=== PATIENT | male | born 1955 | race Caucasian/White ===

== ENCOUNTER 2016-07-02 08:48 | Inpatient (IN) | payer OTHER ==
[2016-07-02] MEDS ORDERED: ACETAMINOPHEN 500 MG TAB ONE (08:52)
[2016-07-02] MEDS ORDERED: NS 1,000 ML IV ONE ×2 (09:01)
[2016-07-02] MEDS ORDERED: ONDANSETRON 4 MG/2 ML VIAL IVP ONE (09:01)
[2016-07-02] MEDS ORDERED: ACETAMINOPHEN 500 MG TAB PO ONE (09:01)
--- NOTE | 2016-07-02 09:05 | EDPHY ---
H & P Stated Complaint: flu like symptoms x24-36 hours Time Seen by Provider: 07/02/16 08:51 HPI/ROS: CHIEF COMPLAINT: Fever, shaking chills, history of diabetic foot ulcer HISTORY OF PRESENT ILLNESS: The patient presents to the ED with a 1 day history of fever and shaking chills. The patient denies cough. He had 1 episode of vomiting and some loose stools. The patient is currently on Augmentin for his right diabetic foot infection. They report that his foot seems stable in terms of the erythema and swelling. The patient denies any dysuria. He has no complaints of acute abdominal pain. The patient denies sore throat or urinary frequency. The patient reports his symptoms of fever, weakness and rigors are moderate to severe in nature. REVIEW OF SYSTEMS: A comprehensive 10 point review of systems is otherwise negative aside from elements mentioned in the history of present illness. Source: Patient - Personal History Current Tetanus/Diphtheria Vaccine: Yes Current Tetanus Diphtheria and Acellular Pertussis (TDAP): Yes - Medical/Surgical History Hx Asthma: No Hx Chronic Respiratory Disease: No Hx Diabetes: Yes Hx Cardiac Disease: Yes Hx Renal Disease: Yes Hx Cirrhosis: No Hx Alcoholism: No Hx HIV/AIDS: No Hx Splenectomy or Spleen Trauma: No Other PMH: pmh- DM II, HTN, AFIB, PERIPHERAL NEUROPATHY, SLEEP APNEA, DECUBITUS ULCER TO R FOOT - Social History Smoking Status: Never smoked - Physical Exam Exam: General Appearance: Obese male, no acute distress Eyes: Pupils equal and round no pallor or injection ENT, Mouth: Mucous membranes moist Respiratory: There are no retractions, lungs are clear to auscultation Cardiovascular: Regular rate and rhythm, 2/6 systolic ejection murmur Gastrointestinal: Abdomen is soft and nontender, no masses, bowel sounds normal Neurological: A&O, normal motor function, normal sensory exam, normal cranial nerves Skin: Warm and dry, no rashes Musculoskeletal: Neck is supple nontender Extremities: Deep ulcer noted to the dorsum of the right foot with purulent drainage, tenderness and erythema noted to the right foot Constitutional: Initial Vital Signs Temperature (C) 39.5 C H 07/02/16 08:48 Heart Rate 96 07/02/16 08:48 Respiratory Rate 24 H 07/02/16 08:48 Blood Pressure 147/79 H 07/02/16 08:48 O2 Sat (%) 96 07/02/16 08:48 O2 Delivery Mode Nasal Cannula O2 (L/minute) 2 Allergies/Adverse Reactions: CATS Allergy (Mild, Uncoded 10/23/11 17:16) ITCHING/RASH Home Medications: Medication Instructions Recorded Clopidogrel Bisulfate [Plavix] 75 mg PO DAILY 11/06/10 DULoxetine [Cymbalta] 30 mg PO HS 11/06/10 FENOFIBRATE NANOCRYSTALLIZED 500 mg PO DAILY 11/06/10 [Tricor] Gabapentin [Neurontin] 600 mg PO TID 11/06/10 Insulin Glargine [Lantus Insulin 0 unit SQ HS 11/06/10 Vial] Levothyroxine [Levothroid] 175 mcg PO DAILY@1000 11/06/10 Omeprazole 20 mg PO DAILY 11/06/10 Ramipril [Altace] 1.25 mg PO DAILY 11/06/10 Rosuvastatin Calcium [Crestor] 10 mg PO DAILY 11/06/10 Vectoza 11/06/10 Medical Decision Making - Diagnostics EKG Interpretation: EKG: Complete interpretation has been separately recorded in the [employer] archive. Summary impression: Sinus rhythm, left anterior fascicular block, nonspecific T-wave changes noted Imaging: Chest x-ray PA lateral: Images reviewed by myself, negative for focal infiltrate per my interpretation. ED Course/Re-evaluation: The patient presents to the ED with fever and leukocytosis. The patient has no evidence of end-organ dysfunction. The patient does have a diabetic foot ulcer and has had a history of bacteremia from that the past. Patient had blood cultures x2 in the ED. The patient does have sepsis with positive SIRS criteria and a likely source of infection in his foot. The patient received IV vancomycin and Zosyn per recommendations of Dr. Tam Reyna from Infectious Disease. The patient will be admitted to the hospital for further management of his fever and sepsis. The patient has no evidence of severe sepsis or septic shock. Consultation was made with Dr. Vargas from the hospitalist service. The patient will be admitted for further management. Differential Diagnosis: Differential diagnosis considered includes pneumonia, influenza, sepsis, severe sepsis, septic shock, urinary tract infection, cellulitis, osteomyelitis - Data Points Laboratory Results: Laboratory Results 07/02/16 09:05 07/02/16 09:05 07/02/16 07/02/16 09:11 09:05 WBC 17.85 H 10^3/uL (3.80-9.50) RBC 5.17 10^6/uL (4.40-6.38) Hgb 13.9 g/dL (13.7-17.5) Hct 42.0 % (40.0-51.0) MCV 81.2 L fL (81.5-99.8) MCH 26.9 L pg (27.9-34.1) MCHC 33.1 g/dL (32.4-36.7) RDW 13.8 % (11.5-15.2) Plt Count 290 10^3/uL (150-400) MPV 10.6 fL (8.7-11.7) Neut % (Auto) 93.1 H % (39.3-74.2) Lymph % (Auto) 2.2 L % (15.0-45.0) [place] % (Auto) 3.8 L % (4.5-13.0) Eos % (Auto) 0.2 L % (0.6-7.6) Baso % (Auto) 0.2 L % (0.3-1.7) Nucleat RBC Rel Count 0.0 % (0.0-0.2) Absolute Neuts (auto) 16.62 H 10^3/uL (1.70-6.50) Absolute Lymphs (auto) 0.39 L 10^3/uL (1.00-3.00) Absolute Monos (auto) 0.67 10^3/uL (0.30-0.80) Absolute Eos (auto) 0.04 10^3/uL (0.03-0.40) Absolute Basos (auto) 0.04 10^3/uL (0.02-0.10) Absolute Nucleated RBC 0.00 10^3/uL (0-0.01) Immature Gran % 0.5 % (0.0-1.1) Immature Gran # 0.09 10^3/uL (0.00-0.10) VBG Lactic Acid 2.0 mmol/L (0.7-2.1) Sodium 138 mEq/L (134-144) Potassium 4.5 mEq/L (3.5-5.2) Chloride 107 mEq/L (97-110) Carbon Dioxide 24 mEq/l (22-31) Anion Gap 7 mEq/L (8-16) BUN 29 H mg/dL (7-23) Creatinine 1.7 H mg/dL (0.7-1.3) Estimated GFR 41 Glucose 210 H mg/dL (70-100) Calcium 8.7 mg/dL (8.5-10.4) Urine Color YELLOW Urine Appearance CLEAR Urine pH 5.0 (5.0-7.5) Ur Specific [place] 1.015 (1.002-1.030) Urine Protein 3+ H (NEGATIVE) Urine Ketones NEGATIVE (NEGATIVE) Urine Blood 2+ H (NEGATIVE) Urine Nitrate NEGATIVE (NEGATIVE) Urine Bilirubin NEGATIVE (NEGATIVE) Urine Urobilinogen NEGATIVE EU (0.2-1.0) Ur Leukocyte Esterase NEGATIVE (NEGATIVE) Urine RBC 5-10 H /hpf (0-3) Urine WBC 1-3 /hpf (0-3) Ur Epithelial Cells TRACE /lpf (NONE-1+) Urine Mucus TRACE /lpf (NONE-1+) Ur Culture Indicated? NOT INDICATED (NI) Urine Glucose 2+ H (NEGATIVE) Influenza A & B (PCR) NEGATIVE FOR FLU (NEGATIVE) Medications Given: Discontinued Medications Acetaminophen (Tylenol) 1,000 mg PO EDNOW ONE Stop: 07/02/16 09:02 Last Admin: 07/02/16 09:01 Dose: 1,000 mg Sodium Chloride (Ns) 1,000 mls @ 0 mls/hr IV EDNOW ONE PRN Reason: Wide Open Stop: 07/02/16 09:02 Last Admin: 07/02/16 09:10 Dose: 1,000 mls Sodium Chloride (Ns) 1,000 mls @ 0 mls/hr IV EDNOW ONE PRN Reason: Wide Open Stop: 07/02/16 09:02 Last Admin: 07/02/16 09:10 Dose: 1,000 mls Ondansetron HCl (Zofran) 4 mg IVP EDNOW ONE Stop: 07/02/16 09:02 Last Admin: 07/02/16 09:10 Dose: 4 mg Departure - Departure Disposition: [facility] Acute Clinical Impression: Sepsis affecting skin, Chronic renal insufficiency, Chronic kidney disease stage 3, Diabetic foot ulcer Condition: Fair
[2016-07-02 09:18] LABS: % IMMATURE GRANULYOCYTES 0.5 % (0.0-1.1); ABSOLUTE IMMATURE GRANULOCYTES 0.09 10^3/uL (0.00-0.10); ADD DIFF? NO; ADD MORPH? NO; ADD SCAN? NO; ATYPICAL LYMPHOCYTE FLAG 0 (0-99); FRAGMENT RBC FLAG 0 (0-99); HEMOGLOBIN 13.9 g/dL (13.7-17.5); LEFT SHIFT FLG 0 (0-99); LIPEMIA HEMOLYSIS FLAG 80 (0-99); MEAN CELL HEMOGLOBIN 26.9 pg (27.9-34.1); MEAN CELL HEMOGLOBIN CONCENTR. 33.1 g/dL (32.4-36.7); MEAN CELL VOLUME 81.2 fL (81.5-99.8); MEAN PLATELET VOLUME 10.6 fL (8.7-11.7); PLATELET CLUMPS FLAG 0 (0-99); PLATELET COUNT 290 10^3/uL (150-400); RED BLOOD CELL COUNT 5.17 10^6/uL (4.40-6.38); RED CELL DISTRIBUTION WIDTH 13.8 % (11.5-15.2)
[2016-07-02 09:29] LABS: COLOR YELLOW; LEUKOCYTE ESTERASE,URINE NEGATIVE (NEGATIVE); NITRITE,URINE NEGATIVE (NEGATIVE)
--- NOTE | 2016-07-02 09:35 | CPEKG ---
Heart Rate: 96 RR Interval: 625 P-R Interval: 192 QRSD Interval: 92 QT Interval: 364 QTC Interval: 460 P [place]: 49 QRS [place]: -56 T Wave [place]: 100 EKG Severity - ABNORMAL ECG - EKG Impression: SINUS RHYTHM EKG Impression: LEFT ANTERIOR FASCICULAR BLOCK EKG Impression: NONSPECIFIC T ABNORMALITIES, LATERAL LEADS Electronically Signed By: Bandar Kwan 02-Jul-2016 14:52:27
[2016-07-02 09:37] LABS: ANION GAP 7 mEq/L (8-16); CALCIUM 8.7 mg/dL (8.5-10.4); CARBON DIOXIDE 24 mEq/l (22-31); CHLORIDE 107 mEq/L (97-110); CREATININE 1.7 mg/dL (0.7-1.3); GLOMERULAR FILTRATION RATE 41; GLUCOSE 210 mg/dL (70-100); POTASSIUM 4.5 mEq/L (3.5-5.2); SODIUM 138 mEq/L (134-144)
[2016-07-02 09:37] LABS: MUCUS TRACE /lpf (NONE-1+)
--- NOTE | 2016-07-02 10:38 | DX ---
PA and Lateral Chest 9:23 a.m. Indication: Fever Comparison: 2 view chest dated April 08, 2008 Findings: Lungs are clear except for mild unchanged diffuse peribronchial thickening. No airspace con solidation, edema or effusion. Minimal cardiomegaly is new since 2007. Impression: 1. No pneumonia. Mild chronic airways disease. 2. New minimal cardiomegaly. No failure.
[2016-07-02] MEDS ORDERED: VANCOMYCIN HCL/NORMAL SALINE 250 ML IV ONE (11:01)
[2016-07-02] MEDS ORDERED: VANCOMYCIN 1.5 GM in D5W 250 ML IV ONE (11:02)
[2016-07-02] MEDS ORDERED: PIPERACILLIN/TAZO 4.5 GM/DEX 100 ML IV ONE (11:02)
[2016-07-02] MEDS ORDERED: ONDANSETRON DISINTEGRATING 4 MG TAB PO PRN (13:15)
[2016-07-02] MEDS ORDERED: D50W 25 GM/50 ML SYR IVP PRN (13:19)
--- NOTE | 2016-07-02 13:24 | PDGENHP ---
History and Physical - Chief Complaint Acute rigors - History of Present Illness PCP: Dr. Kern Primary infectious Disease: Dr. Reyna HPI: 61-year-old male presenting with acute rigors characterized as moderate to severe chills with associated fever and weakness, onset of symptoms at 4:00 a.m. on the day of presentation and duration persistent thereafter. Patient reports that he had otherwise been feeling well on the day prior to this presentation and he had gone to bed on the evening prior without any symptoms. That being said, the patient reports that he had a particularly large meal 2 days prior to this presentation and had resulted loose bowel movements for approximately 24 hours. Outside of these after mentioned symptoms, the patient reports that he has not had any sore throat, cough, dysuria, vomiting, worsening pain or erythema in his bilateral lower extremities. He does report that the fevers seemed to be alleviated by IV antibiotics received in the emergency department. His symptoms have occurred in the context of receiving approximately 1 and half weeks oral Augmentin therapy approximately 2-3 months ago. The patient reports that he has not been taking antibiotics immediately prior to this presentation. The patient has not taken any of his home medications on the morning of this presentation. The patient reports that his fasting blood glucose levels range between 103,970 on regular basis. He takes 100 units of Levemir twice daily and does not utilize a mealtime insulin sliding scale. History Information - Allergies/Home Medication List Allergies/Adverse Reactions: CATS Allergy (Mild, Uncoded 10/23/11 17:16) ITCHING/RASH Home Medications: Clopidogrel Bisulfate [Plavix] 75 mg PO DAILY 11/06/10 [Last Taken Unknown] DULoxetine [Cymbalta] 30 mg PO HS 11/06/10 [Last Taken 03/25/14 07:00] FENOFIBRATE NANOCRYSTALLIZED [Tricor] 500 mg PO DAILY 11/06/10 [Last Taken 03/25 20:00] Gabapentin [Neurontin] 600 mg PO TID 11/06/10 [Last Taken 03/26/14 05:00] Insulin Glargine [Lantus Insulin Vial] 0 unit SQ HS 11/06/10 [Last Taken Unknown ] Levothyroxine [Levothroid] 175 mcg PO DAILY@1000 11/06/10 [Last Taken 03/25/14 20:00] Omeprazole 20 mg PO DAILY 11/06/10 [Last Taken 03/25/14 08:00] Ramipril [Altace] 1.25 mg PO DAILY 11/06/10 [Last Taken Unknown] Rosuvastatin Calcium [Crestor] 10 mg PO DAILY 11/06/10 [Last Taken Unknown] Vectoza 11/06/10 [Last Taken Unknown] I have personally reviewed and updated: family history, medical history, social history, surgical history - Past Medical History atrial fibrillation (Status post ablation x2, currently on Xarelto), coronary artery disease (With cardiac stents in the , most recent nuclear stress test from March 2016 demonstrating small amount of ischemia at the apex as well as a fixed defect), hypertension, hyperlipidemia Additional medical history: Chronic kidney disease stage 3 with baseline serum creatinine level 1.6-1.9. Insulin-dependent diabetes. Ankle osteo myelitis. Bacteremia. Right lower extremity deep venous thrombosis prior to 2010. Chronic lower extremity wounds - Surgical History Additional surgical history: Numerous foot surgeries - Family History Additional family history: First-degree relatives with sarcoidosis as well as diabetes mellitus - Social History Smoking Status: Never smoked Alcohol Use: None Drug Use: None Additional social history: Normally independent in his ADLs Review of Systems ROS: 10pt was reviewed & negative except for what was stated in HPI & below Constitutional: Reports: chills, fever, weakness Physical Exam Temp Pulse Resp BP Pulse Ox 37.2 C 81 18 120/56 L 96 07/02/16 12:34 07/02/16 12:34 07/02/16 12:34 07/02/16 12:34 07/02/16 12:34 O2 (L/minute) 2 Constitutional: no apparent distress, appears nourished, not in pain, obese, No uncomfortable Eyes: PERRL, anicteric sclera, EOMI Ears, Nose, Mouth, Throat: moist mucous membranes, hearing normal, ears appear normal, no oral mucosal ulcers Cardiovascular: regular rate and rhythym, no murmur, rub, or gallop, No irregularly irregular, No tachycardia, No edema Respiratory: no respiratory distress, no rales or rhonchi, clear to auscultation Gastrointestinal: normoactive bowel sounds, soft, non-tender abdomen, no palpable masses Skin: other (Ulcerations on the bilateral lower extremities, right plantar surface with created ulceration, no surrounding erythema, abrasion on the anterior right calf) Musculoskeletal: other (Full range of motion bilateral ankles without any pain, full range of motion of the toes without any pain) Neurologic: AAOx3, No sensation intact bilaterally (Paresthesias over the bilateral plantar surfaces of his feet), No weakness (Motor 5/5 bilateral lower extremity) Psychiatric: interacting appropriately, not anxious, not encephalopathic, thought process linear Lab Data & Imaging Review 07/02/16 09:05 07/02/16 09:05 WBC 17.85 10^3/uL (3.80-9.50) H 07/02/16 09:05 RBC 5.17 10^6/uL (4.40-6.38) 07/02/16 09:05 Hgb 13.9 g/dL (13.7-17.5) 07/02/16 09:05 Hct 42.0 % (40.0-51.0) 07/02/16 09:05 MCV 81.2 fL (81.5-99.8) L 07/02/16 09:05 MCH 26.9 pg (27.9-34.1) L 07/02/16 09:05 MCHC 33.1 g/dL (32.4-36.7) 07/02/16 09:05 RDW 13.8 % (11.5-15.2) 07/02/16 09:05 Plt Count 290 10^3/uL (150-400) 07/02/16 09:05 MPV 10.6 fL (8.7-11.7) 07/02/16 09:05 Neut % (Auto) 93.1 % (39.3-74.2) H 07/02/16 09:05 Lymph % (Auto) 2.2 % (15.0-45.0) L 07/02/16 09:05 [place] % (Auto) 3.8 % (4.5-13.0) L 07/02/16 09:05 Eos % (Auto) 0.2 % (0.6-7.6) L 07/02/16 09:05 Baso % (Auto) 0.2 % (0.3-1.7) L 07/02/16 09:05 Nucleat RBC Rel Count 0.0 % (0.0-0.2) 07/02/16 09:05 Absolute Neuts (auto) 16.62 10^3/uL (1.70-6.50) H 07/02/16 09:05 Absolute Lymphs (auto) 0.39 10^3/uL (1.00-3.00) L 07/02/16 09:05 Absolute Monos (auto) 0.67 10^3/uL (0.30-0.80) 07/02/16 09:05 Absolute Eos (auto) 0.04 10^3/uL (0.03-0.40) 07/02/16 09:05 Absolute Basos (auto) 0.04 10^3/uL (0.02-0.10) 07/02/16 09:05 Absolute Nucleated RBC 0.00 10^3/uL (0-0.01) 07/02/16 09:05 Immature Gran % 0.5 % (0.0-1.1) 07/02/16 09:05 Immature Gran # 0.09 10^3/uL (0.00-0.10) 07/02/16 09:05 VBG Lactic Acid 2.0 mmol/L (0.7-2.1) 07/02/16 09:05 Sodium 138 mEq/L (134-144) 07/02/16 09:05 Potassium 4.5 mEq/L (3.5-5.2) 07/02/16 09:05 Chloride 107 mEq/L (97-110) 07/02/16 09:05 Carbon Dioxide 24 mEq/l (22-31) 07/02/16 09:05 Anion Gap 7 mEq/L (8-16) 07/02/16 09:05 BUN 29 mg/dL (7-23) H 07/02/16 09:05 Creatinine 1.7 mg/dL (0.7-1.3) H 07/02/16 09:05 Estimated GFR 41 07/02/16 09:05 Glucose 210 mg/dL (70-100) H 07/02/16 09:05 Calcium 8.7 mg/dL (8.5-10.4) 07/02/16 09:05 Urine Color YELLOW 07/02/16 09:11 Urine Appearance CLEAR 07/02/16 09:11 Urine pH 5.0 (5.0-7.5) 07/02/16 09:11 Ur Specific [place] 1.015 (1.002-1.030) 07/02/16 09:11 Urine Protein 3+ (NEGATIVE) H 07/02/16 09:11 Urine Ketones NEGATIVE (NEGATIVE) 07/02/16 09:11 Urine Blood 2+ (NEGATIVE) H 07/02/16 09:11 Urine Nitrate NEGATIVE (NEGATIVE) 07/02/16 09:11 Urine Bilirubin NEGATIVE (NEGATIVE) 07/02/16 09:11 Urine Urobilinogen NEGATIVE EU (0.2-1.0) 07/02/16 09:11 Ur Leukocyte Esterase NEGATIVE (NEGATIVE) 07/02/16 09:11 Urine RBC 5-10 /hpf (0-3) H 07/02/16 09:11 Urine WBC 1-3 /hpf (0-3) 07/02/16 09:11 Ur Epithelial Cells TRACE /lpf (NONE-1+) 07/02/16 09:11 Urine Mucus TRACE /lpf (NONE-1+) 07/02/16 09:11 Ur Culture Indicated? NOT INDICATED (NI) 07/02/16 09:11 Urine Glucose 2+ (NEGATIVE) H 07/02/16 09:11 Influenza A & B (PCR) NEGATIVE FOR FLU (NEGATIVE) 07/02/16 09:05 Visualized and Interpreted Chest x-ray results: Yes Chest X-Ray results: no infiltrate, other (Cardiomegaly) Visualized and Interpreted EKG results: Yes EKG Interpretation: Positive for: other (Left anterior fascicular block) Assessment & Plan Assessment: 61-year-old male presenting with sepsis in the setting of lower extremity wounds Plan: 1. Sepsis. Acute, new problem this provider, further workup indicated. Evidenced by fever of 39.5+ tachycardia of 96+ tachypnea of 24+ leukocytosis white blood cell count of 17,900 plus clear evidence of infection with lower extremity wounds and suspected bacteremia, resulting in autonomic dysregulation requiring empiric IV fluids (2 L received in the emergency department) plus empiric IV antibiotics -hypotensive with systolic blood pressure 90 emergency department, continue IV normal saline and repeat serum lactic acid level if recurrent hypotension identified -discussed with Dr. Kwan in the emergency department, we both believe that the patient meets criteria for sepsis and should be treated as such -send blood cultures to evaluate for bacteremia -flu PCR negative -continue empiric IV vancomycin and IV Zosyn, both renally dosed 2. Lower extremity wounds. Chronic, most likely source of infection, infectious Disease consultation appreciated -wound care consultation ordered, will hold on surgical wound consultation until the patient has been evaluated by our wound care team 3. Chronic kidney disease stage 3. Stay patient's serum creatinine level is currently at baseline, continue to monitor closely -he is at risk for volume overload, continue to monitor strict I&Os as well as daily weights -will be holding his diuretic and ARB therapy given his acute infection 4. Paroxysmal atrial fibrillation. Status post ablation x2, continue on beta- cee, adjust from atenolol to metoprolol given history of chronic kidney disease -continue Xarelto -monitor for RVR on telemetry 5. Insulin-dependent diabetes mellitus. Chronic, I reviewed outside records including [facility] note by Dr. Degroot, at that time she reported that patient's blood glucose levels were particularly uncontrolled and encouraged better management in the outpatient setting -get hemoglobin A1c -placed on mealtime insulin sliding scale and continue home dosing of 100 units twice daily 6. Hypertension. Chronic, continue home medications with the exception of diuretic and ARB 7. Chronic coronary artery disease. Currently no chest pain, continue low-dose aspirin Diet. Diabetic Prophylaxis. High risk patient, currently on Xarelto Code. Full, is MPOA Disposition. Anticipated discharge uncertain this time, anticipated length stay is greater than 48 hours warranting inpatient admission status for acute sepsis in the setting of lower extremity wounds with suspected bacteremia and blood culture monitoring with IV empiric antibiotics required. Patient has numerous comorbid conditions as mentioned above which rendered him high risk for morbidity and mortality.
[2016-07-02] MEDS: METOPROLOL TARTRATE 25 MG TAB PO SCH ×2 (15:04→20:46)
[2016-07-02] MEDS: ACETAMINOPHEN 325 MG TAB PO PRN ×2 (15:09→23:32)
[2016-07-02] MEDS: NS 1,000 ML IV SCH ×2 (15:10→20:45)
[2016-07-02] MEDS ORDERED: DICYCLOMINE 20 MG TAB PO PRN (16:05)
[2016-07-02] MEDS ORDERED: RIVAROXABAN 10 MG TAB PO SCH (16:30)
[2016-07-02] MEDS ORDERED: NON-FORMULARY NEW DRUG (Dulaglutide [Trulicity] 1.5 MG) SQ SCH (16:30)
--- NOTE | 2016-07-02 16:53 | WOCRNPDOC ---
[facility] Advanced Assessment Note - Skin Integrity Problem, Advanced Assess Right Medial Foot Diabetic Ulcer Dressing Type: Gauze Dressing Description: Intact, Saturated Exudate Amount: Minimal Exudate Characteristic(s): Serosanguinous Integumentary Issue Intervention: Visualized Under Dressing Linda Wound Tissue: Erythema (marked before wound consult), Calloused Wound Bed Color: Red, Yellow Wound Bed Constitution: Granulation Tissue (70%), Smooth Tissue (20%), Adhered Slough (10%) Wound Edges: Thick Site Measurement - Head-to-Toe Length X Width X Depth (cm): 6x3.1x0.7 Skin Integrity Problem Comment: Dr. Degroot to assess tomorrow and possibly inject with Amniofill. Graft that was placed on 06/28 has been removed. There may be some reminants in wound bed. Area was not cleaned aggressively to preserve what may remain of the graft. Dressing given to Rn Alvaro to place. Family did not have any questions. Left Second Toe Dressing Type: Open to Air Wound Bed Constitution: Scab Site Measurement - Head-to-Toe Length X Width X Depth (cm): 0.5x0.8xscab Skin Integrity Problem Comment: Toenail missing. Will write wound orders. No surrounding erythema. Left Lower Medial Leg Dressing Type: Open to Air Wound Bed Constitution: Healed (90%) Wound Edges: Epithelizing, Attached Site Measurement - Head-to-Toe Length X Width X Depth (cm): 0.5x1x0.1 Skin Integrity Problem Comment: Healing wound with no concerns. Will cover for protection.
[2016-07-02] MEDS: RIVAROXABAN 20 MG TAB PO SCH (17:00)
[2016-07-02] MEDS: INSULIN REGULAR HUMAN 100 UNIT/ML SC SCH ×2 (18:07→20:45)
--- NOTE | 2016-07-02 18:13 | PCMIDPN ---
Assessment/Plan: Assessment/Plan: * Sepsis likely due to right lower extremity cellulitis/skin and soft tissue infection associated with chronic plantar wound: Fever and rigors concerning for concomitant bacteremia. Previous remote history of MRSA bacteremia. Primary concerns would be for Staphylococcus aureus including MRSA or beta- hemolytic streptococci based on appearance. Given chronicity of wound, gram- negative rods and anaerobes including Pseudomonas are of consideration. Will continue empiric vancomycin and Zosyn pending further culture data. 07/02/16 18:09 Subjective: Patient well known to me [facility] Recent application of Amniofix to plantar wound; patient thinks large amount came off due to drainage. Patient admitted to hospital after presenting to the emergency department with fever, rigors and inability to get out of bed this a.m.. Patient noted fever of 103 with shaking chills. [place] too weak to get out of bed to come in to wound clinic for evaluation and therefore called 911. Patient notes that right lower extremity may be faintly erythematous over last 2 days. He does describe having diarrhea and excessive flatulence on Saturday after eating a large carbohydrate laden meal - diarrhea now resolved. Some associated nausea but no vomiting. No cough or shortness of breath. No urinary tract symptoms. Evaluation in emergency department revealed prominent leukocytosis with temperature to 39.5. Feels clinically improved after receiving IV rehydration and initial antibiotic therapy. No recent travel. Objective: Vital Signs Temp Pulse Resp BP Pulse Ox 38.1 C 91 18 97/76 L 92 07/02/16 17:00 07/02/16 15:44 07/02/16 15:44 07/02/16 15:44 07/02/16 15:44 07/01/16 07/02/16 07/03/16 05:59 05:59 05:59 Intake Total 1300 Balance 1300 Status post vancomycin and Zosyn in emergency department; no preceding antibiotic therapy Chest x-ray no infiltrate Flu PCR negative Blood cultures x2 pending - Physical Exam General Appearance: alert, no apparent distress EENT: pharynx normal, No scleral icterus, No conjunctival petechiae Respiratory: lungs clear, No respiratory distress Cardiac/Chest: regular rate, rhythm, No systolic murmur Extremities: inflammation (Faint erythema over right lower extremity with mild warmth and tenderness; plantar ulceration without purulent drainage and mixed granulation with small amount slough; no surrounding erythema at wound margins) Abdomen: non-tender, No distended Skin: No embolic lesions Neuro/Psych: alert, No confused ICD10 Worksheet Patient Problems: Problems Problem Status Diagnosed Chronic kidney disease stage 3 Acute Chronic renal insufficiency Acute Diabetic foot ulcer Acute Sepsis affecting skin Acute CAD - Coronary arteriosclerosis Active Diabetic neuropathy Active History of - deep vein thrombosis Active Insulin-treated [id number] diabetes mellitus Active 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
[2016-07-02] MEDS: PIPERACILLIN/TAZO 3.375 GM/DEX 50 ML IV SCH (20:45)
[2016-07-02] MEDS: DULoxetine 30 MG CAP PO SCH (20:46)
[2016-07-02] MEDS ORDERED: INSULIN DETEMIR SQ SCH (21:00)
[2016-07-02] MEDS ORDERED: [UNRECOGNIZED DRUG - OTHER] SQ SCH (21:00)
[2016-07-02] MEDS ORDERED: GABAPENTIN 100 MG CAP PO SCH (22:00)
[2016-07-03] MEDS: NS 1,000 ML IV SCH ×2 (04:02→10:59)
[2016-07-03] MEDS: PIPERACILLIN/TAZO 3.375 GM/DEX 50 ML IV SCH (04:02)
[2016-07-03] MEDS: LEVOTHYROXINE 125 MCG TAB PO SCH (04:02)
[2016-07-03 05:27] LABS: % IMMATURE GRANULYOCYTES 0.4 % (0.0-1.1); ABSOLUTE IMMATURE GRANULOCYTES 0.06 10^3/uL (0.00-0.10); ADD DIFF? NO; ADD MORPH? NO; ADD SCAN? NO; ATYPICAL LYMPHOCYTE FLAG 0 (0-99); FRAGMENT RBC FLAG 0 (0-99); HEMATOCRIT 34.6 % (40.0-51.0); LEFT SHIFT FLG 20 (0-99); LIPEMIA HEMOLYSIS FLAG 80 (0-99); MEAN CELL HEMOGLOBIN 26.9 pg (27.9-34.1); MEAN CELL HEMOGLOBIN CONCENTR. 31.8 g/dL (32.4-36.7); MEAN CELL VOLUME 84.6 fL (81.5-99.8); MEAN PLATELET VOLUME 10.9 fL (8.7-11.7); PLATELET CLUMPS FLAG 0 (0-99); PLATELET COUNT 230 10^3/uL (150-400); RED BLOOD CELL COUNT 4.09 10^6/uL (4.40-6.38); RED CELL DISTRIBUTION WIDTH 14.4 % (11.5-15.2)
[2016-07-03 05:54] LABS: ANION GAP 5 mEq/L (8-16); CALCIUM 7.3 mg/dL (8.5-10.4); CARBON DIOXIDE 20 mEq/l (22-31); CHLORIDE 110 mEq/L (97-110); CREATININE 3.5 mg/dL (0.7-1.3); GLOMERULAR FILTRATION RATE 18; GLUCOSE 121 mg/dL (70-100); POTASSIUM 4.6 mEq/L (3.5-5.2); SODIUM 135 mEq/L (134-144)
[2016-07-03] MEDS: INSULIN REGULAR HUMAN 100 UNIT/ML SC SCH ×4 (09:44→20:34)
[2016-07-03 09:48] LABS: HEMOGLOBIN A1C 8.9 % (4.0-6.0)
[2016-07-03] MEDS: LANSOPRAZOLE SUSP 3 MG/ML UDSYR (Peds) PO SCH (10:06)
[2016-07-03] MEDS: METOPROLOL TARTRATE 25 MG TAB PO SCH ×2 (10:07→20:47)
[2016-07-03] MEDS: FENOFIBRATE 145 MG TAB PO SCH (10:07)
[2016-07-03] MEDS: RIVAROXABAN 15 MG TAB PO SCH (10:08)
[2016-07-03] MEDS: ASPIRIN EC 81 MG TAB PO SCH (10:08)
[2016-07-03] MEDS: GABAPENTIN 100 MG CAP PO SCH ×3 (10:08→20:47)
[2016-07-03] MEDS: INSULIN DETEMIR 75 UNIT SQ SCH ×2 (10:36→20:48)
[2016-07-03] MEDS: RIVAROXABAN 20 MG TAB PO SCH (10:53)
[2016-07-03] MEDS: PIPERACILLIN/TAZO 2.25 GM/DEX 50 ML IV SCH ×2 (11:14→18:28)
[2016-07-03] MEDS ORDERED: VANCOMYCIN 1.5 GM in D5W 250 ML IV SCH (12:00)
--- NOTE | 2016-07-03 12:02 | PCMIDPN ---
Assessment/Plan: Assessment/Plan: * Sepsis likely due to right lower extremity cellulitis/skin and soft tissue infection associated with chronic plantar wound: Persistent fever and leukocytosis with negative blood cultures to date. Right lower extremity erythema less prominent. Continue empiric Zosyn dose adjusted for renal insufficiency. Hold vancomycin as outlined below given abrupt increase in creatinine to 3.5. Will check random level as suspect he will still be therapeutic at this point in time. * Diarrhea: Recurrent diarrhea x2 this a.m. after having diarrhea on Saturday; will obtain GI pathogen PCR panel for further evaluation. * Acute on chronic renal failure: Likely due to ATN associated with hypovolemia and decreased blood pressure. Antibiotic adjustments as outlined above. Findings and plan were reviewed with patient, Dr. Degroot, and Dr. Vargas. 07/03/16 11:59 Subjective: Patient feels improved. Complains of diarrhea x2 this a.m. with 1 accident. Objective: Vital Signs Temp Pulse Resp BP Pulse Ox 36.8 C 67 18 116/59 L 93 07/03/16 11:28 07/03/16 11:28 07/03/16 11:28 07/03/16 11:28 07/03/16 11:28 Laboratory Results 07/03/16 04:17 07/03/16 04:17 07/02/16 07/03/16 07/04/16 05:59 05:59 05:59 Intake Total 1800 Output Total 750 Balance 1050 Vancomycin # 2 Zosyn # 2 Blood cultures x2 no growth Tm 39.5 - Physical Exam General Appearance: alert, no apparent distress EENT: pharynx normal, dry mucous membranes, No scleral icterus, No conjunctival petechiae Respiratory: lungs clear, No respiratory distress Cardiac/Chest: regular rate, rhythm, No systolic murmur Extremities: inflammation (Right lower extremity with less intense erythema above ankle; plantar wound without change in no purulent drainage or surrounding erythema; less tender over anterior whitaker) Abdomen: non-tender, No distended ICD10 Worksheet Patient Problems: Problems Problem Status Diagnosed Chronic kidney disease stage 3 Acute Chronic renal insufficiency Acute Diabetic foot ulcer Acute Sepsis affecting skin Acute CAD - Coronary arteriosclerosis Active Diabetic neuropathy Active History of - deep vein thrombosis Active Insulin-treated hst-sjhtotn-xxcgddttl diabetes mellitus Active 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
[2016-07-03] MEDS: ACETAMINOPHEN 325 MG TAB PO PRN (13:46)
[2016-07-03 13:47] LABS: COLOR YELLOW; LEUKOCYTE ESTERASE,URINE NEGATIVE (NEGATIVE); NITRITE,URINE NEGATIVE (NEGATIVE)
[2016-07-03 14:08] LABS: MUCUS TRACE /lpf (NONE-1+)
--- NOTE | 2016-07-03 14:16 | HOSPPROG ---
Hospitalist Progress Note Assessment/Plan: Assessment: 61-year-old male presenting with sepsis in the setting of lower extremity wounds /cellulitis Plan: 1. Sepsis. Evidenced by fever of 39.5+ tachycardia of 96+ tachypnea of 24+ leukocytosis white blood cell count of 17,900 plus clear evidence of infection with lower extremity wounds/cellulitis and suspected bacteremia, resulting in autonomic dysregulation requiring empiric IV fluids (2 L received in the emergency department) plus empiric IV antibiotics -CXR w/o focal infiltrate (personally interpreted) -hypotensive with systolic blood pressure 90 emergency department, developed HARSHIL as a result -fever persists, monitoring BCx, monitoring WBC -cont Abx and IVF 2. Lower extremity wounds/cellulitis. Most likely source of infection -appreciate wound care and surgical wound consult by Dr. Degroot -d/w Dr. Reyna, will cont zosyn renally dosed and check vanco level, holding dose presently given HARSHIL 3. HARSHIL on Chronic kidney disease stage 3. Acute, new problem to this provider, further w/u indicated. Rapid rise in Cr from 1.7 to 3.5 likely 2/2 hypoperfusion w/ SBP 90s yesterday -repeat UA demonstrating RBCs, unclear if industrial sales representative of dysmorphic RBCs and evolution of ATN -cont NS at 150cc/hr, net positive 6lbs, monitor for signs of overload -get FeNa, and if > 1% will get RENE, consult renal, and consider slowing IVF -monitor strict I/O, weights -cont holding diuretic/ARB (last dose 07/01) -reduce insulin and gabapentin 4. Paroxysmal atrial fibrillation. Status post ablation x2, continue on beta- cee, adjust from atenolol to metoprolol given history of chronic kidney disease -continue Xarelto -monitor for RVR on telemetry 5. Insulin-dependent diabetes mellitus. Chronic, I reviewed outside records including 05/03/2016 [facility] note by Dr. Degroot, at that time she reported that patient's blood glucose levels were particularly uncontrolled and encouraged better management in the outpatient setting -get hemoglobin A1c -placed on mealtime insulin sliding scale and reduce lantus to 75u bid given his renal insufficiency 6. Hypertension. Chronic, hold home Rx given hypotension 7. Chronic coronary artery disease. Continue low-dose aspirin -if chest pain, get EKG/trop Diet. Diabetic Prophylaxis. High risk patient, currently on Xarelto Code. Full, is MPOA Disposition. Anticipated discharge uncertain this time, pending clinical stability. Subjective: Patient with some right-sided chest discomfort, oliguria, beginning to have some diarrhea Objective: Vital Signs Temp Pulse Resp BP Pulse Ox 36.8 C 67 18 116/59 L 93 07/03/16 11:28 07/03/16 11:28 07/03/16 11:28 07/03/16 11:28 07/03/16 11:28 Laboratory Results 07/03/16 04:17 07/03/16 04:17 07/02/16 07/03/16 07/04/16 05:59 05:59 05:59 Intake Total 1800 Output Total 750 Balance 1050 - Physical Exam Constitutional: no apparent distress, not in pain, obese, No uncomfortable Cardiovascular: systolic murmur (1 6 at the sternum), edema (2+ bilateral lower extremity), No irregularly irregular, No tachycardia Respiratory: no respiratory distress, no rales or rhonchi, clear to auscultation Gastrointestinal: normoactive bowel sounds, soft, non-tender abdomen, no palpable masses Skin: other (Bandaged wounds bilateral lower extremities plantar and dorsal surfaces of feet without a significant amount of surrounding induration) Musculoskeletal: full muscle strength, no muscle tenderness, normal joint ROM Neurologic: AAOx3, sensation intact bilaterally Psychiatric: interacting appropriately, not anxious, not encephalopathic, thought process linear ICD10 Worksheet Patient Problems: Problems Problem Status Diagnosed Chronic kidney disease stage 3 Acute Chronic renal insufficiency Acute Diabetic foot ulcer Acute Sepsis affecting skin Acute CAD - Coronary arteriosclerosis Active Diabetic neuropathy Active History of - deep vein thrombosis Active Insulin-treated bqs-svjqfyc-nockukyko diabetes mellitus Active 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
--- NOTE | 2016-07-03 15:59 | CPEKG ---
Heart Rate: 76 RR Interval: 789 P-R Interval: 188 QRSD Interval: 92 QT Interval: 400 QTC Interval: 450 P [place]: 26 QRS [place]: -41 T Wave [place]: 76 EKG Severity - OTHERWISE NORMAL ECG - EKG Impression: SINUS RHYTHM EKG Impression: LEFT AXIS DEVIATION Electronically Signed By: Toshia Gallegos 03-Jul-2016 16:31:38
[2016-07-03] MEDS ORDERED: CEPACOL LOZENGE PO PRN (17:48)
--- NOTE | 2016-07-03 18:11 | SOAPPROG ---
SOAP Progress Note Assessment/Plan: Assessment: 61-year-old man well known to the our service for chronic diabetic foot wound of his right plantar foot Admitted for cellulitis of RLE, wound likely source of infection Will place amniofill to the wound tomorrow 07/04/16 Discussed with Appreciate hospitalists and ID S: feeling well. no complaints O: sitting upright in bed, NAD R plantar wound clean and dry. no overt evidence of infection RLE cellulitis receeding from marked line Objective: Vital Signs Temp Pulse Resp BP Pulse Ox 37.4 C 77 16 136/72 H 94 07/03/16 16:00 07/03/16 16:00 07/03/16 16:00 07/03/16 16:00 07/03/16 16:00 Laboratory Results 07/03/16 04:17 07/03/16 04:17 07/02/16 07/03/16 07/04/16 05:59 05:59 05:59 Intake Total 1800 Output Total 750 Balance 1050 ICD10 Worksheet Patient Problems: Problems Problem Status Diagnosed Chronic kidney disease stage 3 Acute Chronic renal insufficiency Acute Diabetic foot ulcer Acute Sepsis affecting skin Acute CAD - Coronary arteriosclerosis Active Diabetic neuropathy Active History of - deep vein thrombosis Active Insulin-treated ill-sowcuwl-qidxukxsr diabetes mellitus Active 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
[2016-07-03] MEDS: DULoxetine 30 MG CAP PO SCH (20:48)
[2016-07-03] MEDS ORDERED: hydrALAZINE 20 MG/ML VIAL IVP PRN (21:49)
[2016-07-03] MEDS: ONDANSETRON 4 MG/2 ML VIAL IVP PRN (22:07)
[2016-07-03] MEDS ORDERED: FUROSEMIDE 20 MG/2 ML VIAL IVP ONE (22:11)
--- NOTE | 2016-07-03 22:32 | DX ---
Portable Chest, Single View 22:01 Hours Indication: Hypoxemia and shortness of breath. Comparison: Two-view chest dated July 02, 2016 Findings: New moderate diffuse interstitial pattern evidenced by peribronchial cuffing, Bj B line s, and thickening of the fissures has developed since one day prior. Minimal cardiomegaly unchanged. No lobar airspace consolidation. Impression: New interstitial pattern may be manifestation of viral pneumonitis, drug reaction, or CH F.
[2016-07-04] MEDS: PIPERACILLIN/TAZO 2.25 GM/DEX 50 ML IV SCH ×2 (00:24→05:41)
[2016-07-04] MEDS: ACETAMINOPHEN 325 MG TAB PO PRN (00:24)
--- NOTE | 2016-07-04 05:12 | GCON ---
[f rep st] CONSULTATION WOUND HEALING CENTER CONSULTATION DATE OF CONSULTATION: 07/03/2016 CHIEF COMPLAINT: Right lower extremity cellulitis. HISTORY OF PRESENT ILLNESS: The patient is a 61-year-old man, who was admitted to the hospital with rigors. He is well known to me in the outpatient wound healing center. He has a large diabetic foot ulcer at the plantar surface of his wound. He has been working on improving his hemoglobin A1c; at the end of May it was 10. He has recently been fit with an orthotic to offload the wound. Continues to be active. AMNIOEXCEL was placed at his last wound healing center visit. PAST MEDICAL HISTORY: Diabetes, renal insufficiency. PAST SURGICAL HISTORY: Multiple surgeries to his feet. ALLERGIES: No known drug allergies. SOCIAL HISTORY: Denies tobacco use. Denies alcohol use. He is working. FAMILY HISTORY: Significant for diabetes. REVIEW OF SYSTEMS: A 10-point review of systems negative. PHYSICAL EXAM: GENERAL: Well-nourished well-groomed man sitting up in bed. HEENT: Normocephalic. No gross hearing deficits. Mucous membranes moist. Pupils equal, round. LUNGS: No increased work of breathing. CARDIAC: Slight peripheral edema. SKIN: The wound on his right lower extremity is more edematous and indurated. The wound measures approximately 5 x 3 with at least 1 cm in depth. The depth appears slightly less deep than when I saw him in the office a week ago. There is granulation tissue at the base. IMPRESSION AND PLAN: The patient is a 61-year-old poorly controlled diabetic, now with acute kidney injury, with lower extremity cellulitis. He will continue antibiotics. I may place AmnioFil and suture this into the wound to cover the wound bed, to help accelerate wound healing. This is the likely source of infection. His GI panel is negative. I will continue to follow him. /[id number]/MODL MTDD
[2016-07-04 05:29] LABS: % IMMATURE GRANULYOCYTES 0.7 % (0.0-1.1); ABSOLUTE IMMATURE GRANULOCYTES 0.08 10^3/uL (0.00-0.10); ADD DIFF? NO; ADD MORPH? NO; ADD SCAN? NO; ATYPICAL LYMPHOCYTE FLAG 0 (0-99); FRAGMENT RBC FLAG 0 (0-99); HEMATOCRIT 38.3 % (40.0-51.0); HEMOGLOBIN 12.4 g/dL (13.7-17.5); LEFT SHIFT FLG 10 (0-99); LIPEMIA HEMOLYSIS FLAG 80 (0-99); MEAN CELL HEMOGLOBIN 27.2 pg (27.9-34.1); MEAN CELL HEMOGLOBIN CONCENTR. 32.4 g/dL (32.4-36.7); MEAN PLATELET VOLUME 10.2 fL (8.7-11.7); PLATELET CLUMPS FLAG 0 (0-99); PLATELET COUNT 236 10^3/uL (150-400); RED BLOOD CELL COUNT 4.56 10^6/uL (4.40-6.38); RED CELL DISTRIBUTION WIDTH 14.5 % (11.5-15.2)
[2016-07-04] MEDS: LEVOTHYROXINE 125 MCG TAB PO SCH (05:41)
[2016-07-04 05:50] LABS: ANION GAP 12 mEq/L (8-16); CALCIUM 7.9 mg/dL (8.5-10.4); CARBON DIOXIDE 20 mEq/l (22-31); CHLORIDE 110 mEq/L (97-110); CREATININE 4.8 mg/dL (0.7-1.3); GLOMERULAR FILTRATION RATE 12; GLUCOSE 46 mg/dL (70-100); POTASSIUM 4.2 mEq/L (3.5-5.2); SODIUM 142 mEq/L (134-144)
[2016-07-04 06:02] LABS: TROPONIN I 0.039 ng/mL (0-0.034)
[2016-07-04] MEDS: INSULIN DETEMIR 75 UNIT SQ SCH (08:22)
[2016-07-04] MEDS: METOPROLOL TARTRATE 25 MG TAB PO SCH ×2 (08:23→20:52)
[2016-07-04] MEDS: LANSOPRAZOLE SUSP 3 MG/ML UDSYR (Peds) PO SCH (08:23)
[2016-07-04] MEDS: RIVAROXABAN 15 MG TAB PO SCH (08:24)
[2016-07-04] MEDS: ASPIRIN EC 81 MG TAB PO SCH (08:24)
[2016-07-04] MEDS: GABAPENTIN 100 MG CAP PO SCH ×3 (08:24→20:51)
[2016-07-04] MEDS: FENOFIBRATE 145 MG TAB PO SCH (08:24)
[2016-07-04] MEDS ORDERED: ceFAZolin 2 GM/DEXTROSE 100 ML IV SCH (09:30)
[2016-07-04] MEDS: INSULIN REGULAR HUMAN 100 UNIT/ML SC SCH ×4 (09:36→20:55)
[2016-07-04] MEDS ORDERED: ceFAZolin 2 GM in D5W 100 ML IV SCH (10:00)
--- NOTE | 2016-07-04 10:33 | GCON ---
[f rep st] CONSULTATION REFERRING PHYSICIAN: Abdon Le MD REASON FOR CONSULTATION: Acute kidney injury. HISTORY OF PRESENT ILLNESS: The patient is a 61-year-old male with a history of insulin-dependent di abetes mellitus that has been poorly controlled, with peripheral neuropathy and nephropathy. He has a prior history of acute kidney injury related to a left foot infection in 2007, necessitating tempor jared hemodialysis. He recovered, and his baseline kidney function has been stable with a creatinine a round 1.5 to 1.6. He thinks he has mild proteinuria. He is followed by a doctor at the [facility]. He has been under care for a right plantar foot ulcer. On Saturday, he developed fevers, chills, and a bout of severe diarrhea. He came to the hospital later that night, whereupon he was st arted on antibiotics for a right calf cellulitis. He did have some initial drop in his blood pressur e down to the 90s systolic. He has not received any IV contrast dye or nephrotoxic medications, othe r than vancomycin at appropriate doses. He denies any use of NSAIDs at home. He has a history of BPH, with incomplete emptying, that has bee n stable for years. He has not noted any tea-colored urine. He felt fine prior to this episode on . He was treated with a course of Augmentin a couple of months ago. His blood sugars have been reasonably well controlled. His home blood pressures typically run in the 90s to 130s, per his josé miguel llection. He has felt better since receiving antibiotics. He has continued to spike fevers through last night, although his fever curve is improving. He has maintained urine output. He has no other major complaints. He denies rashes, joint pains. PAST MEDICAL HISTORY: See HPI. Hypertension; pulmonary embolism; history of cardiac thrombus, per p atient; prior kidney injury related to a left foot infection and amputation in 2007 at [facility], requiring temporary hemodialysis; prior right leg DVT; chronic lower extremity wounds; coronary artery disease, status post stenting; atrial fibrillation, status post ablation x2, on Xarel to; abnormal stress test, March 2016. PAST SURGICAL HISTORY: Numerous foot surgeries, as above. FAMILY HISTORY: Notable for a grandmother with stomach cancer. No kidney disease. He has some firs t-degree relatives with sarcoid and diabetes. SOCIAL HISTORY: He has never been a smoker. He does not use alcohol or drugs. HOME MEDICATIONS: Did include losartan, which has been held. CURRENT MEDICATIONS: Ancef 2 g IV q.12 hours, Bentyl, Cymbalta, TriCor, gabapentin, Prevacid, Synthr oid, Lopressor 12.5 mg b.i.d., Xarelto, saline at 150 cc per hour. REVIEW OF SYSTEMS: See HPI. He does complain of some mildly increased dyspnea. His oxygen requirem ent has increased to 4 L since admission. Otherwise, 10-system review negative in detail. PHYSICAL EXAMINATION: VITAL SIGNS: 110/71, heart rate is 57, respirations 14, satting 100% on 4 L n patricio cannula, 35.3 Celsius. GENERAL: Obese, comfortable, pleasant male, sitting at bedsid e, in no acute distress. Skin tone appears healthy, not pale or sallow. HEENT: Eyes without sclera l icterus. Oral mucosa is moist. NECK: Obese and soft, without lymphadenopathy. HEART: Regular r ate and rhythm, without murmurs, gallops, or rubs. LUNGS: Clear to auscultation bilaterally. ABDOM EN: Obese, soft, and nontender. GENITOURINARY: There is no Rivas in place. LOWER EXTREMITIES: Wi thout any pitting edema. He has some mild erythema on his right calf. It is not well demarcated and is not warm. His right foot is bandaged. MUSCULOSKELETAL: There are Charcot deformities apparent in his left foot, but all toes are intact. EXTREMITIES: Dorsalis pedis pulse on the left is not pal pable. His foot is slightly cool, but not dusky or cyanotic. Hands are warm and well perfused. SKI N: Normal turgor, no rashes. LABORATORY DATA: Sodium is 142, potassium 4.2, CO2 20, BUN 43, creatinine 4.8, calcium 7.9, troponin 0.039, white count 11.7, down from 18. Hemoglobin is 12.4, platelets 236. Influenza swab was negat dominguez. Vancomycin trough yesterday 10.7. Urinalysis showed 1+ protein, 2+ blood, 5-10 red cells, yest erday, sodium of 25, creatinine of 68. Chest x-ray yesterday, which I personally reviewed, showed some increased interstitial lung markings. IMPRESSION/PLAN: 1. Acute kidney injury. He has some hematuria and proteinuria with underlying diabetic nephropathy. His clinical course is suggestive of ischemic acute tubular necrosis versus infection-related glome rulonephritis. It is unlikely with his normal vancomycin trough that he had toxicity from that drug, and it is too early for interstitial nephritis reaction. I will check an ultrasound to rule out an obstructive process. We will try to obtain urine for microscopy. We discussed that he could possibl y require temporary dialysis, although I am hopeful we can avoid this. His urine sodium was low, but he appears fluid resuscitated and developed probably some pulmonary edema. I will stop his normal s sho. I will discontinue his TriCor. His Ancef will likely need to be reduced based on his renal f unction. I would use a gram every 12 hours. I note that Zosyn was discontinued today. I also note that he was likely experiencing some volume depletion from diarrhea on admission. This is in the set ting of infection and ARB, increases likelihood that this is acute tubular necrosis. I will also dis continue his TriCor. I will check C3 and C4 level to look for an infection-related glomerulonephriti s given his apparent active urine sediment. 2. Right leg cellulitis. I do not see any imaging to look for osteomyelitis. This may be warranted . I will defer to Infectious Disease. Blood cultures are negative thus far. Final results pending. 3. Diarrhea. This appears to be improving. 4. Diabetes mellitus, insulin dependent. Insulin management per primary service. 5. Hypertension. His losartan has been appropriately held. /[id number]/MODL
--- NOTE | 2016-07-04 10:47 | HOSPPROG ---
Hospitalist Progress Note Assessment/Plan: ASSESSMENT/PLAN: # sepsis due to lower extremity cellulitis - ancef per ID # LE wounds - wound care per Dr Degroot # HARSHIL on CKD, likely d/t ATN/sepsis - w/u per renal, renal US # herpes labialis - will touch base with renal regarding Valtrex # interstitial predominance on CXR # vol overload - hold lasix for now # p-aFib a/p ablationx2 - Xarelto # DM2 - hypoglycemia this am - decr levemir # htn - hold atenolol, cont metop # CAD - asa, metop # FCFT SUBJECTIVE: Feels as though he has a cold sore coming OBJECTIVE: Vitals reviewed Comfortable, no acute distress Regular rate and rhythm, no murmurs rubs or gallops No respiratory distress, lungs clear to auscultation bilaterally; no wheezes rales or rhonchi Abdomen with normal bowel sounds, soft, nontender, nondistended Right foot wrapped in gauze with blood showing through; erythema to mid whitaker LABORATORY DATA: Creatinine 4.8 IMAGING: Chest x-ray personally reviewed: Interstitial prominence MICROBIOLOGY: BCx no growth today Objective: Vital Signs Temp Pulse Resp BP Pulse Ox 35.3 C L 57 L 14 110/71 100 07/04/16 07:03 07/04/16 07:03 07/04/16 07:03 07/04/16 07:03 07/04/16 07:03 Microbiology 07/03/16 17:30 Gastrointestinal Tract Panel (PCR) - Final Stool No Organisms Detected Laboratory Results 07/04/16 05:25 07/04/16 05:25 07/03/16 07/04/16 07/05/16 05:59 05:59 05:59 Intake Total 1800 1370 Output Total 750 1790 175 Balance 1050 -420 -175 ICD10 Worksheet Patient Problems: Problems Problem Status Diagnosed Chronic kidney disease stage 3 Acute Chronic renal insufficiency Acute Diabetic foot ulcer Acute Sepsis affecting skin Acute CAD - Coronary arteriosclerosis Active Diabetic neuropathy Active History of - deep vein thrombosis Active Insulin-treated wqf-oqzwvbj-uuxlvafjt diabetes mellitus Active 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
--- NOTE | 2016-07-04 10:48 | PCMIDPN ---
Assessment/Plan: Assessment/Plan: * Sepsis likely due to right lower extremity cellulitis/skin and soft tissue infection associated with chronic plantar wound: Fever improved and white blood cell count decreasing. Clinical exam also improved. Blood cultures remain negative. Will transition antibiotics to cefazolin 2 g IV q.12 hours. Prior history of MRSA in the past but has responded to Augmentin well subsequently. * Diarrhea: GI pathogen PCR panel negative. * Acute on chronic renal failure: Continued worsening of renal function. Nephrology consult today. 07/04/16 10:12 07/04/16 10:48 Subjective: Patient complains of decreased urine output and water in my lungs. 2 episodes of diarrhea this a.m. Objective: Vital Signs Temp Pulse Resp BP Pulse Ox 35.3 C L 57 L 14 110/71 100 07/04/16 07:03 07/04/16 07:03 07/04/16 07:03 07/04/16 07:03 07/04/16 07:03 Microbiology 07/03/16 17:30 Gastrointestinal Tract Panel (PCR) - Final Stool No Organisms Detected Laboratory Results 07/04/16 05:25 07/04/16 05:25 07/03/16 07/04/16 07/05/16 05:59 05:59 05:59 Intake Total 1800 1370 Output Total 750 1790 175 Balance 1050 -420 -175 Zosyn # 3 Status post vancomycin x1 Blood cultures x2 no growth GI pathogen PCR panel negative Chest x-ray with bilateral interstitial edema - Physical Exam General Appearance: alert, no apparent distress EENT: pharynx normal, No scleral icterus Respiratory: lungs clear, No respiratory distress Cardiac/Chest: regular rate, rhythm, No systolic murmur Extremities: inflammation (Erythema and tenderness over right lower leg has decreased significantly; plantar wound is stable without active inflammatory changes) Abdomen: non-tender, No distended ICD10 Worksheet Patient Problems: Problems Problem Status Diagnosed Chronic kidney disease stage 3 Acute Chronic renal insufficiency Acute Diabetic foot ulcer Acute Sepsis affecting skin Acute CAD - Coronary arteriosclerosis Active Diabetic neuropathy Active History of - deep vein thrombosis Active Insulin-treated tun-gieuono-uvspkxbei diabetes mellitus Active 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
--- NOTE | 2016-07-04 11:36 | US ---
Ultrasound Abdomen Retroperitoneum, Complete Clinical Indications: Acute renal failure. Comparison: None. Findings: The right kidney measures 13 x 6.2 x 6 cm. The left kidney measures 13.7 x 7.4 x 5.5 cm. Both kidneys demonstrate no hydronephrosis, definite shadowing calculi, or perinephric fluid. Right renal cortical thickness 1.8 cm and left renal cortical thickness 1.8 cm. Slightly lobulated left dany al contour. Images of the bladder demonstrate patent bilateral ureteral jets with color flow imaging. Prevoid keith dder volume 528 mL. Postvoid bladder residual is 190 mL. No shadowing bladder calculi. Impression: 1. No hydronephrosis. 2. Post void bladder residual 190 mL.
--- NOTE | 2016-07-04 12:25 | SOAPPROG ---
SOAP Progress Note Assessment/Plan: Assessment: 61-year-old man well known to the our service for chronic diabetic foot wound of his right plantar foot, admitted for cellulitis of RLE, wound likely source of infection Placed amniofill in base of the wound followed by hydrofera blue ready sutured in place We will change dressing x 1 week Appreciate hospitalists and ID Seen with Dr. Degroot S: feeling well. no complaints. tolerated procedure well O: sitting upright in bed, NAD, brother at bedside R plantar wound clean and dry. Sharply debrided (non-excisional) to reveal healthy granulation tissue. Amniofill applied and HFB ready sutured into place. foot then wrapped with kerlix. RLE cellulitis improved 07/06/16 17:09 Objective: Vital Signs Temp Pulse Resp BP Pulse Ox 36.4 C 64 13 144/90 H 98 07/04/16 11:24 07/04/16 11:24 07/04/16 11:24 07/04/16 11:24 07/04/16 11:24 Microbiology 07/03/16 17:30 Gastrointestinal Tract Panel (PCR) - Final Stool No Organisms Detected Laboratory Results 07/04/16 05:25 07/04/16 05:25 07/03/16 07/04/16 07/05/16 05:59 05:59 05:59 Intake Total 1800 1370 Output Total 750 1790 525 Balance 1050 -420 -525 ICD10 Worksheet Patient Problems: Problems Problem Status Diagnosed Chronic kidney disease stage 3 Acute Chronic renal insufficiency Acute Diabetic foot ulcer Acute Sepsis affecting skin Acute CAD - Coronary arteriosclerosis Active Diabetic neuropathy Active History of - deep vein thrombosis Active Insulin-treated ukl-qshswan-wdnxnequj diabetes mellitus Active 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
[2016-07-04] MEDS ORDERED: valACYclovir 500 MG TAB PO ONE (13:05)
--- NOTE | 2016-07-04 14:53 | GPN ---
[f rep st] PROCEDURE NOTE DATE OF PROCEDURE: 07/04/2016 ANESTHESIA: None. PREOPERATIVE DIAGNOSIS: Diabetic foot ulcer, plantar surface right foot. POSTOPERATIVE DIAGNOSIS: Diabetic foot ulcer, plantar surface right foot. PROCEDURE PERFORMED: Debridement skin, soft tissue, including the subcutaneous tissue, and applicati on of tissue-derived skin substitute. FINDINGS: Wound measures 5.5 x 3 x 1.5. AmnioFill 250 mg [id number], expiration February 01, 2021. INDICATIONS: The patient is a 61-year-old, well-known to me with a diabetic foot ulcer on the planta r surface of his foot. At the end of May, his hemoglobin A1c was 10. He has been working on be tter control of his glucose and at this admission, it is 8.9. He has a proper shoe for offloading. He was admitted for cellulitis. The cellulitis has improved. DESCRIPTION OF PROCEDURE: The patient was at bedside. I debrided the wound sharply to healthy granu lation tissue. I placed AmnioFill 250 mg and then placed Hydrofera Blue, which I sewed into the oni om of the wound with 2-0 nylon. I placed an ABD and wrapped his foot. He tolerated the procedure we ll. I will next change the dressing in 1 week. /[id number]/MODL
--- NOTE | 2016-07-04 16:34 | ECHO ---
[id number] + + [address] : : [place] [address] : : [phone] + + Adult Echocardiographic Report + --------+ :Name: ORTIZ MCKEON CStudy Date: 07/04/2016 08:42 AM BP: 110/71 mm Hg : : Hospital Admission Number: [id number] Locat ion: 371: :: 1955 Gender: Male Height: 72 in : :Age: 61 yrs Race: WH Weight: 279 l b : :Reason For Study: HF sysmptoms : : BSA: 2.5 mete rs2 : :History: pulmonary edema : + --------+ MMode/2D Measurements & Calculations IVSd: 1.3 cm RVDd: 2.9 cm FS: 30.4 % LA dimension: LVPWd: 1.4 cm LVIDd: 4.6 cm EDV(Teich): 98.3 ml4.7 cm LVIDs: 3.2 cm ESV(Teich): 41.5 ml EF(Teich): 57.8 % LVOT diam: 2.1 cmLVLd ap4: 9.1 cm SV(MOD-sp4): LVOT area: EDV(MOD-sp4): 87.0 ml 3.5 cm2 150.0 ml LVLs ap4: 7.7 cm ESV(MOD-sp4): 63.0 ml EF(MOD-sp4): 58.0 % Normal Measurement Values: + + :LVIDd (3.5-5.7cm) IVSd (0.6-1.1cm) LVPWd (0.6-1.1cm) Aortic Root (2.0-3.7cm)Left Atrium (1.5-4.0cm): :LV Vol(d) (76-115ml) LV Vol(s) (29-48ml) Ejec Fraction (50-65%)PV Calin (0.6- 1.2m/s) TV Calin (0.4-1.0m/s) : :MV E Calin (0.8-1.0m/s)MV A Calin (0.3-1.0m/s)LVOT Calin (0.7-1.2m/s) Asc Ao Calin ( 0.9-1.8m/s) : + + Doppler Measurements & Calculations MV E max calin: Ao V2 max: AI max calin: LV V1 max: 107.6 cm/sec 116.7 cm/sec 287.8 cm/sec 83.3 cm/sec MV A max calin: Ao max PG: AI max P.1 mmHg LV V1 max P.9 cm/sec 5.5 mmHg AI dec slope: 2.8 mmHg MV E/A: 1.3 THOMAS(V,D): 2.5 cm2 132.4 cm/sec2 MV dec time: AI P1/2t: 636.7 msec 0.19 sec PA V2 max: TR max calin: 80.4 cm/sec 320.3 cm/sec PA max P.6 mmHg TR max P.0 mmHg RAP systole: 10.0 mmHg RVSP(TR): 51.0 mmHg Left Ventricle The left ventricle is normal in size and function. There is mild to moderate concentric left ventricular hypertrophy. There is Doppler evidence for diastolic dysfunction. Ejection Fraction = 55-60%. No regional wall motion abnormalities noted. Right Ventricle The right ventricle is normal in size and function. Atria The left atrium is mildly dilated. The Left Atrial Volume is 34 ml/m2. Right atrial size is normal. A dilated inferior vena cava suggests increased right atrial pressure. Mitral Valve The mitral valve is normal in structure and function. The mitral valve leaflets appear thickened, but open well. There is mild mitral regurgitation. Tricuspid Valve The tricuspid valve is normal in structure and function. There is mild tricuspid regurgitation. Right ventricular systolic pressure is 51mmHg. There is Doppler evidence for moderate pulmonary hypertension. Aortic Valve The aortic valve is trileaflet. There is mild aortic valve calcification. There is no aortic stenosis. Mild to moderate aortic regurgitation. Pulmonic Valve The pulmonic valve is normal in structure and function. Mild pulmonic valvular regurgitation. Great Vessels Borderline aortic root dilatation. Pericardium/Pleural trivial pericardial effusion. Conclusion A two-dimensional transthoracic echocardiogram with M-mode and Doppler was performed. (1) Left ventricular systolic ejection fraction was normal (55-60%) - normal wall motion (2) Mild to moderate concentric left ventricular hypertrophy (3) Diastolic dysfunction was present (4) Normal right ventricular size and function (5) Mild left atrial dilation with normal right atrial dimensions (6) Mild mitral regurgitation with mildly thickened leaflets (7) Trileaflet aortic valve with mild sclerosis, no stenosis, and mild to moderate insufficiency (8) Mild tricuspid regurgitation - RVSP was estimated to be 50-55 mm Hg (9) Poor visualization of the pulmonic valve with mild insufficiency (10) In comparison to prior echocardiogram from 2010, no significant changes noted. Final Reading Physician: Jon Yeh signed on 07/04/2016 04:33 PM Ordering Physician: Chata Doherty Performed By: Leesa Grigsby
[2016-07-04] MEDS ORDERED: IPRATROPIUM/ALBUTEROL 3 ML DEYVIAL ONE (17:09)
[2016-07-04] MEDS: ONDANSETRON 4 MG/2 ML VIAL IVP PRN (17:13)
[2016-07-04] MEDS ORDERED: IPRATROPIUM/ALBUTEROL 3 ML DEYVIAL IH PRN (17:15)
[2016-07-04] MEDS ORDERED: FUROSEMIDE 40 MG/4 ML VIAL IVP ONE (17:15)
[2016-07-04 17:42] LABS: BICARBONATE 19 mEq/L (22-26); MEASURED OXYGEN SATURATION 94 % (92-95); PCO2 32 mmHg (34-38); PO2 74 mmHg (65-75); TCO2 20 mEq/L (23-27)
--- NOTE | 2016-07-04 18:00 | DX ---
AP Upright Portable Chest on July 04, 2016 Reason for examination: Hypoxia; follow up abnormalities from the July 03, 2016 study. Findings: There has been little change in the diffuse interstitial pattern bilaterally, somewhat more pronounced on the right side. The heart size remains borderline prominent allowing for portable tech nique. There is mild pulmonary venous prominence. No definite pleural effusion is visualized. Impression: Persistent diffuse interstitial pattern, congestive heart failure versus diffuse intersti tial pneumonia.
[2016-07-04] MEDS: DULoxetine 30 MG CAP PO SCH (20:51)
[2016-07-04] MEDS: NON-FORMULARY NEW DRUG (Insulin Detemir [Levemir Flextouch] 50 UNIT) SQ SCH (20:55)
[2016-07-04] MEDS ORDERED: INSULIN DETEMIR 65 UNIT SQ SCH (21:00)
[2016-07-05 05:58] LABS: % IMMATURE GRANULYOCYTES 0.4 % (0.0-1.1); ABSOLUTE IMMATURE GRANULOCYTES 0.04 10^3/uL (0.00-0.10); ADD DIFF? NO; ADD MORPH? NO; ADD SCAN? NO; ATYPICAL LYMPHOCYTE FLAG 10 (0-99); FRAGMENT RBC FLAG 0 (0-99); HEMATOCRIT 35.8 % (40.0-51.0); HEMOGLOBIN 11.7 g/dL (13.7-17.5); LEFT SHIFT FLG 0 (0-99); LIPEMIA HEMOLYSIS FLAG 80 (0-99); MEAN CELL HEMOGLOBIN 27.1 pg (27.9-34.1); MEAN CELL HEMOGLOBIN CONCENTR. 32.7 g/dL (32.4-36.7); MEAN CELL VOLUME 82.9 fL (81.5-99.8); MEAN PLATELET VOLUME 10.3 fL (8.7-11.7); PLATELET CLUMPS FLAG 0 (0-99); PLATELET COUNT 251 10^3/uL (150-400); RED BLOOD CELL COUNT 4.32 10^6/uL (4.40-6.38); RED CELL DISTRIBUTION WIDTH 14.4 % (11.5-15.2)
[2016-07-05] MEDS: LEVOTHYROXINE 125 MCG TAB PO SCH (06:12)
[2016-07-05 06:23] LABS: ANION GAP 9 mEq/L (8-16); CALCIUM 7.8 mg/dL (8.5-10.4); CARBON DIOXIDE 21 mEq/l (22-31); CHLORIDE 109 mEq/L (97-110); CREATININE 4.8 mg/dL (0.7-1.3); GLOMERULAR FILTRATION RATE 12; GLUCOSE 107 mg/dL (70-100); POTASSIUM 4.3 mEq/L (3.5-5.2); SODIUM 139 mEq/L (134-144)
[2016-07-05 06:34] LABS: TROPONIN I 0.032 ng/mL (0-0.034)
[2016-07-05] MEDS: METOPROLOL TARTRATE 25 MG TAB PO SCH ×2 (08:37→21:57)
[2016-07-05] MEDS: ASPIRIN EC 81 MG TAB PO SCH (08:37)
[2016-07-05] MEDS: LANSOPRAZOLE SUSP 3 MG/ML UDSYR (Peds) PO SCH (08:37)
[2016-07-05] MEDS: GABAPENTIN 100 MG CAP PO SCH ×3 (08:37→21:58)
[2016-07-05] MEDS: INSULIN REGULAR HUMAN 100 UNIT/ML SC SCH ×4 (08:38→23:12)
[2016-07-05] MEDS: RIVAROXABAN 15 MG TAB PO SCH (08:46)
--- NOTE | 2016-07-05 09:35 | SOAPPROG ---
SOAP Progress Note Assessment/Plan: Assessment: 1. HARSHIL. Most likely ischemic ATN d/t infxn/hypovolemia/ARB. ARB held. BP still variable. IVF held. Starting to make more urine. Creat plateaued. Renal u/s normal. Have not been able to look at urine yet. Seros pending to eval IRGN. No indication for dialysis. 2. RLE cellulitis. Continue renally dosed ancef. Increase dose back to 2 g BID once GFR starts to improve. 3. Diarrhea. Improving. 4. DM. Hypoglycemia. Insulin per primary service. 5. Acidosis. D/t #1/3. Follow. Plan: 07/05/16 09:32 07/05/16 09:35 07/05/16 09:36 Subjective: Had diarrhea last night. However, no chills for > 12 hrs. Feeling better, breathing more comfortably. Had some low BSs over night. Objective: Vital Signs Temp Pulse Resp BP Pulse Ox 36.8 C 77 16 132/81 H 95 07/05/16 07:50 07/05/16 07:50 07/05/16 07:50 07/05/16 07:50 07/05/16 07:50 Laboratory Results 07/05/16 05:33 07/05/16 05:33 07/04/16 07/05/16 07/06/16 05:59 05:59 05:59 Intake Total 1370 1700 Output Total 1790 2300 Balance -420 -600 comfortable wm in bed. RRR, I/ JODIE CTAB Abdom obese, nt 3+ LE pitting edema Mild erythema R calf. Bandage on R foot ICD10 Worksheet Patient Problems: Problems Problem Status Diagnosed Chronic kidney disease stage 3 Acute Chronic renal insufficiency Acute Diabetic foot ulcer Acute Sepsis affecting skin Acute CAD - Coronary arteriosclerosis Active Diabetic neuropathy Active History of - deep vein thrombosis Active Insulin-treated bae-jyfvjzb-jnjaxuyqo diabetes mellitus Active 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
--- NOTE | 2016-07-05 10:03 | SOAPPROG ---
SOAP Progress Note Assessment/Plan: Assessment: Assessment: 61-year-old man well known to the our service for chronic diabetic foot wound of his right plantar foot, admitted for cellulitis of RLE, wound likely source of infection Placed amniofill in base of the wound followed by hydrofera blue ready sutured in place on 07/04. Change abd and kerlix as needed We will change dressing x 1 week at [facility] Appreciate hospitalists and ID S: feeling well. no complaints. tolerated procedure well O: sitting upright in chair, NAD, R staining on abd but not draining very much RLE cellulitis stable Plan: 07/05/16 10:02 Objective: Vital Signs Temp Pulse Resp BP Pulse Ox 36.8 C 77 16 132/81 H 95 07/05/16 07:50 07/05/16 07:50 07/05/16 07:50 07/05/16 07:50 07/05/16 07:50 Laboratory Results 07/05/16 05:33 07/05/16 05:33 07/04/16 07/05/16 07/06/16 05:59 05:59 05:59 Intake Total 1370 1700 Output Total 1790 2300 Balance -420 -600 ICD10 Worksheet Patient Problems: Problems Problem Status Diagnosed Chronic kidney disease stage 3 Acute Chronic renal insufficiency Acute Diabetic foot ulcer Acute Sepsis affecting skin Acute CAD - Coronary arteriosclerosis Active Diabetic neuropathy Active History of - deep vein thrombosis Active Insulin-treated vdu-zvjuatb-azfamuvth diabetes mellitus Active 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
--- NOTE | 2016-07-05 10:04 | PCMIDPN ---
Assessment/Plan: # Sepsis due to right lower extremity cellulitis/skin and soft tissue infection associated with chronic plantar diabetic foot ulcer, s/p debridement by Dr. Mayra Degroot. Patient initially received Zosyn and was stepped down to cefazolin yesterday. General improvement-Faint erythema remains in the stocking distribution, WBC trending down, no fever since 07/02 --continue cefazolin, likely able to step down to p.o. antibiotics to complete therapy. Currently remains hospitalized due to other issues such as resolving acute renal failure. #Diarrhea: GI pathogen PCR panel negative. #Acute on chronic renal failure creatinine plateau today at 4.8 --renal dose antibiotics as below Antibiotic, # 3 Cefazolin 1 g IV Q 12 Microbiology 07/02 blood cultures (2): NGTD Subjective: Patient feels much improved since admission. Rigors have resolved. Energy is better. Denies rash or diarrhea today Decreased swelling right lower extremity Objective: Vital Signs Temp Pulse Resp BP Pulse Ox 36.8 C 77 16 132/81 H 95 07/05/16 07:50 07/05/16 07:50 07/05/16 07:50 07/05/16 07:50 07/05/16 07:50 Laboratory Results 07/05/16 05:33 07/05/16 05:33 07/04/16 07/05/16 07/06/16 05:59 05:59 05:59 Intake Total 1370 1700 Output Total 1790 2300 Balance -420 -600 - Physical Exam General Appearance: alert, no apparent distress EENT: No scleral icterus Respiratory: lungs clear Neck: supple Extremities: swelling (Right lower extremity), erythema (Faint, Stocking distribution right lower extremity including foot. Noted Charcot foot. Ulcer on the sole of his foot covered with hydrofera blue), other (Right lower extremity has mild warmth) Skin: No jaundice, No rash Neuro/Psych: alert, normal mood/affect, oriented x 3 - Time Spent With Patient Time Spent with Patient: greater than 25 minutes (Care was coordinated with Dr. Mayra Degroot, patient was examined with Dr. Degroot as well) Time Spent with Patient: Greater than 25 minutes spent on this patients care, greater than 50% of time spent counseling, educating, and coordinating care regarding the above mentioned plan. ICD10 Worksheet Patient Problems: Problems Problem Status Diagnosed Chronic kidney disease stage 3 Acute Chronic renal insufficiency Acute Diabetic foot ulcer Acute Sepsis affecting skin Acute CAD - Coronary arteriosclerosis Active Diabetic neuropathy Active History of - deep vein thrombosis Active Insulin-treated qgb-mvtprrb-wbptlupro diabetes mellitus Active 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
--- NOTE | 2016-07-05 10:46 | HOSPPROG ---
Hospitalist Progress Note Assessment/Plan: ASSESSMENT/PLAN: # sepsis due to lower extremity cellulitis - ancef per ID # LE wounds - wound care per Dr Degroot; amniofill placed in wound # diarrhea - persistent # HARSHIL on CKD, likely d/t ATN/sepsis: SCr stable today, good uop - w/u per renal # herpes labialis - received one dose of valtrex - should still have therapeutic serum levels # interstitial predominance on CXR - suspect volume # vol overload - hold lasix for now # p-aFib a/p ablation x 2 - Xarelto # DM2 - hypoglycemia this am - hold levemir # htn - hold atenolol, cont metop # CAD - asa, metop # FCFT SUBJECTIVE: ongoing tingling in his lip from possible cold sore ongoing diarrhea OBJECTIVE: Vitals reviewed Comfortable, no acute distress Regular rate and rhythm, no murmurs rubs or gallops No respiratory distress, lungs clear to auscultation bilaterally; no wheezes rales or rhonchi Abdomen with normal bowel sounds, soft, nontender, nondistended Right foot wrapped in gauze with blood showing through; erythema to mid whitaker improved today LABORATORY DATA: Creatinine 4.8, stable IMAGING: mod risk Objective: Vital Signs Temp Pulse Resp BP Pulse Ox 36.8 C 77 16 132/81 H 95 07/05/16 07:50 07/05/16 07:50 07/05/16 07:50 07/05/16 07:50 07/05/16 07:50 Laboratory Results 07/05/16 05:33 07/05/16 05:33 07/04/16 07/05/16 07/06/16 05:59 05:59 05:59 Intake Total 1370 1700 Output Total 1790 2300 Balance -420 -600 ICD10 Worksheet Patient Problems: Problems Problem Status Diagnosed Chronic kidney disease stage 3 Acute Chronic renal insufficiency Acute Diabetic foot ulcer Acute Sepsis affecting skin Acute CAD - Coronary arteriosclerosis Active Diabetic neuropathy Active History of - deep vein thrombosis Active Insulin-treated ayc-xjdqgvc-zupsyqrzb diabetes mellitus Active 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
[2016-07-05] MEDS: NON-FORMULARY NEW DRUG (Insulin Detemir [Levemir Flextouch] 50 UNIT) SQ SCH (10:51)
[2016-07-05 11:35] LABS: BACTERIA TRACE /hpf (NONE SEEN); MUCUS TRACE /lpf (NONE-1+)
[2016-07-05 12:29] LABS: ALBUMIN 2.5 g/dL (3.5-5.0); BILIRUBIN,TOTAL 0.4 mg/dL (0.1-1.4); BILIRUBIN-CONJUGATED 0.3 mg/dL (0.0-0.5); BILIRUBIN-UNCONJUGATED 0.1 mg/dL (0.0-1.1); TOTAL PROTEIN 5.8 g/dL (6.3-8.2)
[2016-07-05] MEDS: DULoxetine 30 MG CAP PO SCH (21:57)
[2016-07-06 05:11] LABS: % IMMATURE GRANULYOCYTES 0.7 % (0.0-1.1); ABSOLUTE IMMATURE GRANULOCYTES 0.06 10^3/uL (0.00-0.10); ADD DIFF? NO; ADD MORPH? NO; ADD SCAN? NO; ATYPICAL LYMPHOCYTE FLAG 30 (0-99); FRAGMENT RBC FLAG 0 (0-99); HEMATOCRIT 32.5 % (40.0-51.0); HEMOGLOBIN 10.6 g/dL (13.7-17.5); LEFT SHIFT FLG 0 (0-99); LIPEMIA HEMOLYSIS FLAG 80 (0-99); MEAN CELL HEMOGLOBIN CONCENTR. 32.6 g/dL (32.4-36.7); MEAN CELL VOLUME 82.9 fL (81.5-99.8); MEAN PLATELET VOLUME 10.2 fL (8.7-11.7); PLATELET CLUMPS FLAG 0 (0-99); PLATELET COUNT 260 10^3/uL (150-400); RED BLOOD CELL COUNT 3.92 10^6/uL (4.40-6.38); RED CELL DISTRIBUTION WIDTH 14.6 % (11.5-15.2)
[2016-07-06 05:27] LABS: ALBUMIN 2.2 g/dL (3.5-5.0); ANION GAP 7 mEq/L (8-16); CALCIUM 7.7 mg/dL (8.5-10.4); CARBON DIOXIDE 23 mEq/l (22-31); CHLORIDE 110 mEq/L (97-110); CREATININE 4.4 mg/dL (0.7-1.3); GLOMERULAR FILTRATION RATE 14; GLUCOSE 91 mg/dL (70-100); POTASSIUM 4.7 mEq/L (3.5-5.2); SODIUM 140 mEq/L (134-144)
[2016-07-06] MEDS: LEVOTHYROXINE 125 MCG TAB PO SCH (05:41)
[2016-07-06] MEDS: LANSOPRAZOLE SUSP 3 MG/ML UDSYR (Peds) PO SCH (09:09)
[2016-07-06] MEDS: RIVAROXABAN 15 MG TAB PO SCH (09:10)
[2016-07-06] MEDS: METOPROLOL TARTRATE 25 MG TAB PO SCH ×2 (09:10→20:36)
[2016-07-06] MEDS: GABAPENTIN 100 MG CAP PO SCH ×3 (09:10→20:36)
[2016-07-06] MEDS: ASPIRIN EC 81 MG TAB PO SCH (09:10)
--- NOTE | 2016-07-06 09:53 | HOSPPROG ---
Hospitalist Progress Note Assessment/Plan: ASSESSMENT/PLAN: # sepsis due to lower extremity cellulitis - ancef per ID # LE wounds - wound care per Dr Degroot; amniofill placed in wound # diarrhea - persistent # HARSHIL on CKD (baseline about 1.6), likely d/t ATN/sepsis: Making good urine, creatinine slightly improved - w/u per renal, complements pending, does not need HD # anemia: Slow down trend, follow tomorrow # herpes labialis - received one dose of valtrex - should still have therapeutic serum levels based on renal fxn # interstitial predominance on CXR - suspect volume - recheck chest x-ray tomorrow - on room air today # vol overload - hold lasix for now # p-aFib a/p ablation x 2 - Xarelto # DM2 - hypoglycemia this am - no insulin, will need to restart when renal fxn improves # htn - hold atenolol, cont metop # CAD - asa, metop # FCFT SUBJECTIVE: Making good urine; no nausea vomiting, no diarrhea for at least 12 hours OBJECTIVE: Vitals reviewed Comfortable, no acute distress Regular rate and rhythm, no murmurs rubs or gallops No respiratory distress, lungs clear to auscultation bilaterally; no wheezes rales or rhonchi Abdomen with normal bowel sounds, soft, nontender, nondistended Right foot wrapped in gauze; significant improvement in erythema, the mid whitaker but not very red LABORATORY DATA: Creatinine 4.4, improved mod risk Objective: Vital Signs Temp Pulse Resp BP Pulse Ox 36.5 C 69 18 148/91 H 91 L 07/06/16 07:22 07/06/16 07:22 07/06/16 07:22 07/06/16 07:22 07/06/16 07:22 Laboratory Results 07/06/16 05:02 07/06/16 05:02 07/05/16 07/06/16 07/07/16 05:59 05:59 05:59 Intake Total 1700 660 450 Output Total 2300 1300 550 Balance -600 -640 -100 ICD10 Worksheet Patient Problems: Problems Problem Status Diagnosed Chronic kidney disease stage 3 Acute Chronic renal insufficiency Acute Diabetic foot ulcer Acute Sepsis affecting skin Acute CAD - Coronary arteriosclerosis Active Diabetic neuropathy Active History of - deep vein thrombosis Active Insulin-treated fhm-kggglbq-aimpwcwie diabetes mellitus Active 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
--- NOTE | 2016-07-06 10:21 | SOAPPROG ---
SOAP Progress Note Assessment/Plan: Assessment: 61-year-old man well known to the our service for chronic diabetic foot wound of his right plantar foot, admitted for cellulitis of RLE, wound likely source of infection 07/04/16 - Placed amniofill in base of the wound followed by hydrofera blue ready sutured in place We will change dressing x 1 week at outpatient wound healing center - he already has appointment Appreciate hospitalists and ID Seen with Dr. Degroot. Please call over the weekend with questions S: feeling well. no complaints. O: laying in bed, NAD R plantar wound dressing intact. No surrounding erythema, tenderness or drainage. RLE cellulitis improved Objective: Vital Signs Temp Pulse Resp BP Pulse Ox 36.5 C 69 18 148/91 H 91 L 07/06/16 07:22 07/06/16 07:22 07/06/16 07:22 07/06/16 07:22 07/06/16 07:22 Laboratory Results 07/06/16 05:02 07/06/16 05:02 07/05/16 07/06/16 07/07/16 05:59 05:59 05:59 Intake Total 1700 660 450 Output Total 2300 1300 550 Balance -600 -640 -100 ICD10 Worksheet Patient Problems: Problems Problem Status Diagnosed Chronic kidney disease stage 3 Acute Chronic renal insufficiency Acute Diabetic foot ulcer Acute Sepsis affecting skin Acute CAD - Coronary arteriosclerosis Active Diabetic neuropathy Active History of - deep vein thrombosis Active Insulin-treated gpc-amagawz-kkosgfgfo diabetes mellitus Active 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
--- NOTE | 2016-07-06 12:29 | SOAPPROG ---
SOAP Progress Note Assessment/Plan: Assessment: 1.Non-oliguric HARSHIL. Most likely ischemic ATN d/t infxn/hypovolemia/ARB. -urine sediment consistent with ATN -Renal u/s normal. -Seros pending to eval IRGN. _cr improved to 4.4 today, good UOP -encourage po fluid intake (I reviewed with him)- no need for IVF -follow lytes as at risk for post-ATN diuresis 2. RLE cellulitis. Continue renally dosed ancef. Increase dose back to 2 g BID once GFR starts to improve. 3. Diarrhea. much better 4. DM2- nsulin per primary service. 5. Acidosis- HARSHIL and diarrhea related -better (bicarb 23 today), continue to follow Shila Mackay MD [facility] [phone] 07/06/16 13:55 Subjective: Had some SOB yesterday- much better today, on RA. UOP 1300 cc, Cr improved to 4.4 today. Diarrhea better. Still some nausea but taking in po ok. Thinks leg is better. Objective: Vital Signs Temp Pulse Resp BP Pulse Ox 36.5 C 69 18 148/91 H 91 L 07/06/16 07:22 07/06/16 07:22 07/06/16 07:22 07/06/16 07:22 07/06/16 07:22 Laboratory Results 07/06/16 05:02 07/06/16 05:02 07/05/16 07/06/16 07/07/16 05:59 05:59 05:59 Intake Total 1700 660 450 Output Total 2300 1300 550 Balance -600 -640 -100 Physical Exam - Physical Exam General Appearance: alert, no apparent distress, other (on RA, not tachypneic) EENT: other (mmm, no scleral icterus) Neck: supple Respiratory: lungs clear Cardiac/Chest: regular rate, rhythm, other (no rub) Abdomen: normal bowel sounds, non-tender, soft Skin: warm/dry Extremities: other (+edema LE, erythema within marked margin on R leg, wound dressed) Neuro/Psych: alert, normal mood/affect, oriented x 3 ICD10 Worksheet Patient Problems: Problems Problem Status Diagnosed Chronic kidney disease stage 3 Acute Chronic renal insufficiency Acute Diabetic foot ulcer Acute Sepsis affecting skin Acute CAD - Coronary arteriosclerosis Active Diabetic neuropathy Active History of - deep vein thrombosis Active Insulin-treated fva-iizjcnn-odyqaxefs diabetes mellitus Active 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
--- NOTE | 2016-07-06 13:12 | CPEKG ---
Heart Rate: 97 RR Interval: 619 P-R Interval: 176 QRSD Interval: 90 QT Interval: 352 QTC Interval: 447 P [place]: 50 QRS [place]: -53 T Wave [place]: 75 EKG Severity - ABNORMAL ECG - EKG Impression: SINUS RHYTHM EKG Impression: LEFT ANTERIOR FASCICULAR BLOCK Electronically Signed By: Toshia Gallegos 06-Jul-2016 17:10:26
--- NOTE | 2016-07-06 17:02 | PCMIDPN ---
Assessment/Plan: Assessment: Right lower extremity cellulitis associated with a chronic right plantar foot diabetic ulcer. Patient is significantly improved both clinically and by examination on cefazolin. Plan to continue this course until he is well enough to discharge. The barrier to discharge is his acute renal failure. His creatinine has started to improve from yesterday to today. Likely will need a few more days before discharge is imminent. Plan: 1. Continue cefazolin. Adjust as renal function improves. 2. Follow appearance of right lower extremity inflammation. 3. Plan switch to oral antibiotics upon discharge. 07/06/16 18:14 Subjective: Patient is resting comfortably in his hospital chair. No significant complaints. States that he feels much better. Notes the swelling and redness of the right lower extremity is decreased. Objective: Cefazolin # 4 Vital Signs Temp Pulse Resp BP Pulse Ox 37.1 C 72 20 148/90 H 94 07/06/16 15:42 07/06/16 15:42 07/06/16 15:42 07/06/16 15:42 07/06/16 15:42 Laboratory Results 07/06/16 05:02 07/06/16 05:02 07/05/16 07/06/16 07/07/16 05:59 05:59 05:59 Intake Total 1700 660 800 Output Total 2300 1300 1400 Balance -600 -640 -600 - Physical Exam General Appearance: WD/WN, alert, no apparent distress Cardiac/Chest: regular rate, rhythm, No tachycardia Extremities: non-tender, No normal inspection (Right foot wrapped and dressed. No proximal erythema.) ICD10 Worksheet Patient Problems: Problems Problem Status Diagnosed Chronic kidney disease stage 3 Acute Chronic renal insufficiency Acute Diabetic foot ulcer Acute Sepsis affecting skin Acute CAD - Coronary arteriosclerosis Active Diabetic neuropathy Active History of - deep vein thrombosis Active Insulin-treated uwc-yuunsfx-gwjcanuqb diabetes mellitus Active 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
[2016-07-06 17:57] LABS: C3 COMPLEMENT COMPONENT 138 mg/dL (75 - 175); C4 COMPLEMENT COMPONENT 30 mg/dL (14 - 40)
[2016-07-06] MEDS: DULoxetine 30 MG CAP PO SCH (20:36)
[2016-07-07 05:14] LABS: % IMMATURE GRANULYOCYTES 0.6 % (0.0-1.1); ABSOLUTE IMMATURE GRANULOCYTES 0.05 10^3/uL (0.00-0.10); ABSOLUTE NRBC COUNT 0.02 10^3/uL (0-0.01); ADD DIFF? NO; ADD MORPH? NO; ADD SCAN? NO; ATYPICAL LYMPHOCYTE FLAG 60 (0-99); FRAGMENT RBC FLAG 0 (0-99); HEMATOCRIT 32.9 % (40.0-51.0); HEMOGLOBIN 10.6 g/dL (13.7-17.5); LEFT SHIFT FLG 0 (0-99); LIPEMIA HEMOLYSIS FLAG 80 (0-99); MEAN CELL HEMOGLOBIN 26.6 pg (27.9-34.1); MEAN CELL HEMOGLOBIN CONCENTR. 32.2 g/dL (32.4-36.7); MEAN CELL VOLUME 82.5 fL (81.5-99.8); MEAN PLATELET VOLUME 10.6 fL (8.7-11.7); NRBC-AUTO% 0.2 % (0.0-0.2); PLATELET CLUMPS FLAG 10 (0-99); PLATELET COUNT 291 10^3/uL (150-400); RED BLOOD CELL COUNT 3.99 10^6/uL (4.40-6.38); RED CELL DISTRIBUTION WIDTH 14.4 % (11.5-15.2)
[2016-07-07 05:24] LABS: ALBUMIN 2.3 g/dL (3.5-5.0); ANION GAP 4 mEq/L (8-16); CALCIUM 8.3 mg/dL (8.5-10.4); CARBON DIOXIDE 26 mEq/l (22-31); CHLORIDE 110 mEq/L (97-110); CREATININE 3.9 mg/dL (0.7-1.3); GLOMERULAR FILTRATION RATE 16; GLUCOSE 144 mg/dL (70-100); POTASSIUM 4.9 mEq/L (3.5-5.2); SODIUM 140 mEq/L (134-144)
[2016-07-07] MEDS: LEVOTHYROXINE 125 MCG TAB PO SCH (06:26)
--- NOTE | 2016-07-07 08:03 | DX ---
Portable Chest 621 a.m. History: Hypoxia Comparison: July 04 Findings: The heart is enlarged. The pulmonary vascularity remains plethoric however pulmonary edema pattern is improving particularly in the left lung. Costophrenic gutters remain sharp. Impression: Improving CHF
[2016-07-07] MEDS: RIVAROXABAN 15 MG TAB PO SCH (09:54)
[2016-07-07] MEDS: METOPROLOL TARTRATE 25 MG TAB PO SCH ×2 (09:54→21:00)
[2016-07-07] MEDS: ASPIRIN EC 81 MG TAB PO SCH (09:55)
[2016-07-07] MEDS: LANSOPRAZOLE SUSP 3 MG/ML UDSYR (Peds) PO SCH (09:55)
[2016-07-07] MEDS: GABAPENTIN 100 MG CAP PO SCH ×3 (09:56→21:00)
--- NOTE | 2016-07-07 11:15 | HOSPPROG ---
Hospitalist Progress Note Assessment/Plan: 61-year-old with diabetes and chronic lower extremity wound is admitted with cellulitis and sepsis. # lower extremity cellulitis complicated by sepsis. Followed at the wound clinic and Dr. English. Appreciate ID follow up, currently on Ancef * Antibiotic and length of therapy per ID * Wound care per Dr. Duarte, amniofill in place # acute on chronic kidney failure. Baseline creatinine about 1.6. Acute kidney failure likely secondary to ATN. Patient having good urine output with slight improvement in creatinine. Appreciate renal input. * Continue to monitor renal function * Does not need IV fluids as patient taking good p.o. intake # diabetes, labile blood sugars. Will continue to monitor and adjust insulin appropriately # paroxysmal atrial fibrillation currently on Xarelto. Status post ablation # hypertension # CAD # diarrhea # anemia, continue to follow # HSV status post Valtrex. # abnormal chest x-ray. Follow oxygenation. Subjective: Patient new to me, chart reviewed. Patient without any specific complaints this morning. No chest pains no shortness of breath. No rash. Denies significant diarrhea this morning. Objective: Vital Signs Temp Pulse Resp BP Pulse Ox 36.9 C 65 12 151/82 H 90 L 07/07/16 11:05 07/07/16 11:05 07/07/16 11:05 07/07/16 11:05 07/07/16 11:05 Laboratory Results 07/07/16 04:35 07/07/16 04:35 07/06/16 07/07/16 07/08/16 05:59 05:59 05:59 Intake Total 660 1500 Output Total 1300 2700 Balance -640 -1200 - Physical Exam Constitutional: no apparent distress, obese Eyes: PERRL, anicteric sclera, EOMI Ears, Nose, Mouth, Throat: moist mucous membranes, hearing normal Cardiovascular: regular rate and rhythym, no murmur, rub, or gallop, systolic murmur Respiratory: no respiratory distress, no rales or rhonchi, clear to auscultation Gastrointestinal: normoactive bowel sounds, soft, non-tender abdomen, no palpable masses Genitourinary: no bladder fullness Skin: warm, normal color Musculoskeletal: no joint effusions, other (Right lower extremity not examined.) Neurologic: AAOx3, No sensation intact bilaterally (Peripheral neuropathy), No facial droop Psychiatric: interacting appropriately, not anxious ICD10 Worksheet Patient Problems: Problems Problem Status Diagnosed Chronic kidney disease stage 3 Acute Chronic renal insufficiency Acute Diabetic foot ulcer Acute Sepsis affecting skin Acute CAD - Coronary arteriosclerosis Active Diabetic neuropathy Active History of - deep vein thrombosis Active Insulin-treated dhz-uvhvcoz-pewrxfztf diabetes mellitus Active 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
--- NOTE | 2016-07-07 13:59 | PCMIDPN ---
Assessment/Plan: Assessment: Right lower extremity cellulitis associated with a chronic right plantar foot diabetic ulcer. Clinically the patient is improving. No new recommendations. Still plan to continue the cefazolin as long as we are watching his creatinine improved. Once this is stable we will discharge him on oral 1st generation cephalosporin. Plan: 1. Continue cefazolin. Adjust as renal function improves. 2. Follow appearance of right lower extremity inflammation. 3. Plan switch to oral antibiotics upon discharge. Subjective: Patient is resting comfortably in his hospital bed. He has no complaints. Denies diarrhea or rash. Objective: Cefazolin # 5 Vital Signs Temp Pulse Resp BP Pulse Ox 36.9 C 65 12 151/82 H 90 L 07/07/16 11:05 07/07/16 11:05 07/07/16 11:05 07/07/16 11:05 07/07/16 11:05 Laboratory Results 07/07/16 04:35 07/07/16 04:35 07/06/16 07/07/16 07/08/16 05:59 05:59 05:59 Intake Total 660 1500 500 Output Total 1300 2700 250 Balance -640 -1200 250 - Physical Exam General Appearance: WD/WN, alert, no apparent distress, non-toxic Cardiac/Chest: regular rate, rhythm Extremities: non-tender, No normal inspection (Right foot wrapped and dressed with no proximal erythema. No strike through dressing.), No erythema Skin: normal color, warm/dry, No rash Neuro/Psych: alert, normal mood/affect, oriented x 3 ICD10 Worksheet Patient Problems: Problems Problem Status Diagnosed Chronic kidney disease stage 3 Acute Chronic renal insufficiency Acute Diabetic foot ulcer Acute Sepsis affecting skin Acute CAD - Coronary arteriosclerosis Active Diabetic neuropathy Active History of - deep vein thrombosis Active Insulin-treated khd-yhubwer-ithdnfqll diabetes mellitus Active 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
--- NOTE | 2016-07-07 14:20 | SOAPPROG ---
SOAP Progress Note Assessment/Plan: Assessment: 1.Non-oliguric HARSHIL. Most likely ischemic ATN d/t infxn/hypovolemia/ARB. -urine sediment consistent with ATN -Renal u/s normal. _cr improved to 3.9 today, good UOP -lytes stable thus far 2. RLE cellulitis- antibiotics per ID, improving 3. Diarrhea. much better 4. DM2- insulin per primary service. 5. Acidosis- HARSHIL and diarrhea related- resolved, bicarb now 26 I discussed with hospitalist Shila Mackay MD [facility] [phone] 07/07/16 15:59 Subjective: Watching tv, feels well. No diarrhea, n/v. Good UOP. Cr improving. On RA, no SOB. Objective: Vital Signs Temp Pulse Resp BP Pulse Ox 36.9 C 65 12 151/82 H 90 L 07/07/16 11:05 07/07/16 11:05 07/07/16 11:05 07/07/16 11:05 07/07/16 11:05 Laboratory Results 07/07/16 04:35 07/07/16 04:35 07/06/16 07/07/16 07/08/16 05:59 05:59 05:59 Intake Total 660 1500 500 Output Total 1300 2700 250 Balance -640 -1200 250 Physical Exam - Physical Exam General Appearance: alert, no apparent distress EENT: other (mmm, no icterus) Cardiac/Chest: regular rate, rhythm Peripheral Pulses: 0: dorsalis-pedis (L) Skin: warm/dry Extremities: other (trace LE edema, less erythema over ankle) Neuro/Psych: alert, oriented x 3 ICD10 Worksheet Patient Problems: Problems Problem Status Diagnosed Chronic kidney disease stage 3 Acute Chronic renal insufficiency Acute Diabetic foot ulcer Acute Sepsis affecting skin Acute CAD - Coronary arteriosclerosis Active Diabetic neuropathy Active History of - deep vein thrombosis Active Insulin-treated wsc-whcgiwd-kaahyobyn diabetes mellitus Active 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
[2016-07-07] MEDS: INSULIN LISPRO 100 UNIT/ML SC SCH (18:21)
[2016-07-07] MEDS: DULoxetine 30 MG CAP PO SCH (21:01)
[2016-07-08 04:45] LABS: % IMMATURE GRANULYOCYTES 1.4 % (0.0-1.1); ABSOLUTE IMMATURE GRANULOCYTES 0.14 10^3/uL (0.00-0.10); ADD DIFF? NO; ADD MORPH? NO; ADD SCAN? NO; ATYPICAL LYMPHOCYTE FLAG 90 (0-99); FRAGMENT RBC FLAG 0 (0-99); HEMATOCRIT 32.8 % (40.0-51.0); HEMOGLOBIN 10.8 g/dL (13.7-17.5); LEFT SHIFT FLG 10 (0-99); LIPEMIA HEMOLYSIS FLAG 80 (0-99); MEAN CELL HEMOGLOBIN 26.8 pg (27.9-34.1); MEAN CELL HEMOGLOBIN CONCENTR. 32.9 g/dL (32.4-36.7); MEAN CELL VOLUME 81.4 fL (81.5-99.8); MEAN PLATELET VOLUME 9.8 fL (8.7-11.7); PLATELET CLUMPS FLAG 0 (0-99); PLATELET COUNT 297 10^3/uL (150-400); RED BLOOD CELL COUNT 4.03 10^6/uL (4.40-6.38); RED CELL DISTRIBUTION WIDTH 14.2 % (11.5-15.2)
[2016-07-08 05:22] LABS: ALBUMIN 2.3 g/dL (3.5-5.0); ANION GAP 10 mEq/L (8-16); CALCIUM 8.4 mg/dL (8.5-10.4); CARBON DIOXIDE 22 mEq/l (22-31); CHLORIDE 109 mEq/L (97-110); CREATININE 3.5 mg/dL (0.7-1.3); GLOMERULAR FILTRATION RATE 18; GLUCOSE 154 mg/dL (70-100); POTASSIUM 4.7 mEq/L (3.5-5.2); SODIUM 141 mEq/L (134-144)
[2016-07-08] MEDS: LEVOTHYROXINE 125 MCG TAB PO SCH (05:44)
[2016-07-08 07:46] VITALS: BP 158/94; PULSE 63; RESP 13; TEMP 98.3; O2SAT 95
[2016-07-08] MEDS: INSULIN LISPRO 100 UNIT/ML SC SCH ×2 (09:45→12:32)
[2016-07-08] MEDS: LANSOPRAZOLE SUSP 3 MG/ML UDSYR (Peds) PO SCH (09:56)
[2016-07-08] MEDS: METOPROLOL TARTRATE 25 MG TAB PO SCH (09:56)
[2016-07-08] MEDS: RIVAROXABAN 15 MG TAB PO SCH (09:58)
[2016-07-08] MEDS: GABAPENTIN 100 MG CAP PO SCH (09:58)
[2016-07-08] MEDS: ASPIRIN EC 81 MG TAB PO SCH (09:58)
--- NOTE | 2016-07-08 12:52 | SOAPPROG ---
SOAP Progress Note Assessment/Plan: Assessment: 1.Non-oliguric HARSHIL. Most likely ischemic ATN d/t infxn/hypovolemia/ARB. -urine sediment consistent with ATN, complements normal -Renal u/s normal. -cr improved to 3.5 today, good UOP -lytes stable thus far -ok to d/c from renal perspective- needs labs later this week (my office will call him to arrange) 2. RLE cellulitis- antibiotics per ID, improving 3. Diarrhea. resolved 4. DM2- insulin per primary service. 5. Acidosis- HARSHIL and diarrhea related- resolved, bicarb now 22 I discussed with hospitalist and RN Shila Mackay MD [facility] [phone] 07/08/16 13:07 Subjective: Feels well, asking if he can go home. No n/v, diarrhea, sob, fevers. Thinks wound is better. Cr improved to 3.5, good UOP. Objective: Vital Signs Temp Pulse Resp BP Pulse Ox 36.8 C 63 13 158/94 H 95 07/08/16 07:45 07/08/16 07:45 07/08/16 07:45 07/08/16 07:45 07/08/16 07:45 Laboratory Results 07/08/16 04:25 07/08/16 04:49 07/07/16 07/08/16 07/09/16 05:59 05:59 05:59 Intake Total 1500 1500 500 Output Total 2700 3325 900 Balance -1200 -1825 -400 Physical Exam - Physical Exam General Appearance: no apparent distress EENT: other (mmm) Neck: supple Respiratory: lungs clear Cardiac/Chest: regular rate, rhythm Abdomen: normal bowel sounds, non-tender, soft Skin: warm/dry Extremities: other (erythema improved over ankle, no edema) Neuro/Psych: alert, oriented x 3 ICD10 Worksheet Patient Problems: Problems Problem Status Diagnosed Chronic kidney disease stage 3 Acute Chronic renal insufficiency Acute Diabetic foot ulcer Acute Sepsis affecting skin Acute CAD - Coronary arteriosclerosis Active Diabetic neuropathy Active History of - deep vein thrombosis Active Insulin-treated crd-yoqzyyy-ekauityne diabetes mellitus Active 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
--- NOTE | 2016-07-08 14:02 | GDS ---
[f rep st] DISCHARGE SUMMARY DIAGNOSES: 1. Right lower extremity cellulitis associated with chronic plantar diabetic foot ulcer, complicated by sepsis status post debridement by Dr. Degroot. 2. Acute on chronic renal failure, creatinine down from 4.8 to 3.5 on the day of discharge, will fol low up lab this week and follow up with Nephrology. 3. Diabetes. 4. Atrial fibrillation, status post ablation type 2, on Xarelto for anticoagulation. 5. Coronary artery disease with cardiac stents previously. 6. Hypertension. 7. Dyslipidemia. CONSULTATIONS: Include Infectious Disease, Nephrology, General Surgery, and Wound Care. PROCEDURES DONE: 1. Echocardiogram: Normal left ventricular systolic function, mild LVH, RVSP elevated 50-55, no sig nificant change since 2010. 2. Renal ultrasound: No hydronephrosis, PVR of 190. 3. Debridement skin, soft tissue, including subcutaneous tissue, and application of tissue-derived s kin substitute on 07/04/[address] Degroot. HOSPITAL COURSE: The patient is a 61-year-old with diabetes and chronic lower extremity [facility], who was admitted with fevers, chills, and found to have cellulitis at the site of a previous diab etic foot infection. He was admitted to the hospital and placed on appropriate antibiotics. Infecti ous Disease and General Surgery did consult and eventually, he underwent a debridement and has ongoin g wound care with significant improvement in his infection. On the day of discharge, he was transiti oned from IV Ancef to cephalexin orally, and will follow up with the [facility] Care [facility] and Dr. Althea west as an outpatient. Other issues include acute on chronic renal failure. During his hospitalization, Nephrology was cons ulted and they felt that this is likely acute tubular necrosis. He continued to have good urine outp ut and his creatinine has improved from 4.8 down to 3.5 at the day of discharge. He has had ongoing improvement throughout the last few days, and Nephrology feels he is stable for discharge home with c lose followup and blood work. The rest of his medical issues remained stable, although his blood sug ars were fairly erratic. They have been stabilizing at time of discharge and he will resume his home dose regimen. CONDITION ON DISCHARGE: Good. He is 95% on room air, heart rate 63, blood pressure 128/67. He is a lert and oriented. Significantly decreased erythema and evidence of cellulitis on his right lower ex tremity. DISCHARGE MEDICATIONS: Please see discharge medication form. In addition to his home medications, penny flores will be given a prescription for cephalexin 500 mg b.i.d. This dose can be adjusted if he has impr jorge renal function. FOLLOWUP INSTRUCTIONS: He should follow up with the Wound Care Clinic and Althea Patel this week. Zaria llow up with Dr. Kern this week. He will also get his blood work done on Saturday or Saturday a basic metabolic panel and those results will be sent to Dr. Montoya from [facility] to follow up on his kidney function. Total time spent with patient on day of discharge and coordination of care is 35 minutes. /[id number]/MODL
--- NOTE | 2016-07-08 16:21 | PCMIDPN ---
Assessment/Plan: Assessment: Right lower extremity cellulitis associated with a chronic right plantar foot diabetic ulcer. Clinically the patient is improving. No new recommendations. Still plan to continue the cefazolin as long as we are watching his creatinine improved. Once this is stable we will discharge him on oral Keflex with dose adjusted for renal insufficiency. Plan: 1. Continue cefazolin. Adjust as renal function improves. 2. Follow appearance of right lower extremity inflammation. 3. Plan switch to oral Keflex upon discharge. 07/08/16 17:02 Subjective: Patient is doing well today is visiting with a friend in his hospital room. He has no new complaints. No fevers. No rash. Objective: Cefazolin # 6 Vital Signs Temp Pulse Resp BP Pulse Ox 36.8 C 63 13 158/94 H 95 07/08/16 07:45 07/08/16 07:45 07/08/16 07:45 07/08/16 07:45 07/08/16 07:45 Laboratory Results 07/08/16 04:25 07/08/16 04:49 07/07/16 07/08/16 07/09/16 05:59 05:59 05:59 Intake Total 1500 1500 500 Output Total 2700 3325 900 Balance -1200 -1825 -400 - Physical Exam General Appearance: WD/WN, alert, no apparent distress, non-toxic Respiratory: lungs clear, normal breath sounds, No respiratory distress Cardiac/Chest: regular rate, rhythm, No tachycardia Extremities: non-tender, No normal inspection Skin: normal color, warm/dry, No rash Neuro/Psych: alert, normal mood/affect, oriented x 3 ICD10 Worksheet Patient Problems: Problems Problem Status Diagnosed CAD - Coronary arteriosclerosis Active Diabetic neuropathy Active History of - deep vein thrombosis Active Insulin-treated gcn-jbgyvsf-mejebrlwz diabetes mellitus Active 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 Chronic kidney disease stage 3 Acute Chronic renal insufficiency Acute Diabetic foot ulcer Acute Sepsis affecting skin Acute
--- NOTE | 2016-07-09 07:57 | SOAPPROG ---
SOAP Progress Note Assessment/Plan: Assessment: Procedure included excisional debridement including the skin and soft tissue and subcutaneous tissue Plan: 07/05/16 10:02 07/09/16 07:56 Objective: Vital Signs Temp Pulse Resp BP Pulse Ox 36.8 C 63 13 158/94 H 95 07/08/16 07:45 07/08/16 07:45 07/08/16 07:45 07/08/16 07:45 07/08/16 07:45 Laboratory Results 07/08/16 04:25 07/08/16 04:49 07/08/16 07/09/16 07/10/16 05:59 05:59 05:59 Intake Total 1500 500 Output Total 332 900 Balance -1138 -400 ICD10 Worksheet Patient Problems: Problems Problem Status Diagnosed CAD - Coronary arteriosclerosis Active Diabetic neuropathy Active History of - deep vein thrombosis Active Insulin-treated biv-xzbikgp-mphtdfvdm diabetes mellitus Active 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 Chronic kidney disease stage 3 Acute Chronic renal insufficiency Acute Diabetic foot ulcer Acute Sepsis affecting skin Acute
== END 2016-07-08 15:20 | disposition home or self-care (01) | DRG 853 ==
LOC: EDUNIT# → F3E 12:22
PROVIDERS: ADMIT Internal Medicine; ATTEND Internal Medicine
PROC: 0HRMXK4 Replacement of Right Foot Skin with Nonautologous Tissue Substitute, Partial Thickness, External Approach (ICD-10-PCS; principal; 2016-07-04)
DX: A41.9 Sepsis, unspecified organism (principal); L03.115 Cellulitis of right lower limb; E11.621 Type 2 diabetes mellitus with foot ulcer; E11.21 Type 2 diabetes mellitus with diabetic nephropathy; N17.0 Acute kidney failure with tubular necrosis; N18.3 Chronic kidney disease, stage 3 (moderate); B00.1 Herpesviral vesicular dermatitis; I25.10 Atherosclerotic heart disease of native coronary artery without angina pectoris; Z95.5 Presence of coronary angioplasty implant and graft; I48.0 Paroxysmal atrial fibrillation; Z79.01 Long term (current) use of anticoagulants; I10 Essential (primary) hypertension; E78.5 Hyperlipidemia, unspecified
CPT/HCPCS: 96365; J0360; J0690; J1815; J2405; J2543; J3370

== ENCOUNTER → 2016-08-21 | Outpatient (CLI) | payer OTHER | LOC: FIMAGING 10:29 | PROVIDERS: ATTEND Internal Medicine Infectious Disease | DX: M14.671 Charcot's joint, right ankle and foot (principal); M79.89 Other specified soft tissue disorders ==

== ENCOUNTER 2016-09-14 08:50 | Day surgery (SDC) | payer OTHER ==
[2016-09-10 11:32] LABS: ANION GAP 10 mEq/L (8-16); CALCIUM 8.9 mg/dL (8.5-10.4); CARBON DIOXIDE 21 mEq/l (22-31); CHLORIDE 105 mEq/L (97-110); CREATININE 1.6 mg/dL (0.7-1.3); GLOMERULAR FILTRATION RATE 44; GLUCOSE 276 mg/dL (70-100); POTASSIUM 5.3 mEq/L (3.5-5.2); SODIUM 136 mEq/L (134-144)
--- NOTE | 2016-09-13 10:09 | GHP ---
[f rep st] PREOP HISTORY AND PHYSICAL DATE OF ADMISSION: 09/14/2016 PLANNED PROCEDURE: Debride ulcer, right foot. HISTORY OF PRESENT ILLNESS: The patient presented. Over the years, he has had multiple ulcerations on his right lower extremity over the last 5 years. He had this area closed for a couple of months 2 years prior and was doing fairly well at that point, but his compliance has been a significant pr oblem over the years as far staying off his feet, wearing shoes consistently, watching out for shoes that are wearing out, and getting new shoes. He walks in stocking feet at home quite often which c auses increased pressure underneath that right foot and keeps the ulcer going. At this point, he gonzalez s a grade 2/3 ulceration on the right foot. It is measuring approximately 6 x 4 cm, 1 cm deep. It is about 99% granular, but there is a bony prominence underneath the cuboid bone laterally. This gonzalez s been kind of an ongoing problem. He has a Charcot history. PAST MEDICAL HISTORY: He is a poorly controlled diabetic, although his A1cs have recently been in t he higher 6's. He is insulin dependent. He has reflux disease. He has low thyroid. He has hypert ension, heart disease, has had stents placed. He has been in renal failure 3 different times. He i s an extremely high risk middle-aged diabetic. ALLERGIES: He has no known drug allergies. SOCIAL HISTORY: Never used tobacco of any kind. Denies alcohol use. MEDICATIONS: He is on Synthroid, Lantus insulin, Humalog insulin, Lopid, Actos, and Prilosec. FAMILY HISTORY: A strong family history of diabetes on both sides. No other family history of any unusual health issues. His father did have a Charcot deformity on his foot also. REVIEW OF SYSTEMS: At his preop appointment, he was alert and oriented. He has denied having any r ecent headaches; vision, hearing, nasal, or throat problems. He said he feels in good health. He h as had no fever, no chills. Denies any cardiac, GI, , neurologic, dermatologic, or respiratory pr oblems. PHYSICAL EXAMINATION: He has a chronically edematous right lower extremity. Pulses are seen on Dop pler but nonpalpable. His capillary flow is less than 6 seconds to digits x10. He has a few minor varicosities. He has 1 to 2+ pitting edema from the knee distally to the toes on both feet. This i s fairly symmetric. Neurologically, he is completely neuropathic distal to the ankles bilateral due to his past medical history with his diabetes and his current status with diabetes. Skin shows silverio rly good temperature, smooth texture, loss of hair dorsally over both feet. The open ulceration as stated, 99% granular, measured 6 x 4 with the pressure ulcer. His musculoskeletal evaluation showed 5/5 manual muscle testing to the extrinsic as well as intrinsic muscles. IMAGING: On x-rays, he has almost a completely obliterated midtarsal joint due to the Charcot defor mity. This is something that has cracked and healed over the years. The midtarsal joint has no ran ge of motion at this point. Subtalar joint causes no problems but is in a fixed, slightly valgus po sition. The ankle joint is still pain-free with dorsiflexion, plantar flexion. It shows no signifi cant mechanical changes. ASSESSMENT: A Ferreira grade 2/3 ulceration, chronic, secondary to a prominent cuboid bone and not he aling. PLAN: At this point, is to do a debride of the cuboid with as much primary closure as we can on etelvina s wound. In our discussion preoperatively, we discussed staying off his feet completely. He has to get in a wheelchair for a month postoperatively. I told him outside of that, it was a waste of luis flores to do the surgery. With this kind of debride and partial cuboid resection, there is always a diaz ce it could break down again, and with his Charcot, diabetes, neuropathy, there is always a chance penny flores can get another ulceration. He is well aware of this. All of this was discussed directly with jose antonio flores patient. Consent form was signed. He was given oral and written postop instructions, along with a prescription for pain medications, Percocet 10, #30, 1 tab p.o. q.4-6h p.r.n. pain. I told hi m only to take the pain meds if there was a significant amount of pain. He will be followed up x3 d ays postop at [facility]. All questions were answered. His prognosis is guard ed at this point, and with his diabetes and with his history of renal failure, certainly, he is a hi gh-risk individual. The anesthesia will be done under MAC anesthesia, not general, and I do not rec ommend general with this patient due to his past medical history. /[id number]/MODL
[2016-09-14] MEDS ORDERED: LIDOCAINE 1% 5 ML SDV ONE (09:36)
[2016-09-14] MEDS ORDERED: ceFAZolin 2 GM/DEXTROSE 100 ML IV ONE (10:00)
[2016-09-14] MEDS ORDERED: BUPIVACAINE/EPI 0.25% 30 ML SDV ONE (10:08)
[2016-09-14] MEDS ORDERED: LIDOCAINE 1% 30 ML SDV ONE (10:09)
[2016-09-14] MEDS ORDERED: LIDO/EPI 1% **for epidural** 30 ML SDV ONE (10:09)
[2016-09-14] MEDS ORDERED: ceFAZolin 1 GM/5 ML SYR ONE (10:09)
[2016-09-14] MEDS ORDERED: MIDAZOLAM 2 MG/2 ML VIAL ONE (10:17)
[2016-09-14] MEDS ORDERED: LR 1,000 ML IV ONE (10:23)
[2016-09-14] MEDS ORDERED: fentaNYL 100 MCG/2 ML INJ ONE (10:37)
[2016-09-14] MEDS ORDERED: LIDOCAINE 2% 5 ML SDV ONE ×2 (10:41→10:42)
[2016-09-14] MEDS ORDERED: PROPOFOL/EMULSION 500 MG/50 ML BOTTLE IV ONE (10:43)
--- NOTE | 2016-09-18 09:54 | GOP ---
[f rep st] OPERATIVE REPORT DATE OF OPERATION: 09/14/2016 SURGEON: Yehuda English DPM ANESTHESIA: MAC anesthesia plus a local infiltration of approximately 6 cc of 0.25% Marcaine with e pinephrine. ANESTHESIOLOGIST: MD Claire. PREOPERATIVE DIAGNOSIS: Chronic diabetic ulcer, right foot. POSTOPERATIVE DIAGNOSIS: Chronic diabetic ulcer, right foot. PROCEDURE PERFORMED: Debride of ulcer with partial cuboid resection, right foot. FINDINGS: ESTIMATED BLOOD LOSS: Less than 40 cc. DESCRIPTION OF PROCEDURE: The patient was taken to the operating room, placed supine position. Aft er local MAC anesthesia, the right lower extremity was elevated, prepped and draped in the usual konrad rile OR fashion, achieving a sterile field about the entire distal aspect of the extremity. Attenti on was directed to the plantar aspect of the foot. The foot was exsanguinated. Tourniquet was infl ated to 250 mmHg. Total tourniquet time was less than 60 minutes. Attention was directed to the pl jordin aspect of the ulceration where converging semi-elliptical incisions were made from distal to p roximal on the plantar lateral aspect of the foot measuring approximately 3-4 inches. This tis wandy was removed. Any scar tissue was debrided out of the area subcutaneously. A Freeman elevator was u sed to free up any scar tissue and any soft tissue from the plantar aspect of the cuboid bone. Ther e were 3 large bony spikes noted on the plantar aspect of the foot. These were resected utilizing a bone saw and rasp utilizing a rotary gatito. The area was inspected a total of 5 times to ensure suzanne t there were no bony prominences and that there was a good flat plane of bone underneath the patient 's right foot so that there would not be any bony prominences postoperatively. The area was flushed copiously 3 different times with antibiotic solution. There was minimal evidence of any bony infec tion. The patient did have a history of Charcot deformity, and with this history of Charcot deformi ty, this was known preoperatively. The tissue was sent for culture, both aerobic, anaerobic, acid-f ast and fungal just to be sure that there was no latent or subtle infections that were not noted. A gain, the area was flushed copiously with dilute antibiotic solution. Deep capsular and scar tissue closure was carried out via 2-0 Vicryl in a simple interrupted suture. Skin closure was carried ou t via 0 Vicryl with a simple interrupted and horizontal mattress suture. It should be noted there w as some active bleeding in spite of the tourniquet. There was some bleeding throughout the entire p rocedure. The tourniquet was released. There was minimal bleeding postoperatively, so it was deeme d unnecessary to use a drain on the foot as there was very little bleeding both intraoperatively and postoperatively. Adaptic, fluffs, 4 x 4's, Kerlix was used for dressing. The patient was placed i n a double thickness fiberglass cast, placed in nonweightbearing for the 3 days postop. Will be fol lowed up postop at [facility]. Upon release of the tourniquet, it should be no cleo that all digits returned to a uniform pink color with normal capillary refill. At this point, I think his prognosis is good for healing this as long as he stays off it. He has been very poorly c ompliant in the past as far as being nonweightbearing. I told him he needs to remain nonweightbeari ng for a solid month postoperatively. I will use fiberglass casting postoperatively to assure that he does not create any pressure on the area. His prognosis remains guarded in the skilled nursing, but in the short term, I do think it is fairly good that he will heal this. He went into recovery in a sa tisfactory state with all vital signs stable. We discussed the postoperative course with him in rec overy, and again, he is to remain nonweightbearing. He will follow up at [facility] on Saturday. If he has any problems or questions over the weekend, he was given my cell phone patricia mancilla for 24-hour call. SURGEON: Samuel English DPM. COMPLICATIONS: There were no complications. DRAINS: No drains were placed in the operative site. /[id number]/MODL
== END 2016-09-14 13:50 | disposition home or self-care (01) ==
LOC: FSGY 08:50
PROVIDERS: ATTEND Podiatrist
PROC: 0JBQ0ZZ Excision of Right Foot Subcutaneous Tissue and Fascia, Open Approach (ICD-10-PCS; principal; 2016-09-14 10:15)
PROC: 0QBL0ZZ Excision of Right Tarsal, Open Approach (ICD-10-PCS; principal; 2016-09-14 10:15)
DX: L97.511 Non-pressure chronic ulcer of other part of right foot limited to breakdown of skin (principal); E11.621 Type 2 diabetes mellitus with foot ulcer; K21.9 Gastro-esophageal reflux disease without esophagitis; I12.9 Hypertensive chronic kidney disease with stage 1 through stage 4 chronic kidney disease, or unspecified chronic kidney disease; I25.10 Atherosclerotic heart disease of native coronary artery without angina pectoris; Z95.5 Presence of coronary angioplasty implant and graft; Z91.19 Patient's noncompliance with other medical treatment and regimen; M14.672 Charcot's joint, left ankle and foot; E11.40 Type 2 diabetes mellitus with diabetic neuropathy, unspecified; N18.3 Chronic kidney disease, stage 3 (moderate); I48.91 Unspecified atrial fibrillation; E03.9 Hypothyroidism, unspecified; G47.33 Obstructive sleep apnea (adult) (pediatric); Z79.4 Long term (current) use of insulin; Z83.3 Family history of diabetes mellitus
CPT/HCPCS: J0690; J2250; J2704; J3010

== ENCOUNTER 2018-02-07 05:44 | Day surgery (SDC) | payer OTHER ==
--- NOTE | 2018-02-06 21:58 | GHP ---
HISTORY AND PHYSICAL Patient has been a patient for the past 5 years, with chronic ulcerations into both lower extremities off and on. The right has been more severe than the left historically. He has had multiple surgeries on both feet, all of which have helped for short periods of time where he has developed more and more neuropathic ulcers to both lower extremities. Currently he has a 1 cm ulceration on the plantar aspect of the right lower extremity secondary to an old Charcot type deformity on his right lower extremity. Left lower extremity has a 2.5 cm open round granular ulceration underneath the 5th metatarsal secondary to a pressure sore underneath that area. He has been treated with contact casting, decreased ambulation, but he has been a compliance problem over the years due to his increased ambulation and refusal to get off his feet. He is a 20-plus year diabetic, insulin dependent. Had renal failure twice. Current renal function studies have him at approximately 35% renal functions. PAST MEDICAL HISTORY: He is a diabetic. He has cardiovascular disease. He status post stent placement in his heart. He is morbidly obese. The kidney disease, as stated, with his insulin-dependent diabetes. Most recent A1c's have been in the 6's. He has been fairly compliant over the last year with his blood glucose control. He does take Plavix. He quit taking it approximately 6 days prior to the surgery. Planned surgery is for February 07, 2018. At this preop appointment, we discussed his foot. I went over review of systems. He has not been having any recent headaches, vision, hearing, nasal or throat problems. Denies any cardiac arrhythmias, chest pain, shortness of breath, GI distress, neurologic, dermatologic, or other musculoskeletal problems. Again, he does have the chronic kidney problems. He does have a cardiovascular history. PAST SURGICAL HISTORY: He has had multiple surgeries in the past, including fusions, partial bone resections in both feet, Charcot deformity on both feet. Currently, his feet are stable with a Charcot deformity. He has had numerous breakdowns of bone previously, but currently the bone situation in his feet is fairly stable. Objectively, his pulses are nonpalpable due to chronic edema, but he does have pulses on Doppler. Capillary fill is less than 5 seconds to the digits x10. He has moderate varicosities and chronic edema from the ankles distally to the toes bilateral. He is completely neuropathic distal to the ankles bilateral secondary to his diabetes and poor compliance previously with his diabetes. Skin shows loss of hair dorsally over both feet, with multiple scars secondary to prior surgeries. Skin is intact, other than the 2 ulcerations, one measured as stated on the right, and the other 2.5 cm on the left. Both wounds are very granular. There is no evidence of infection currently. There is no tracking to either ulceration site. They have been fairly stable with the contact casting, but the casting has been frivolous in getting these wounds to heal due to the patient's mechanical changes in his feet due to the significant deformity we have seen over the years, and recently. He has pressure points underneath the 5th metatarsal on the left, and underneath the cuboid bone on the right foot. Musculoskeletal evaluation: He has normal muscle mass and tone to the anterior, lateral and posterior leg muscles. Intrinsic muscles on the feet are fairly weak, and have very little functionality. He has normal pain-free range of motion of the ankles and subtalar joints bilateral. His midtarsal joints have essentially auto fused secondary to the prior Charcot deformities that we have seen. ASSESSMENT: 1. Grade 2 ulcer, bilateral, left being worse than the right. 2. Diabetic neuropathy. 3. End-stage renal disease. PLAN: Plan at this point is to do just a bony excision underneath these pressure points and try and get these wounds to heal. He understands that he is getting kind of to the end of his possibilities as far as dealing with these wounds and dealing with these type problems. Over the years we have discussed at length that he needs to lose weight, get his diabetes under better control, watch his diet. He has essentially ignored medical advice for years, and the net result is what we are seeing today. At this point his prognosis is guarded. He will be followed up x3 days postop at [facility]. He does have my cell phone number for 24 hour call should he have any problems or questions postoperatively. He does see a professional organizer regularly, sees his speed belt sander on a regular basis. Does have blood work done continuously. He does see his director religious education on a regular basis also, and he is currently off his Plavix to allow for coagulation and healing postoperatively. /[id number]/MODL MTDD
[2018-02-07] MEDS ORDERED: LR 1,000 ML IV ONE (06:02)
[2018-02-07] MEDS ORDERED: HYDROCODONE/APAP 5/325 TAB PO PRN (07:06)
[2018-02-07] MEDS ORDERED: ACETAMINOPHEN 500 MG TAB PO PRN (07:06)
[2018-02-07] MEDS ORDERED: NALOXONE HCL 0.4 MG/ML INJ IVP PRN (07:06)
[2018-02-07] MEDS ORDERED: ONDANSETRON 4 MG/2 ML VIAL IVP PRN (07:06)
[2018-02-07] MEDS ORDERED: ALBUTEROL 3 ML DEYVIAL IH PRN (07:06)
[2018-02-07] MEDS ORDERED: fentaNYL 100 MCG/2 ML INJ IVP PRN (07:06)
[2018-02-07] MEDS ORDERED: BUPIVACAINE 0.25% 30 ML SDV ONE (07:07)
[2018-02-07] MEDS ORDERED: LIDOCAINE 1% 300 MG/30 ML SDV ONE (07:07)
[2018-02-07] MEDS ORDERED: EPINEPHrine 1 MG/ML INJ ONE (07:07)
[2018-02-07] MEDS ORDERED: ceFAZolin 1 GM/5 ML SYR ONE (07:08)
--- NOTE | 2018-02-07 07:08 | PDANEPAE ---
ANE History of Present Illness Bilateral Talus ANE Past Medical History - Cardiovascular History Hx Hypertension: Yes Hx Arrhythmias: Yes Hx Coronary Artery / Peripheral Vascular Disease: Yes Hx CHF / Valvular Disease: No Hx Palpitations: No Cardiovascular History Comment: A-FIB AND BLOD CLOT IN 1 OF 2014 - Pulmonary History Hx COPD: No Hx Asthma/Reactive Airway Disease: No Hx Recent Upper Respiratory Infection: No Hx Oxygen in Use at Home: Yes O2 in Use at Home (L/minute): 2L Hx Sleep Apnea: Yes Sleep Apnea Screening Result - Last Documented: Positive Pulmonary History Comment: VENANCIO - wears cPAP 'sometimes' - uses O2 'when I wear it". Had a PE in 1999, 1899's - Neurologic History Hx Cerebrovascular Accident: No Hx Seizures: No Hx Dementia: No Neurologic History Comment: DIABETIC NEUROPATHY - Endocrine History Hx Diabetes: Yes Endocrine History Comment: INSULIN DEPEN SINCE 1989. HYPOTHYROID - Renal History Hx Renal Disorders: Yes Renal History Comment: 32% kindey function. was hospitalized in Jul 2016 w/ renal failure. had been on dialysis for a week in 2007 while hospitalized. frequency - Liver History Hx Hepatic Disorders: No - Neurological & Psychiatric Hx Hx Neurological and Psychiatric Disorders: Yes Neurological / Psychiatric History Comment: Depression - Cancer History Hx Cancer: No - Congenital Disorder History Hx Congenital Disorders: No - GI History Hx Gastrointestinal Disorders: Yes Gastrointestinal History Comment: Hiatial Hernia. Acid reflux. Intermittent diarrhea - Other Health History Other Health History: PREV CELLULITIS,OSTEOMYELITIS. HAS ON BILATERAL CASTS ON FEET. wears glasses. wears - Chronic Pain History Chronic Pain: No - Surgical History Prior Surgeries: HEART (ABLATION) 06/2014. I&D LT FOOT EXC 5TH METATERSAL 2013. STENT 1995. LT FOOT HAMMERTOE AND BUNION. I&D RT FOOT 05/2011. RT FOOT RECONSTRUCTIVE SURG. MULTIPLE I&D'S. REMVL BONE LT FOOT. RT ING HERNIA. RT FOOT ORIF WITH POST HARDWARE REMVL ANE Review of Systems Review of Systems: - Exercise capacity METS (RN): 3 METS ANE Patient History - Allergies Allergies/Adverse Reactions: CATS Allergy (Mild, Uncoded 01/27/18 12:08) ITCHING/RASH - Home Medications Home Medications: Aspirin EC [Aspirin EC 81 mg (*)] 07/02/16 [Last Taken 01/31/18] Atenolol [Tenormin 25 mg (*)] 07/02/16 [Last Taken 02/06/18] DULoxetine [Cymbalta 30 MG (*)] 07/02/16 [Last Taken 02/06/18] Dulaglutide [Trulicity] 07/02/16 [Last Taken 02/02/18] Fenofibrate [Tricor 145 mg (*)] 07/02/16 [Last Taken 02/06/18] Gabapentin [Neurontin 100 MG (*)] 07/02/16 [Last Taken 02/06/18] Levothyroxine [Synthroid 125 mcg (*)] 07/02/16 [Last Taken 02/06/18] Rivaroxaban [Xarelto 10mg (*)] 07/02/16 [Last Taken 01/31/18] Adult One Daily Multivit Tab 01/27/18 [Last Taken 02/06/18] Chlorthalidone 01/27/18 [Last Taken 01/31/18] Losartan Potassium 01/27/18 [Last Taken 02/06/18] Tresiba Flextouch U-100 01/27/18 [Last Taken 02/05/18] Valtrex 01/27/18 [Last Taken 02/06/18] buPROPion 01/27/18 [Last Taken 02/06/18] Omeprazole 40 mg PO 02/07/18 [Last Taken 02/06/18] - NPO status NPO Since - Liquids (Date): 02/06/18 NPO Since - Liquids (Time): 22:00 NPO Since - Solids (Date): 02/06/18 NPO Since - Solids (Time): 20:00 - Smoking Hx Smoking Status: Never smoked - Family Anes Hx Family Hx Anesthesia Complications: none ANE Labs/Vital Signs - Vital Signs Blood Pressure: 130/71 Heart Rate: 68 Respiratory Rate: 19 O2 Sat (%): 96 Height: 182.88 cm Weight: 124.738 kg ANE Physical Exam - Airway Neck exam: FROM Mallampati Score: Class 2 Mouth exam: normal dental/mouth exam - Pulmonary Pulmonary: clear to auscultation - Cardiovascular Cardiovascular: regular rate and rhythym - ASA Status ASA Status: III ANE Anesthesia Plan Anesthesia Plan: GA with mask
[2018-02-07] MEDS ORDERED: AMPICILLIN/SULBACTAM 1.5 GM in NS 50 ML IV ONE (07:13)
[2018-02-07] MEDS ORDERED: PROPOFOL/EMULSION 500 MG/50 ML BOTTLE IV ONE ×2 (07:15)
[2018-02-07] MEDS ORDERED: LIDOCAINE 2% 2 ML INJ ONE ×2 (07:16)
--- NOTE | 2018-02-07 07:16 | PDHPUP ---
History & Physical Update H&P update statement: This history and physical update is based on an assessment of the patient which was completed after admission or registration (within 24 hours), but prior to the surgery/procedure. H&P update: H&P reviewed & patient examined (no changes)
[2018-02-07] MEDS ORDERED: fentaNYL 100 MCG/2 ML INJ ONE (07:19)
[2018-02-07] MEDS ORDERED: ONDANSETRON 4 MG/2 ML VIAL ONE (09:11)
--- NOTE | 2018-02-07 10:26 | POSTANESTH ---
Post Anesthetic Evaluation Cardiovascular Status: Normal, Stable Respiratory Status: Normal, Stable Level of Consciousness/Mental Status: Can Participate in Eval, Alert and Oriented Pain Control: Adequate, Prn Tx Ordered Nausea/Vomiting Control: Adequate, Prn Tx Ordered Complications Possibly Related to Anesthesia: None Noted
[2018-02-07 10:51] VITALS: BP 125/89
--- NOTE | 2018-02-07 11:16 | GOP ---
DATE OF OPERATION: 02/07/2018 SURGEON: Yehuda English DPM ANESTHESIA: IV MAC plus a local infiltration of approximately 10 cc of 0.25% Marcaine with epinephri ne 1:200,000 dilution. PREOPERATIVE DIAGNOSIS: Chronic diabetic ulcerations, bilateral feet. POSTOPERATIVE DIAGNOSIS: Chronic diabetic ulcerations, bilateral feet. PROCEDURE PERFORMED: Partial bone resection, both feet. FINDINGS: ESTIMATED BLOOD LOSS: Less than 20 cc. DESCRIPTION OF PROCEDURE: The patient was taken to the operating room, placed in supine position. A fter local and MAC anesthesia, both extremities were elevated, prepped and draped in the usual steril e OR fashion achieving a sterile field about the entire distal aspect of both extremities. Attention was initially directed to the right lower extremity where converging semi-elliptical incisions were made around a prior ulceration measuring approximately 1.5 cm. These were taken back to healthy skin margins. Dissection was carried down to the level of the bone. There was significant scar tissue d ue to prior procedures done in the area. Some of the scar tissue was removed from the operative site . There was a small bony prominence noted right underneath the ulceration site and this was rasped s mooth utilizing a rotary bur. The area was reinspected 3 different times. A small osteotome was uti lized to remove some of the bone also and this was rasped smooth. This was around right at the plant ar aspect near the cuboid bone on the right lower extremity, and again the area was reinspected 3 dif ferent times for any residual bony prominences or anything that could create a pressure point on that right foot. The area was flushed copiously with dilute antibiotic solution. Deep closure was mary ed out via 3-0 Vicryl in a simple interrupted suture. Subcu closure was carried out via 3-0 Vicryl i n a simple interrupted suture and skin closure was carried out via 2-0 Prolene in an alternating simp le interrupted and horizontal mattress suture. Adaptic, Manolo, Kerlix were placed over the extremity . At this point, attention was directed to the left foot. The left foot was elevated, exsanguinated, t ourniquet was inflated to 225 mm. A total tourniquet time was less than 50 minutes. Linear and conv erging semi-elliptical incisions were made over the 1+ inch round ulceration on the base of the 5th p lantar to the 5th metatarsal on the left foot. Again, taking care to preserve the neurovascular stat us to the area of this ulcer. Necrotic tissue was removed from the operative site. Dissection was c arried down to the 5th metatarsal shaft. There was an excessive bony growth on the 5th metatarsal sh aft. This was completely removed. I went ahead and resected large bony prominences on the plantar a spect of the left foot down to the base of the 5th metatarsal, leaving the head of the 5th metatarsal . The bone density was rock solid. There was no evidence of osteoporosis or any evidence of infecti on intraoperatively, but I did send the specimen for histologic evaluation for osteomyelitis. The sc ar tissue was debrided out the area. I did palpate the area for any bony prominences and none were n oted. At this point, the area was flushed copiously with dilute antibiotic solution. Deep closure w as carried out via 2-0 Vicryl in a simple interrupted suture for deep closure. The subcu closure was carried out via 3-0 Vicryl in a horizontal mattress and simple interrupted suture and skin closure w as carried out via 2-0 Prolene in a horizontal and alternating horizontal and simple interrupted sutu re. About 75% of the wound was closed on that left foot. There was not enough tissue to excise and close the entire wound, so I did cut the wound back to as clean margins as I could and then reanastom osed all this area. Tourniquet was released intraoperatively and it was deemed necessary to use a Pe nrose drain on the left side due to the space that was left after the resection of the bone. This wa s to prevent hematoma formation on that left foot. 4x4s, fluffs, and multiple Kerlix were placed on the left lower extremity. I anticipate a significant amount of drainage out that left lower extremit y. Postoperatively, the tourniquet was released just under 50 minutes. All digits returned to a unif orm pink color with normal capillary refill immediately. I did place both feet into posterior splint s, six-inch Carlos wraps and plenty of cast padding to prevent any pressure on the legs. I will be plac ing him in a contact cast immediately postoperatively in 3 days. He is to remain nonweightbearing co mpletely over the weekend. He was given my cell phone number for 24 hour call. It should be noted a fter placement of the posterior splints, the patient went to recovery in a satisfactory state with al l vital signs stable. His prognosis is good to guarded due to poor compliance in the past. He is no t a real compliant diabetic. I did visit with his postoperatively and she related that he prett y much eats whatever he wants at home. Even though his A1c's have been better, she says he does not watch his diet as he should with his diabetes and with somebody that has less than 40% renal function . I told her to do the best she could of keeping him off his feet. I cautioned him not to overdo it . I went into recovery and discussed this with him directly. He has my cell phone number for 24 jan r call should he have any problems or questions postoperatively. I will follow up on Saturday at [facility]. COMPLICATIONS: There were no complications. DRAINS: There was a [place] drain placed in the left lower extremity. /[id number]/MODL
== END 2018-02-07 11:05 | disposition home or self-care (01) ==
LOC: FSGY 05:44
PROVIDERS: ATTEND Podiatrist
PROC: 0QBL0ZZ Excision of Right Tarsal, Open Approach (ICD-10-PCS; principal; 2018-02-07 07:15)
PROC: 0QBM0ZZ Excision of Left Tarsal, Open Approach (ICD-10-PCS; principal; 2018-02-07 07:15)
DX: E11.621 Type 2 diabetes mellitus with foot ulcer (principal); L97.415 Non-pressure chronic ulcer of right heel and midfoot with muscle involvement without evidence of necrosis; L97.425 Non-pressure chronic ulcer of left heel and midfoot with muscle involvement without evidence of necrosis; E11.22 Type 2 diabetes mellitus with diabetic chronic kidney disease; E11.40 Type 2 diabetes mellitus with diabetic neuropathy, unspecified; I48.91 Unspecified atrial fibrillation; I25.10 Atherosclerotic heart disease of native coronary artery without angina pectoris; N18.6 End stage renal disease; G47.33 Obstructive sleep apnea (adult) (pediatric); E66.01 Morbid (severe) obesity due to excess calories; Z68.37 Body mass index [BMI] 37.0-37.9, adult; Z79.4 Long term (current) use of insulin
CPT/HCPCS: J0171; J0295; J2405; J2704; J3010

== ENCOUNTER 2018-03-04 13:02 | Inpatient (IN) | payer OTHER ==
--- NOTE | 2018-03-04 13:59 | EDPHY ---
H & P Time Seen by Provider: 03/04/18 13:56 HPI/ROS: CHIEF COMPLAINT: Fever and weakness HISTORY OF PRESENT ILLNESS: Patient had bilateral foot surgery by Dr. English on February 07. He has also been having intermittent diarrhea for at least 3- 4 weeks. He tells me he has a history in the remote past of MRSA and Clostridium difficile. Today presents with fever chills and severe weakness. Symptoms present for 2 days. Associated with continued diarrhea but without vomiting or abdominal pain or sore throat or headache or ENT symptoms. No urinary symptoms. Not better worse with anything. Weakness generalized and not focal. REVIEW OF SYSTEMS: Eye: no change in vision ENT: no sore throat Cardiac: no chest pain or syncope Pulmonary: no cough or SOB Abdomen: No vomiting or abdominal pain Musculoskeletal: Both feet have been in casts, were examined by his channel executive yesterday. Skin: no rash Neuro: no headache or stiff neck Constitutional: no fever : no urinary symptoms A comprehensive 10 point review of systems is otherwise negative aside from elements mentioned in the history of present illness. PAST MEDICAL HISTORY: Includes diabetes, hypertension, atrial fibrillation, and peripheral neuropathy, sleep apnea. Surgery by Dr. English on February 07 as noted above. Social history: Nonsmoker General Appearance: Alert and conversant, cooperative. Eyes: No scleral icterus. ENT, Mouth: Dry mucous membranes. Respiratory: Normal respiratory effort, breath sounds equal, lungs are clear to auscultation. Cardiovascular: Regular rate and rhythm. Gastrointestinal: Abdomen is soft and non tender. Neurological: Alert, face symmetric, can move all 4 extremities but unable to really test feet because he is in 2 Blue casts. Skin: Warm and dry, no rashes. Musculoskeletal: Both feet are in a fiberglass full cast, unable to examine his surgical wound sites. Psychiatric: Not agitated. Emergency Department course/MDM: Patient has temperature 38.6 degrees but is not hypotensive. He has no respiratory symptoms. Most likely is fever is from his feet but they are not able to be examined right now. Also considered is urinary tract infection or his diarrhea. Plan for screening sepsis labs, IV fluids, broad-spectrum antibiotics for diabetic foot infection. Called to his channel executive. 1459: Discussed with Dr. Reyna, recommended IV vancomycin and Zosyn. 1510: per pharmacy start 3.375g zosyn dose. Smoking Status: Never smoked Constitutional: Initial Vital Signs Temperature (C) 38.6 C H 03/04/18 13:15 Heart Rate 79 03/04/18 13:15 Respiratory Rate 18 03/04/18 13:15 Blood Pressure 151/82 H 03/04/18 13:15 O2 Sat (%) 94 03/04/18 13:15 O2 Delivery Mode Room Air Allergies/Adverse Reactions: CATS Allergy (Mild, Uncoded 01/27/18 12:08) ITCHING/RASH Home Medications: Medication Instructions Recorded Aspirin EC [Aspirin EC 81 mg (*)] 07/02/16 Atenolol [Tenormin 25 mg (*)] 07/02/16 DULoxetine [Cymbalta 30 MG (*)] 07/02/16 Dulaglutide [Trulicity] 07/02/16 Fenofibrate [Tricor 145 mg (*)] 07/02/16 Gabapentin [Neurontin 100 MG (*)] 07/02/16 Levothyroxine [Synthroid 125 mcg 07/02/16 (*)] Rivaroxaban [Xarelto 10mg (*)] 07/02/16 Adult One Daily Multivit Tab 01/27/18 Chlorthalidone 01/27/18 Losartan Potassium 01/27/18 Tresiba Flextouch U-100 01/27/18 Valtrex 01/27/18 buPROPion 01/27/18 Omeprazole 40 mg PO 02/07/18 Medical Decision Making - Diagnostics Imaging Results: Imaging Impressions Chest X-Ray 03/04/18 14:10 Impression: Mild cardiomegaly, without CHF or focal infiltrate. Imaging: I viewed and interpreted images myself Differential Diagnosis: Differential considered including but not limited to pneumonia, UTI, diabetic foot infection, sepsis, endocarditis. Consult/Admit Bed Type: [place] [id number], [place] [id number] Critical Care Time: Critical care time spent by me, Dr. Acevedo, exclusively with the care of this patient was 35 minutes, exclusive of PA or BATTERY PLATE ASSEMBLER time and exclusive of separate procedures. The organ system at risk was infectious and I ordered multiple diagnostics, IV vancomycin and Zosyn, consultation with hospitalist and Infectious Disease and pharmacy, IV fluids to stabilize the patient and prevent worsening of the patient's condition. - Data Points Laboratory Results: Laboratory Results 03/04/18 14:25 03/04/18 14:25 03/04/18 03/04/18 03/04/18 14:25 14:25 14:25 WBC RBC Hgb Hct MCV MCH MCHC RDW Plt Count MPV Neut % (Auto) Lymph % (Auto) [place] % (Auto) Eos % (Auto) Baso % (Auto) Nucleat RBC Rel Count Absolute Neuts (auto) Absolute Lymphs (auto) Absolute Monos (auto) Absolute Eos (auto) Absolute Basos (auto) Absolute Nucleated RBC Immature Gran % Immature Gran # PT 16.2 SEC H SEC (12.0-15.0) INR 1.28 H (0.83-1.16) APTT 44.1 SEC H SEC (23.0-38.0) VBG Lactic Acid 0.7 mmol/L mmol/L (0.7-2.1) Sodium 134 mEq/L L mEq/L (135-145) Potassium 5.4 mEq/L H mEq/L (3.3-5.0) Chloride 104 mEq/L mEq/L (97-110) Carbon Dioxide 21 mEq/l L mEq/l (22-31) Anion Gap 9 mEq/L mEq/L (8-16) BUN 44 mg/dL H mg/dL (7-23) Creatinine 2.5 mg/dL H mg/dL (0.7-1.3) Estimated GFR 26 Glucose 101 mg/dL H mg/dL (70-100) Calcium 8.8 mg/dL mg/dL (8.5-10.4) Total Bilirubin 0.4 mg/dL mg/dL (0.1-1.4) 03/04/18 14:25 WBC 12.53 10^3/uL H 10^3/uL (3.80-9.50) RBC 3.49 10^6/uL L 10^6/uL (4.40-6.38) Hgb 9.1 g/dL L g/dL (13.7-17.5) Hct 28.6 % L % (40.0-51.0) MCV 81.9 fL fL (81.5-99.8) MCH 26.1 pg L pg (27.9-34.1) MCHC 31.8 g/dL L g/dL (32.4-36.7) RDW 16.4 % H % (11.5-15.2) Plt Count 445 10^3/uL H 10^3/uL (150-400) MPV 9.4 fL fL (8.7-11.7) Neut % (Auto) 80.4 % H % (39.3-74.2) Lymph % (Auto) 8.2 % L % (15.0-45.0) [place] % (Auto) 9.0 % % (4.5-13.0) Eos % (Auto) 1.4 % % (0.6-7.6) Baso % (Auto) 0.5 % % (0.3-1.7) Nucleat RBC Rel Count 0.0 % % (0.0-0.2) Absolute Neuts (auto) 10.07 10^3/uL H 10^3/uL (1.70-6.50) Absolute Lymphs (auto) 1.03 10^3/uL 10^3/uL (1.00-3.00) Absolute Monos (auto) 1.13 10^3/uL H 10^3/uL (0.30-0.80) Absolute Eos (auto) 0.18 10^3/uL 10^3/uL (0.03-0.40) Absolute Basos (auto) 0.06 10^3/uL 10^3/uL (0.02-0.10) Absolute Nucleated RBC 0.00 10^3/uL 10^3/uL (0-0.01) Immature Gran % 0.5 % % (0.0-1.1) Immature Gran # 0.06 10^3/uL 10^3/uL (0.00-0.10) PT INR APTT VBG Lactic Acid Sodium Potassium Chloride Carbon Dioxide Anion Gap BUN Creatinine Estimated GFR Glucose Calcium Total Bilirubin Medications Given: Vancomycin HCl 1 gm/ Sodium (Chloride) 250 mls @ 250 mls/hr IV EDNOW ONE Stop: 03/04/18 16:29 Last Admin: 03/04/18 15:42 Dose: 250 mls Discontinued Medications Sodium Chloride (Ns) 2,300 mls @ 4,600 mls/hr 30 ml/kg infuse over 30 min ( 2300 ml) IV EDNOW ONE PRN Reason: Protocol Stop: 03/04/18 14:38 Last Admin: 03/04/18 14:26 Dose: 2,300 mls Piperacillin/Tazobactam/Dextrose (Zosyn 3.375 Gm (Premix)) 50 mls @ 100 mls/hr IV EDNOW ONE PRN Reason: Protocol Stop: 03/04/18 15:32 Last Admin: 03/04/18 15:42 Dose: 50 mls Departure - Departure Disposition: [facility] Acute Clinical Impression: Fever Qualifiers: Fever type: unspecified Qualified Code(s): R50.9 - Fever, unspecified Sepsis Qualifiers: Sepsis type: sepsis due to unspecified organism Qualified Code(s): A41.9 - Sepsis, unspecified organism Condition: Good
[2018-03-04] MEDS ORDERED: NS 2,300 ML IV ONE (14:09)
[2018-03-04 14:39] LABS: PLATELET COUNT 445 10^3/uL (150-400)
[2018-03-04 14:59] LABS: INR 1.28 (0.83-1.16); PROTIME(PATIENT) 16.2 SEC (12.0-15.0)
[2018-03-04] MEDS ORDERED: VANCOMYCIN HCL/NORMAL SALINE 250 ML IV ONE (15:03)
[2018-03-04] MEDS ORDERED: PIPERACILLIN/TAZO 3.375 GM/DEX 50 ML IV ONE (15:03)
[2018-03-04] MEDS ORDERED: VANCOMYCIN 1 GM in NS 250 ML IV ONE (15:30)
[2018-03-04] MEDS ORDERED: ONDANSETRON 4 MG/2 ML VIAL IVP PRN (16:41)
[2018-03-04] MEDS ORDERED: D50W 25 GM/50 ML SYR IVP PRN (16:45)
[2018-03-04] MEDS ORDERED: NS 1,000 ML IV SCH (16:45)
[2018-03-04] MEDS: INSULIN REGULAR HUMAN 100 UNIT/ML UNIT SC SCH ×2 (18:41→21:22)
[2018-03-04] MEDS: ACETAMINOPHEN 325 MG TAB PO PRN (18:50)
--- NOTE | 2018-03-04 18:51 | GHP ---
DATE OF ADMISSION: 03/04/2018 CHIEF COMPLAINT: Fever. HISTORY: Skip is a 62-year-old male who had foot surgery with Dr. English on February 07. He gonzalez s known history of Charcot foot deformity with chronic ulcerations and had them debrided at that time . Due to nonweightbearing status and difficulties with compliance, Dr. English has put him in bilate ral hard foot casts which are cut off and changed weekly. He just saw Dr. English in the office yest ian and had new casts placed. They were told the foot wounds looked good, but he did have some blo od drawn and they were called by Dr. English's office today and told to come to the emergency room du e to blood work abnormalities. He has been having fevers, chills and weakness for the last 2 weeks. He has been on oral antibiotics, but the fevers have persisted. He has had decreased oral intake, f atigue, has been sleeping for 16 hours per day. He has also had diarrhea multiple times per day for the last 3-4 weeks. PAST MEDICAL HISTORY: 1. Diabetes. 2. Chronic kidney disease. Baseline creatinine 1.8. 3. Diabetic neuropathy with Charcot joint and chronic foot ulcerations with a history of previous in fections. 4. Atrial fibrillation status post ablation. 5. Coronary artery disease status post stents. 6. Hypertension. 7. Hyperlipidemia. 8. History of DVT. 9. Obstructive sleep apnea, on 3 L nasal cannula at night. 10. Previous history of C difficile and MRSA. MEDICATIONS: Please see computer record for full detailed list. ALLERGIES: No known drug allergies. SOCIAL HISTORY: No smoking. No alcohol. Lives with his . He is supposed to be nonweightbearin g to his bilateral feet and in a wheelchair; however, he is admittedly noncompliant with this and cunha s still get up and walk. REVIEW OF SYSTEMS: Complete review of systems obtained. Review of systems negative for constitution al, HEENT, GI, pulmonary, vascular, , hematology, skin, muscle, endocrine, psych, except for positi ves as in HPI. FAMILY HISTORY: Reviewed, noncontributory to presenting complaint. PHYSICAL EXAMINATION: GENERAL: Well-developed, well-nourished male, in no distress. VITALS: [place] rature 38.6, pulse 74, blood pressure 130/72, saturating 92% on room air. EYES: Normal conjunctivae . Pupils react to light. ENT: Normal ears, nose. Hearing intact. Normal teeth. Oropharynx moist . NECK: Trachea midline. No thyromegaly. CHEST: Normal. Lungs clear to auscultation bilaterally . CARDIOVASCULAR: Regular rhythm. No murmur. No lower extremity edema. ABDOMEN: Soft, nontender. No hepatosplenomegaly. SKIN: Warm, dry, intact, without rash. EXTREMITIES: His bilateral lower extremities are in hard, large blue casts from the knee down, so unable to assess wounds at this time . MUSCULOSKELETAL: No cyanosis or clubbing. Strength 5/5 upper and lower extremities. NEUROLOGIC: Cranial nerves intact. Normal sensation to light touch. PSYCH: Alert and oriented x3. Normal af fect. Normal judgment and insight. Normal memory. LABORATORY DATA: White count 12.53, hematocrit 28.6, platelets 447. Sodium 134, potassium 5.4, chlo ride 104, bicarb 21, BUN 44, creatinine 2.5, glucose 101. INR is 1.2. Lactate 0.7. Chest x-ray is negative. This case was discussed with Dr. Les Acevedo in the emergency room. He spoke with Dr. English, who corrina l see him and likely remove the casts. Medical record reviewed. Lots of previous admissions for daren betic foot infections. ASSESSMENT/PLAN: 1. Severe sepsis as evidenced by fever and leukocytosis with evidence of end-organ damage in the for m of acute renal failure. I suspect the source is his feet. Dr. English has been consulted to remov e the casts so we could may look at the feet, although the casts were off yesterday, and the wound lo oked good at that time according to the family. Dr. Reyna has been consulted in Infectious Disease an d recommends empiric IV Zosyn and IV vancomycin. 2. Acute on chronic kidney disease. Baseline creatinine 1.8. Will hydrate with IV fluids and reche ck in the morning. 3. Diabetic neuropathy with bilateral Charcot foot deformity and chronic ulcers status post recent b ilateral debridement. Due to history of noncompliance with nonweightbearing status, he is in bilater al casts. 4. Diarrhea. Will check a GI, PCR. 5. Diabetes. Home medications need clarification. Await medication reconciliation. 6. Atrial fibrillation status post ablation. I think he is on Xarelto, but this needs confirmation. 7. Coronary artery disease status post previous stents. Since he is a vasculopath we also need to c onsider the status of his vasculature to these lower extremity wounds, especially if they are not hea ling. It is unclear to me at this time what workup has been done to assess lower extremity vascular disease. He may benefit from a CT angiogram of the aorta with bilateral lower extremity runoff. Thi s, however, of course will be limited by his current acute renal failure, but perhaps could be tolera cleo if he is at baseline creatinine with adequate hydration. 8. Obstructive sleep apnea. Wears 3 L oxygen at night. 9. Code Status: Full. 10. Admission Status: Will admit to inpatient as he is medically complex. Anticipate greater than 2 midnights. 11. Deep venous thrombosis prophylaxis. I think he is on Xarelto, but will clarify. /[id number]/MODL
--- NOTE | 2018-03-04 18:55 | PCMIDPN ---
Assessment/Plan: Assessment/Plan: * Fever/leukocytosis: Most likely associated with skin and soft tissue infection in the setting of chronic diabetic foot ulcers and recent surgical management of foot ulcerations. Reviewed with Dr. English regarding his physical exam yesterday when contact cast were off noting that he appeared to have early cellulitis of left lower extremity. Patient with prior history of MRSA bacteremia although fairly remote. At risk for beta-hemolytic streptococci and mixed infection as well given chronic foot ulcerations. Received a single dose of vancomycin in the emergency department which will likely remain therapeutic for some time in the setting of chronic renal insufficiency. Will reassess random level tomorrow. Will continue empiric Zosyn pending further culture data and clinical course. Dr. English will remove the left-sided contact cast today so that clinical exam can be followed. * Diarrhea: Chronic and intermittent. Will test for C difficile given antibiotic exposure although clinical course somewhat unusual as he has periods of diarrhea punctuated by longer periods without diarrhea. Time spent, greater than 35 min, which greater than half was spent in education/ counseling/coordination of care regarding fever, diarrhea and leukocytosis. 03/04/18 18:50 03/04/18 18:55 Subjective: Patient well known to me from previous care with prior medical history of diabetes and chronic renal insufficiency who is admitted today with fever and leukocytosis. Patient underwent partial bone resection of both feet for chronic diabetic foot ulcers on 02/07/2018. He has been in a contact cast bilaterally since his surgical procedure. He describes having fever and chills over the last 10 days. Fevers occur almost daily with chills being more intermittent but at times described as rigors. Contact casts were removed by Dr. English yesterday and replaced. I have reviewed clinical findings with him this evening noting that he felt early cellulitis was present over the left lower extremity. Patient also complains of diarrhea over several months which he describes as having a normal bowel movement followed by copious diarrhea with fecal incontinence which last for approximately 2 days and is associated with significant foul odor. Thereafter, he will have been normal bowel movements for 2-4 weeks with subsequent return of above symptoms. This is associated with crampy abdominal pain in the lower quadrants. No recent travel or animal exposure. He has been taking Augmentin over approximately the last week. Labs were performed yesterday including blood cultures which are pending. CBC showed an elevated white blood cell count. Past medical history notable from Infectious Disease perspective for MRSA bacteremia several years ago and daptomycin induced pulmonary hypersensitivity in addition to recurrent episodes of cellulitis. Allergies: Daptomycin associated with pulmonary hypersensitivity Objective: Vital Signs Temp Pulse Resp BP Pulse Ox 37.9 C 72 14 143/104 H 98 03/04/18 18:35 03/04/18 18:35 03/04/18 18:35 03/04/18 18:35 03/04/18 18:35 03/03/18 03/04/18 03/05/18 05:59 05:59 05:59 Intake Total 2600 Output Total 150 Balance 2450 Status post vancomycin 1 g x1 Zosyn 3.375 g IV Q 6 hr Blood cultures 03/03/2018 pending Blood cultures 03/04/2018 pending Chest x-ray with cardiomegaly Laboratory Tests 03/04/18 03/04/18 03/04/18 14:25 14:25 14:25 WBC 12.53 H Hct 28.6 L Plt Count 445 H Neut % (Auto) 80.4 H VBG Lactic Acid 0.7 Creatinine 2.5 H - Physical Exam General Appearance: alert, no apparent distress, non-toxic EENT: other ([place] conjunctiva), No scleral icterus, No thrush, No conjunctival petechiae Respiratory: lungs clear, No respiratory distress Cardiac/Chest: regular rate, rhythm, No systolic murmur Extremities: other (Bilateral lower extremity contact casts) Abdomen: non-tender, No distended Skin: No embolic lesions Lymphatic: other (No lymphangitis either lower extremity) ICD10 Worksheet Patient Problems: Problems Problem Status Onset Fever Acute Sepsis Acute CAD - Coronary arteriosclerosis Active Diabetic neuropathy Active History of - deep vein thrombosis Active Insulin-treated [id number]-xmcdplvln diabetes mellitus Active 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 Chronic kidney disease stage 3 Acute Chronic renal insufficiency Acute Diabetic foot ulcer Acute Sepsis affecting skin Acute
[2018-03-04] MEDS ORDERED: PIPERACILLIN/TAZO 3.375 GM/DEX 50 ML IV SCH (21:00)
[2018-03-04] MEDS: GABAPENTIN 100 MG CAP PO SCH (21:36)
[2018-03-04] MEDS: buPROPion SR 150 MG TAB PO SCH (21:36)
[2018-03-05] MEDS: PIPERACILLIN/TAZO 3.375 GM/DEX 50 ML IV SCH ×5 (01:19→23:05)
[2018-03-05] MEDS: LEVOTHYROXINE 200 MCG TAB PO SCH (05:08)
[2018-03-05 05:15] LABS: PLATELET COUNT 339 10^3/uL (150-400)
--- NOTE | 2018-03-05 07:08 | GPROG ---
INTERIM NOTE Patient admitted earlier today for left lower extremity cellulitis. I talked with Dr. Tam Reyna this evening, Infectious Disease, on cast removal for the left lower extremity. The patient had swelling , calf pain, and redness over the past week. He was seen in my office yesterday. We did run labs. Elevated white count noted today. He was admitted for his left lower extremity cellulitis. I did re move the cast this evening, applied mupirocin, sterile dressing. Will keep the area clean. Patient is to remain nonweightbearing. The wound measured, as stated previously, it is about half fibrotic, half granular. It has some serosanguineous drainage out. Could not elicit any tracking today, but c oncerned over elevated INR on the patient's labs, the fact that he has been on blood thinners for sat, and he is not coagulating on any of his wounds, having generally poor healing. He is a longstan ding neuropathic diabetic. I went ahead and wrote orders for daily dressing changes. Will talk with Dr. Reyna in the near future for future antibiotics, followup care for the patient, and I will follow him up on , see if we can get him off the blood thinners for a short period of time, as well as clearing up the cellulitis to get him back home. The patient has my cellphone number for 24 hour call, should he have any problems or questions. /[id number]/MODL
[2018-03-05] MEDS: INSULIN REGULAR HUMAN 100 UNIT/ML UNIT SC SCH ×4 (08:14→22:03)
[2018-03-05] MEDS: ATENOLOL 25 MG TAB PO SCH (08:16)
[2018-03-05] MEDS: buPROPion SR 150 MG TAB PO SCH ×2 (08:17→20:15)
[2018-03-05] MEDS: FENOFIBRATE 145 MG TAB PO SCH (08:18)
[2018-03-05] MEDS: GABAPENTIN 100 MG CAP PO SCH ×2 (08:18→20:15)
[2018-03-05] MEDS: DULoxetine 30 MG CAP PO SCH (08:18)
[2018-03-05] MEDS: RIVAROXABAN 10 MG TAB PO SCH (08:19)
[2018-03-05] MEDS: PANTOPRAZOLE SODIUM 40 MG TAB PO SCH (08:19)
[2018-03-05] MEDS: Insulin Degludec [Tresiba Flextouch U-100] SQ SCH (08:28)
--- NOTE | 2018-03-05 09:25 | PDMN ---
Medical Necessity Medical necessity: Pt meets inpt criteria per MD order and MCG M-160, Sepsis and Other Febrile Illness, without Focal Infection. 62 y/o admitted w/severe sepsis as evidenced by fever, leukocytosis, and acute renal failure. Hx diabetic neuropathy w/bilateral Charcot foot deformity and chronic ulcers , s/p recent bilateral debridement- likely source of infection. Othor comorbid conditions include acute on chronic kidney disease (baseline creatinine 1,8, 2.5 on admission), CAD w/stents, Afib w/ablation, obstr sleep apnea. IVF, IV ABX , ID consult, podiatry consult, wound care, PT/OT evals pending. anticipate>2MN for ongoing med nec monitoring/treatment in medically complex pt.
--- NOTE | 2018-03-05 10:59 | HOSPPROG ---
Hospitalist Progress Note Assessment/Plan: #Sepsis: suspect skin infection, chronic diabetic foot ulcers. Cont IV Vanc, Zosyn #HARSHIL on CKD: suspect from dehydration. Check urine lytes, IVFs. If not improved , will consult Renal. Hold diuretics, Losartan #Chronic foot ulcers: s/p partial bone resection of both feet 02/07/[address] English #Diarrhea: negative C diff #DM: glargine #A fib: s/p ablation. Xarelto #h/o DVT/PE: Xarelto #CAD: prior PCI with stents. May have PVD as well. CTA runoff may be helpful, but cannot obtain with HARSHIL #VENANCIO: 3L at night #HLD: statin #Hypothyroidism:LT4 #Diet: regular #DVT ppx: xarelto Inpatient admission for IV abx, fluids Subjective: tired. No pain Objective: Vital Signs Temp Pulse Resp BP Pulse Ox 36.6 C 98 14 131/83 H 95 03/05/18 07:44 03/05/18 08:16 03/05/18 07:44 03/05/18 08:16 03/05/18 09:31 Laboratory Results 03/05/18 04:55 03/05/18 04:55 03/04/18 03/05/18 03/06/18 05:59 05:59 05:59 Intake Total 2600 Output Total 450 400 Balance 2150 -400 PT 16.2 SEC (12.0-15.0) H 03/04/18 14:25 INR 1.28 (0.83-1.16) H 03/04/18 14:25 - Time Spent With Patient Time Spent with Patient: greater than 35 minutes Time Spent with Patient: Greater than 35 minutes spent on this patients care, greater than 50% of time spent counseling, educating, and coordinating care regarding the above mentioned plan. - Physical Exam Constitutional: no apparent distress Eyes: PERRL Ears, Nose, Mouth, Throat: moist mucous membranes Cardiovascular: regular rate and rhythym Respiratory: no respiratory distress Gastrointestinal: normoactive bowel sounds Genitourinary: no bladder fullness Musculoskeletal: other (right foot casted, left foot dressed, CDI) Neurologic: AAOx3, CN II-XII Intact Psychiatric: interacting appropriately ICD10 Worksheet Patient Problems: Problems Problem Status Onset Fever Acute Sepsis Acute CAD - Coronary arteriosclerosis Active Diabetic neuropathy Active History of - deep vein thrombosis Active Insulin-treated eae-qjjnenr-lenxykjbo diabetes mellitus Active 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 Chronic kidney disease stage 3 Acute Chronic renal insufficiency Acute Diabetic foot ulcer Acute Sepsis affecting skin Acute
--- NOTE | 2018-03-05 11:16 | ASMTCMCOM ---
CM Note CM Note Notes: Spoke w/pt and , he was admitted for diabetic foot wounds that may be source of infection. He currently goes to 's office and wound care clinic and does not have a home care agency. Pt is supposed to be non weigt bearing, pt does not think they will have any needs. Physical Therapy cleared him for home. Anticipate pt will dc home with support of when medically stable, CM available for any changes. DC Plan: Independent Date Signed: 03/05/2018 11:16 AM Electronically Signed By:Maria Ines Mari RN
[2018-03-05] MEDS ORDERED: VANCOMYCIN 750 MG in D5W 150 ML IV SCH (15:30)
[2018-03-05] MEDS ORDERED: VANCOMYCIN 1.5 GM in NS 250 ML IV SCH (15:30)
[2018-03-05] MEDS: ACETAMINOPHEN 325 MG TAB PO PRN (16:40)
--- NOTE | 2018-03-05 18:01 | PCMIDPN ---
Assessment/Plan: Assessment/Plan: * Fever/leukocytosis: Potentially associated with skin and soft tissue infection in association with diabetic foot ulcers and recent surgery-however, exam does not show significant evidence of cellulitis. Given association with diarrhea and abdominal pain, will proceed with CT scan of abdomen and pelvis to further assess and rule out any intra-abdominal processes which could be associated with prolonged fever and constitutional symptoms. Agree with plans of Dr. Lopez to obtain a.m. Cortisol. Will continue empiric Zosyn in interim while blood cultures are pending. Given no isolation of MRSA to date, will not plan additional doses of vancomycin. * Diarrhea: Chronic and intermittent. C difficile PCR negative. 03/05/18 17:50 Subjective: Patient complains of fatigue. Continues to have soft stools. Objective: Vital Signs Temp Pulse Resp BP Pulse Ox 37.7 C 74 14 134/78 H 94 03/05/18 16:00 03/05/18 16:00 03/05/18 16:00 03/05/18 16:00 03/05/18 16:00 Laboratory Results 03/05/18 11:55 03/05/18 04:55 03/04/18 03/05/18 03/06/18 05:59 05:59 05:59 Intake Total 2600 Output Total 450 700 Balance 2150 -700 Zosyn # 2 Vancomycin # 2 Blood cultures x2 no growth 03/03 and 03/04 - Physical Exam General Appearance: alert, no apparent distress, non-toxic EENT: No scleral icterus, No thrush Respiratory: lungs clear, No respiratory distress Cardiac/Chest: regular rate, rhythm Extremities: inflammation (Left foot with wound laterally with mixed fibrinous slough and slightly pale granulation tissue; no purulence or exposed bone. Mild warmth over anterior whitaker without active cellulitis) Abdomen: non-tender, No distended - Time Spent With Patient Time Spent with Patient: greater than 25 minutes Time Spent with Patient: Greater than 25 minutes spent on this patients care, greater than 50% of time spent counseling, educating, and coordinating care regarding the above mentioned plan. ICD10 Worksheet Patient Problems: Problems Problem Status Onset Fever Acute Sepsis Acute CAD - Coronary arteriosclerosis Active Diabetic neuropathy Active History of - deep vein thrombosis Active Insulin-treated jic-jgiyssa-lgmbjlcvj diabetes mellitus Active 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 Chronic kidney disease stage 3 Acute Chronic renal insufficiency Acute Diabetic foot ulcer Acute Sepsis affecting skin Acute
[2018-03-06] MEDS: PIPERACILLIN/TAZO 3.375 GM/DEX 50 ML IV SCH (05:12)
[2018-03-06] MEDS: LEVOTHYROXINE 200 MCG TAB PO SCH (05:12)
[2018-03-06] MEDS: INSULIN REGULAR HUMAN 100 UNIT/ML UNIT SC SCH ×4 (08:45→21:48)
--- NOTE | 2018-03-06 08:50 | HOSPPROG ---
Hospitalist Progress Note Assessment/Plan: #Sepsis: suspected skin infection, but wound stable and no cellulitis. CT abd/ pelvis unrevealing. IV Zosyn. ID added [place]. No vegetation on echo #HARSHIL on CKD: per pt. Cr BL 2.2-2.8. Appreciate Renal consultation. Holding IVFs. May warrant diuretics in next couple days. Hold ARB #Anemia chronic disease: suspect chronic with CKD. Polyps on last colonoscopy. FOBT. Start Epo #Mildly decompensated Grade 2 diastolic HF: off fluids. Diuretics may be warranted soon #Moderate pulm HTN: RSVP 65mmHg. Likely from VENANCIO. On O2 at night; rec outpt sleep study #Chronic foot ulcers: s/p partial bone resection of both feet 02/07/[address] English #Diarrhea: negative C diff #DM: hypoglycemic despite not receiving insulin here. Decreased PO. Normal cortisol, TSH. No infectious source truly identified #A fib: s/p ablation. Xarelto #h/o DVT/PE: Xarelto #CAD: prior PCI with stents. May have PVD as well. CTA runoff may be helpful, but cannot obtain with HARSHIL #VENANCIO: 3L at night #HLD: statin #Hypothyroidism:LT4 #Diet: regular #DVT ppx: xarelto Inpatient admission for IV abx, fluids Subjective: fatigued Objective: Vital Signs Temp Pulse Resp BP Pulse Ox 37.0 C 67 18 132/74 H 99 03/06/18 04:00 03/06/18 04:00 03/06/18 04:00 03/06/18 04:00 03/06/18 04:00 Laboratory Results 03/06/18 04:28 03/06/18 04:28 03/05/18 03/06/18 03/07/18 05:59 05:59 05:59 Intake Total 2600 Output Total 450 1300 Balance 2150 -1300 PT 16.2 SEC (12.0-15.0) H 03/04/18 14:25 INR 1.28 (0.83-1.16) H 03/04/18 14:25 - Physical Exam Constitutional: no apparent distress, obese, other (pale) Eyes: pale conjunctiva Ears, Nose, Mouth, Throat: moist mucous membranes Cardiovascular: regular rate and rhythym, no murmur, rub, or gallop, edema (+2- 3 pitting edema LEs) Respiratory: no respiratory distress Gastrointestinal: normoactive bowel sounds Genitourinary: no bladder fullness Skin: warm Musculoskeletal: full muscle strength Neurologic: AAOx3, CN II-XII Intact Psychiatric: interacting appropriately ICD10 Worksheet Patient Problems: Problems Problem Status Onset Fever Acute Sepsis Acute CAD - Coronary arteriosclerosis Active Diabetic neuropathy Active History of - deep vein thrombosis Active Insulin-treated tkh-xwusxjv-mtdlqupxd diabetes mellitus Active 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 Chronic kidney disease stage 3 Acute Chronic renal insufficiency Acute Diabetic foot ulcer Acute Sepsis affecting skin Acute
[2018-03-06] MEDS: DULoxetine 30 MG CAP PO SCH (09:24)
[2018-03-06] MEDS: PANTOPRAZOLE SODIUM 40 MG TAB PO SCH (09:24)
[2018-03-06] MEDS: GABAPENTIN 100 MG CAP PO SCH ×2 (09:24→20:32)
[2018-03-06] MEDS: RIVAROXABAN 10 MG TAB PO SCH (09:24)
[2018-03-06] MEDS: FENOFIBRATE 145 MG TAB PO SCH (09:24)
[2018-03-06] MEDS: buPROPion SR 150 MG TAB PO SCH ×2 (09:24→20:32)
[2018-03-06] MEDS: Insulin Degludec [Tresiba Flextouch U-100] SQ SCH (09:25)
--- NOTE | 2018-03-06 09:51 | PCMIDPN ---
Assessment/Plan: 1. History of fevers and leukocytosis in patient multiple medical problems status post foot surgery in early February: Blood cultures have remained negative, although the patient was on antecedent Augmentin. Patient's right foot examined on admission by Dr. English and felt not to be the source. Left lower extremity was looked at carefully by doctors John and and also felt not to be the source. Reviewed his CT scan of the abdomen and pelvis with Dr. Villanueva; no evidence of diverticulitis or other abnormality. The patient feels better, although he is still fatigued. His exam is notable only for a systolic ejection murmur, but his hematocrit is down to 24, which certainly could be causative. For now, will obtain transthoracic echocardiogram, and check [place] serologies, along with liver function tests, which have not been checked during this admission. Also check ESR and CRP. Continue Zosyn for now pending workup, but will dose adjust for increasing creatinine. TSH and cortisol are normal. No B symptoms. Over 35 min spent with this patient today. 03/06/18 09:56 Subjective: Patient is making jokes with me today, and seems quite spry this morning, although he relates feeling phlegmatic since August. History reviewed with patient. Denies drenching night sweats or B symptoms. Appetite is reasonable. Has not lost weight. History of diverticulitis in the distant past, and perhaps some mild abdominal pain, but is eating well, and no nausea or vomiting. Has been outside, but denies any insect bites, per se. Objective: Zosyn 3.375 g IV q.6 hours day 3 T-max 37.7 degrees Vital Signs Temp Pulse Resp BP Pulse Ox 36.7 C 70 14 150/83 H 99 03/06/18 08:00 03/06/18 08:00 03/06/18 08:00 03/06/18 08:00 03/06/18 04:00 Laboratory Results 03/06/18 04:28 03/06/18 04:28 03/05/18 03/06/18 03/07/18 05:59 05:59 05:59 Intake Total 2600 Output Total 450 1300 Balance 2150 -1300 Blood cultures on March 03 and March 04 no growth - Physical Exam General Appearance: no apparent distress, obese EENT: pharynx normal, No scleral icterus, No thrush Respiratory: lungs clear Cardiac/Chest: systolic murmur Extremities: other (Patient's right lower extremity is casted; I am not able to take this off. His left foot is wrapped thoroughly; I did not unwrap this today as my colleague did this yesterday.) Abdomen: non-tender, soft Skin: No rash, No embolic lesions Neuro/Psych: no motor/sensory deficits, oriented x 3 ICD10 Worksheet Patient Problems: Problems Problem Status Onset Fever Acute Sepsis Acute CAD - Coronary arteriosclerosis Active Diabetic neuropathy Active History of - deep vein thrombosis Active Insulin-treated twv-ixymdtk-wgtierwfm diabetes mellitus Active 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 Chronic kidney disease stage 3 Acute Chronic renal insufficiency Acute Diabetic foot ulcer Acute Sepsis affecting skin Acute
[2018-03-06] MEDS: ATENOLOL 25 MG TAB PO SCH (10:02)
[2018-03-06] MEDS: SODIUM BICARBONATE 650 MG TAB PO SCH ×2 (11:40→20:32)
[2018-03-06] MEDS: EPOETIN ALFA 10,000 UNIT/ML VIAL SC SCH (11:41)
[2018-03-06] MEDS: PIPERACILLIN/TAZO 2.25 GM/DEX 50 ML IV SCH ×2 (11:45→17:57)
[2018-03-06] MEDS: ACETAMINOPHEN 325 MG TAB PO PRN (12:06)
--- NOTE | 2018-03-06 12:32 | GCON ---
NEPHROLOGY CONSULTATION DATE OF CONSULTATION: 03/06/2018 REFERRING PHYSICIAN: Jemma Lopez MD REASON FOR CONSULTATION: Proteinuric renal failure in the setting of diabetes. HISTORY OF PRESENT ILLNESS: The patient is known to us from a previous hospital admission. He is a very pleasant and bright, 62-year-old male with known chronic kidney disease, secondary to presumed d iabetic nephropathy. We did see him in consultation in 2016. At that time, he did have what was tho ught to be a baseline creatinine of 1.5 to 1.9. He did have acute renal failure in the setting of an infection. His creatinine peaked at 4.8, and eventually returned back to around 1.6 to 1.8. He was seen once in followup in our office and then has not had followup since. The patient now presents with evidence of a left lower extremity infection. He presented with a crea tinine of 2.7. He has received some IV fluids, and currently, his creatinine is 2.6. The patient is well informed relating to his health issues. He follows with Dr. Mark Kern at [facility] for his primary care. The patient states he did have a creatinine level drawn earlier in t he year that was in the 2s, so he is aware that he has been in stage 4 chronic kidney disease. The p atient has had poorly controlled diabetes in the past, but more recently it has been better. His cur rent level is 7.1. He states his blood pressure had been well controlled, but over the past month, i t has been elevated. He has had some mild lower extremity edema. The patient's most pressing health issues have been relating to his Charcot feet and lower extremity infections. He has been seeing Dr. English regularly and is being treated for this. The patient und erwent surgery on February 07 for a partial bone resection in both feet. In the 10 days prior to a dmission, he was having some fevers and chills. He did have cast removal, which did reveal some evid ence of left lower extremity cellulitis. The patient has also been having intermittent diarrhea. On admission, the patient was initiated on antibiotic therapy, including piperacillin and a dose of v ancomycin. The vancomycin has since been discontinued. He received some IV fluids, is in about 1 L positive fluid balance. These have been held. When the patient was admitted, his blood pressure was in the low 100 range. He presently is running around 150. As related to the above issues, we are asked by Dr. Lopez to assist the patient's renal diagnosis an d management. PAST MEDICAL HISTORY: 1. Stage 4 chronic kidney disease, secondary to presumed diabetic nephropathy. 2. History of MRSA bacteremia. 3. Coronary artery disease, status post stenting, followed by Dr. Haji at [facility]. 4. Diabetic retinopathy. 5. Diabetic neuropathy. 6. Charcot foot abnormalities. 7. Atrial fibrillation, status post ablation, on chronic anticoagulation. 8. Hypertension. 9. Hyperlipidemia. 10. History of DVT. 11. Obstructive sleep apnea, on 3 L nasal cannula at night. 12. History of C difficile colitis. 13. Hypothyroidism. PAST SURGICAL HISTORY: Includes: 1. Heart ablation. 2. Foot surgeries in 2013. 3. Coronary stent 1995. 4. Multiple additional foot surgeries and I and D's. 5. Right inguinal herniorrhaphy. CURRENT MEDICATIONS: Tylenol p.r.n., atenolol 25 mg daily, Wellbutrin SR 150 b.i.d., Cymbalta 30 mg daily, Tricor 145 mg daily, gabapentin 200 mg b.i.d., Synthroid 200 mcg daily, Zofran p.r.n., Protoni x daily, Zosyn 2.25 g q.6 hours, Xarelto 10 g daily. FAMILY HISTORY: Noncontributory. SOCIAL HISTORY: The patient was born in the [facility]. 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 He does not smoke cigarettes. He drinks 1 alcoholic drink a month. REVIEW OF SYSTEMS: He has had occasional headaches. He does have some issues with macular degenerat ion, diabetic retinopathy. He wears corrective lenses. He denies rhinitis or sore throat. He denie s cough or shortness of breath. He does not have chest pain or palpitations. He has had intermitten t abdominal pain, along with intermittent diarrhea. He does have urinary frequency at night. He has some lower extremity edema. He has the aforementioned issues with Charcot feet. Current left lower extremity cellulitis. He denies skin rashes. He has a history of both diabetes and thyroid disease . PHYSICAL EXAM: GENERAL: At time of exam, the patient is appropriate, alert. VITAL SIGNS: Temperat ure 36.7, pulse 71, blood pressure 150/83. HEENT: Eyes: Sclerae clear. Oropharynx clear. NECK: No jugular venous distention. No lymphadenopathy or thyromegaly. LUNGS: Clear to auscultation thro ughout all lung conway. CARDIOVASCULAR: Regular rhythm without gallops or rubs. ABDOMEN: Normoact dominguez bowel sounds. Nontender. No organomegaly. /RECTAL: Deferred. EXTREMITIES:. The patient gonzalez s 1+ bilateral edema extending to the knees. He has a cast on his right. The left cast has been rem jorge. There is a small area of erythema over the whitaker. His left toe areas are wrapped. NEURO: Pos itive for neuropathy. The patient's mental status is normal. LABORATORY DATA: White count 8.9, hematocrit 24.2, platelets 332. Sodium 139, potassium 5.4, bicarb 19, creatinine 1.3. Hemoglobin A1c 7.1. IMPRESSION/PLAN: 1. Proteinuric chronic kidney disease. At present, I suspect he is near his baseline creatinine, al though hopefully, he could improve some once his current medical issues are improved. The patient is aware he has stage 4 chronic kidney disease. He is aware this is a progressive issue. We will kyler lopez need to make plans for renal replacement therapy. For now, it is common for a patient to have acute kidney injury on his chronic kidney disease in the setting of diabetic kidney disease in the s etting of infection. The goal is to keep him appropriately intravascularly hydrated, while maintaini ng normal blood pressures and volume status. At this point, the patient's intravenous fluids have be en discontinued and this is appropriate. He may benefit from some diuretic, we will monitor him over the next 24 hours relating to this. The patient does have some mild hyperkalemia and acidosis. He is unlikely to tolerate angiotensin receptor blockade. We will place him on a potassium restriction and add in sodium bicarbonate therapy. We will check a postvoid residual. He has received vancomyci n, but this has been discontinued. We will continue to monitor and educate. 2. Anemia. The patient has adequate iron stores. We will begin erythropoietin therapy. 3. Hypertension. The patient's blood pressure has increased to 150. I would be permissive of this at the present time. We may need to add in calcium channel blockade pending further increases in blo od pressure. 4. Diabetes. The patient's control has improved. 5. Lower extremity cellulitis. He is being followed by Infectious Disease and Podiatry. He will re main on the Zosyn. Thank you for allowing us to participate in this gentleman's care. We will continue following closel y with you. /[id number]/MODL
--- NOTE | 2018-03-06 13:25 | ECHO ---
[email or web address] [address] [address] Main: [phone] Fax: Transthoracic Echocardiogram Name: ORTIZ MCKEON MR#: [id number] Study Date: 03/06/2018 Study Time: 11:06 AM Date of : 1955 Age: 62 year(s) Height: 182.9 cm (72 in.) Weight: 128.37 kg (283 lb.) BSA: 2.47 m2 Gender: Male Examination: Echo Indication: h/o fevers, ht murmur hematocrit 24 ?endocarditis Image Quality: Technically Difficult Contrast: Requested by: Sherry Hatch BP: 150 mmHg/83 mmHg Heart Rate: Rhythm: Indication: h/o fevers, ht murmur hematocrit 24 ?endocarditis Procedure Staff Outpatient Coder: Leesa Grigsby RDCS Reading Physician: Ken Covarrubias MD Requesting Provider: Conclusions: Normal size left ventricle. Mild to moderate LVH. EF is 63 %. No regional wall motion abnormality. Grade II diastolic dysfunction. The left atrium is mildly dilated. The right atrium is mildly dilated. Mild mitral valve regurgitation is present. Aortic sclerosis is present. Mild aortic valve regurgitation is present. Mild tricuspid regurgitation is present. Right ventricular systolic pressure measures 65mmHg. The pulmonary artery pressure is moderately to severely increased. No obvious valvular vegetations. Consider JANIS if there is a high clinical index of suspicion. Measurements: Chambers Valvular Assessment AV/MV Valvular Assessment TV/PV Normal Normal Normal Name Value Range Name Value Range Name Value Range Ao Justine (MM): 3.7 cm (2.2 cm-3.7 AV Vmax: 1.76 m/s (1 m/s-1.7 TR Vmax: 3.71 mm/s ( - ) cm) m/s) TR PGmax: 55 mmHg ( - ) IVSd (2D): 1.4 cm (0.6 cm-1.1 AV maxP mmHg ( - ) syst. PAP: 65 mmHg ( - ) cm) LVOT Vmax: 1.32 m/s (0.7 m/s-1.1 PV Vmax: 1.03 m/s (0.6 m/s-0.9 LVDd (2D): 4.3 cm (4.2 cm-5.9 m/s) m/s) cm) THOMAS (Vmax): 2.9 cm2 ( - ) PV PGmax: 4 mmHg ( - ) LVDs (2D): 2.4 cm (2.1 cm-4 MV E Vmax: 1.28 m/s ( - ) cm) MV A Vmax: 0.75 m/s ( - ) LVPWd (2D): 1.4 cm (0.6 cm-1 MV E/A: 1.71 ( - ) cm) Patient: ORTIZ MCKEON Study Date: 03/06/2018 Page 1 of 2 11:06 AM LVOTd 2.2 cm 2.2 cm mm LVEF (BP): 63 % (>=55 %) RVDd(2D): 3.2 cm (1.9 cm-3.8 cmmm) Continued Measurements: Chambers Valvular Assessment AV/MV Valvular Assessment TV/PV Name Value Name Value Name Value LADs Lon.9 cm MV DecTime: 197 m/s CVP (est.): 10 mmHg LA Area: 28.4 cm2 MV E' Septal: 0.05 m/s LA Volume: 88 ml MV E/E' Septal: 24.30 LA Volume Index: 35.6 ml/m2 MV E/E' Lateral: 16.80 TAPSE: 2.4 cm RA Area: 20.3 cm2 Additional Vessels Name Value Ao Ascendin.0 cm Findings: Left Ventricle: Normal size left ventricle. Mild to moderate LVH. Normal global systolic LV function. EF is 63 %. No regional wall motion abnormality. Grade II diastolic dysfunction. Right Ventricle: Normal size right ventricle. Normal RV function. Left Atrium: The left atrium is mildly dilated. Right Atrium: The right atrium is mildly dilated. Mitral Valve: The mitral valve is normal in appearance and function. There is mild thickening of the mitral valve leaflets. Mild mitral valve regurgitation is present. No mitral stenosis is present. No obvious vegetation however it is difficult to rule out due to poor acoustical windows secondary to body habitus. Aortic Valve: The aortic valve is tri-leaflet. Aortic sclerosis is present. Possible lamble noted in the parasternal long axis view of the coronary cusp. No obvious vegetation however it is difficult to rule out due to poor acoustical windows due to body habitus. Mild aortic valve regurgitation is present. No aortic valve stenosis is present. Tricuspid Valve: The tricuspid valve is normal in appearance and function. Mild tricuspid regurgitation is present. Right ventricular systolic pressure measures 65mmHg. The pulmonary artery pressure is moderately to severely increased. No tricuspid valve vegetation. Pulmonic Valve: Pulmonary valve not well visualized. Trivial pulmonic valve regurgitation. Aorta: Normal size aortic root measuring 3.7 cm. Mildly dilated ascending aorta measuring 4.0 cm. IVC: The IVC is dilated. There is greater suzanne 50% respiratory excursion. Pericardium: No pericardial effusion. (No Signature Object) Patient: ORTIZ MCKEON Study Date: 03/06/2018 Page 2 of 2 11:06 AM [id number]
[2018-03-06] MEDS ORDERED: PNEUMOCOCCAL 0.5ML VACCINE VIAL IM ONE (13:30)
[2018-03-07] MEDS: LEVOTHYROXINE 200 MCG TAB PO SCH (05:41)
[2018-03-07] MEDS: PIPERACILLIN/TAZO 2.25 GM/DEX 50 ML IV SCH ×4 (05:41→19:23)
--- NOTE | 2018-03-07 08:59 | PCMIDPN ---
Assessment/Plan: 1. History of fevers and leukocytosis in patient multiple medical problems status post foot surgery in early February: Because the patient's inflammatory markers are quite elevated, and he seems to have responded to antibiotics during this hospital admission with a decrease in leukocytosis and fevers, I feel that it is prudent to obtain MRIs (without contrast given renal insufficiency) of both feet to further evaluate for evidence of underlying osteomyelitis or abscess. The patient agrees with this plan. West Nile serologies are pending, although this seems very unlikely. He does not have any symptoms suggestive of an autoimmune process, or vasculitis. Transthoracic echocardiogram without evidence of vegetations. I have placed a call to Dr. English, asking him to please remove the cast on the right side. ( called geospatial technician; cast needs to come off or will obscure pictures) Over 35 min spent with this patient today. 03/07/18 09:01 Subjective: Patient states he feels about the same. Had a difficult night sleeping. No diarrhea. Had a long conversation with patient and his today about pursuing MRIs of his feet, and explained rationale behind my thinking. They would like to pursue this. Objective: Zosyn 2.25 g IV q.6 hours day 4 T-max 37 degrees for Vital Signs Temp Pulse Resp BP Pulse Ox 36.8 C 67 16 141/78 H 97 03/07/18 07:35 03/07/18 07:35 03/07/18 07:35 03/07/18 07:35 03/07/18 07:35 Laboratory Results 03/06/18 09:53 03/07/18 05:00 03/06/18 03/07/18 03/08/18 05:59 05:59 05:59 Intake Total 350 Output Total 1300 1475 Balance -1300 -1125 ESR 90 MM/HR (0-20) H 03/06/18 09:53 C-Reactive Protein 180.9 mg/L (<10.0) H 03/06/18 09:46 Admission blood cultures negative - Physical Exam General Appearance: no apparent distress, obese EENT: pharynx normal Extremities: other (Left lower extremity wrapped; I did not take dressing down. Right lower extremity in cast.) Skin: No rash ICD10 Worksheet Patient Problems: Problems Problem Status Onset Fever Acute Sepsis Acute CAD - Coronary arteriosclerosis Active Diabetic neuropathy Active History of - deep vein thrombosis Active Insulin-treated qyb-cdajwps-trgvvlxqx diabetes mellitus Active 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 Chronic kidney disease stage 3 Acute Chronic renal insufficiency Acute Diabetic foot ulcer Acute Sepsis affecting skin Acute
[2018-03-07] MEDS: FENOFIBRATE 145 MG TAB PO SCH (09:11)
[2018-03-07] MEDS: DULoxetine 30 MG CAP PO SCH (09:11)
[2018-03-07] MEDS: PANTOPRAZOLE SODIUM 40 MG TAB PO SCH (09:11)
[2018-03-07] MEDS: buPROPion SR 150 MG TAB PO SCH ×2 (09:12→19:59)
[2018-03-07] MEDS: ATENOLOL 25 MG TAB PO SCH (09:12)
[2018-03-07] MEDS: GABAPENTIN 100 MG CAP PO SCH ×2 (09:12→19:59)
[2018-03-07] MEDS: RIVAROXABAN 10 MG TAB PO SCH (09:12)
[2018-03-07] MEDS: SODIUM BICARBONATE 650 MG TAB PO SCH ×2 (09:12→19:59)
[2018-03-07] MEDS: INSULIN REGULAR HUMAN 100 UNIT/ML UNIT SC SCH ×4 (09:13→22:47)
[2018-03-07] MEDS: Insulin Degludec [Tresiba Flextouch U-100] SQ SCH (09:14)
--- NOTE | 2018-03-07 11:39 | ASMTCMCOM ---
CM Note CM Note Notes: Spoke w/, pt going for MRI of both feet to check for osteomylitis/abscess. If positive, may need IV abx. CM met with pt and because they had questions about getting a newer wheelchair. Pt's is going to have shoulder surgery soon and needs a wheelchair that will be easier to manoeuvre. CM gave her a loan closet list and OT to go and speak with her about medical supply places. Pt is now TBD until we have a clearer plan of pt's needs. Otherwise he will dc home with . Date Signed: 03/07/2018 11:38 AM Electronically Signed By:Maria Ines Mari RN
--- NOTE | 2018-03-07 15:28 | SOAPPROG ---
SOAP Progress Note Assessment/Plan: Assessment: 1. crf: presumed from DM, likely at or near b/l creat. Sees nephrology at [facility]. ARB on hold. 2. hyperK: mild/chronic. ARB on hold, po bicarb started yesterday. 3. met acidosis: po bicarb started as above. 4. htn: cont to hold ARB. 5. LE infection: for add'l imaging. 6. anemia: on epo Plan: 03/07/18 15:25 Subjective: No particular c/o. Recalls being told to follow low-K diet by [facility] physicians in the past. Objective: Vital Signs Temp Pulse Resp BP Pulse Ox 36.8 C 66 16 145/73 H 98 03/07/18 07:35 03/07/18 11:29 03/07/18 11:29 03/07/18 11:29 03/07/18 11:29 Laboratory Results 03/06/18 09:53 03/07/18 05:00 03/06/18 03/07/18 03/08/18 05:59 05:59 05:59 Intake Total 350 Output Total 1300 1475 700 Balance -1300 -1125 -700 PT 16.2 SEC (12.0-15.0) H 03/04/18 14:25 INR 1.28 (0.83-1.16) H 03/04/18 14:25 Physical Exam - Physical Exam General Appearance: no apparent distress Respiratory: lungs clear (anteriorly) Cardiac/Chest: regular rate, rhythm Abdomen: non-tender, soft Extremities: pedal edema (trace) ICD10 Worksheet Patient Problems: Problems Problem Status Onset Fever Acute Sepsis Acute CAD - Coronary arteriosclerosis Active Diabetic neuropathy Active History of - deep vein thrombosis Active Insulin-treated gdh-wrpghxj-ojwhkhejs diabetes mellitus Active 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 Chronic kidney disease stage 3 Acute Chronic renal insufficiency Acute Diabetic foot ulcer Acute Sepsis affecting skin Acute
--- NOTE | 2018-03-07 15:59 | HOSPPROG ---
Hospitalist Progress Note Assessment/Plan: * Severe Sepsis - suspect feet as source -MRI bilateral feet ordered -Dr. Garcia to remove cast on right for MRI -empiric IV Zosyn -ESR 90, concerning for osteomyelitis * Acute on chronic renal failure -back to baseline creatinine 2.2-2.8 -holding ARB -consider lasix * Hyperkalemia -hold ARB -low potassium diet -oral bicarb * Acute on chronic diastolic CHF * Severe pulmonary HTN - suspect due to VENANCIO -oxygen at night 3L * DM neuropathy with Charcot feet and chronic ulceration s/p recent debridement bilaterally -casting to improve compliance with NWB * DM -U-100 insulin * Afib s/p ablation -Xarelto * CAD/stents -LE evaluation for PVD would be beneficial but CKD limits ability to do CTA -consider CHELY once casts are off Subjective: No new complaints. Objective: Vital Signs Temp Pulse Resp BP Pulse Ox 36.8 C 66 16 145/73 H 98 03/07/18 07:35 03/07/18 11:29 03/07/18 11:29 03/07/18 11:29 03/07/18 11:29 Laboratory Results 03/06/18 09:53 03/07/18 05:00 03/06/18 03/07/18 03/08/18 05:59 05:59 05:59 Intake Total 350 Output Total 1300 1475 700 Balance -1300 -1125 -700 PT 16.2 SEC (12.0-15.0) H 03/04/18 14:25 INR 1.28 (0.83-1.16) H 03/04/18 14:25 CT abd - negative case d/w Dr. Hatch infectious disease regarding MRI plan - Physical Exam Constitutional: no apparent distress, appears nourished, not in pain Cardiovascular: regular rate and rhythym, no murmur, rub, or gallop, edema ( left > right) Respiratory: no respiratory distress, no rales or rhonchi, clear to auscultation Gastrointestinal: normoactive bowel sounds, soft, non-tender abdomen, no palpable masses Skin: no rashes or abrasions, no fluctuance, no induration Neurologic: AAOx3, sensation intact bilaterally Psychiatric: interacting appropriately, not anxious, not encephalopathic, thought process linear ICD10 Worksheet Patient Problems: Problems Problem Status Onset Fever Acute Sepsis Acute CAD - Coronary arteriosclerosis Active Diabetic neuropathy Active History of - deep vein thrombosis Active Insulin-treated uqm-ajzvrxh-yhosnudhu diabetes mellitus Active 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 Chronic kidney disease stage 3 Acute Chronic renal insufficiency Acute Diabetic foot ulcer Acute Sepsis affecting skin Acute
[2018-03-08] MEDS: PIPERACILLIN/TAZO 2.25 GM/DEX 50 ML IV SCH ×5 (00:10→23:20)
[2018-03-08] MEDS: LEVOTHYROXINE 200 MCG TAB PO SCH (05:36)
[2018-03-08] MEDS: INSULIN REGULAR HUMAN 100 UNIT/ML UNIT SC SCH ×4 (08:15→21:02)
[2018-03-08] MEDS: GABAPENTIN 100 MG CAP PO SCH ×2 (08:15→20:28)
[2018-03-08] MEDS: RIVAROXABAN 10 MG TAB PO SCH (08:16)
[2018-03-08] MEDS: DULoxetine 30 MG CAP PO SCH (08:16)
[2018-03-08] MEDS: buPROPion SR 150 MG TAB PO SCH ×2 (08:16→20:28)
[2018-03-08] MEDS: PANTOPRAZOLE SODIUM 40 MG TAB PO SCH (08:17)
[2018-03-08] MEDS: ATENOLOL 25 MG TAB PO SCH (08:17)
[2018-03-08] MEDS: FENOFIBRATE 145 MG TAB PO SCH (08:18)
[2018-03-08] MEDS: SODIUM BICARBONATE 650 MG TAB PO SCH ×2 (08:18→20:28)
[2018-03-08] MEDS: MUPIROCIN 2% 22 GM OINT TP SCH (08:20)
[2018-03-08] MEDS: Insulin Degludec [Tresiba Flextouch U-100] SQ SCH (08:21)
--- NOTE | 2018-03-08 10:54 | PCMIDPN ---
Assessment/Plan: 1. History of fevers and leukocytosis in patient with multiple medical problems status post foot surgery in early February: Continue Zosyn for now and await review of bilateral foot MRIs. I did go down to try and look at these with Dr. Carmichael. They have not been read yet, and he needs time to pore over them carefully. Told the patient to stay tuned. West Nile pending, although this seems very unlikely. Patient has responded clinically to antibiotics, with decreased fevers and improvement in leukocytosis suggesting a bacterial process. CT of the abdomen was negative. 03/08/18 10:53 Subjective: Says that he is starting to feel better overall, with improved energy. Sincerely appreciate Dr. English coming into the hospital in removing the patient's right cast. Both of his feet were rewrapped by Dr. English last night. No diarrhea on the antibiotics. Objective: Zosyn 2.25 g IV q.6 hours day 5 T-max 37.6 degrees Vital Signs Temp Pulse Resp BP Pulse Ox 36.7 C 64 16 143/88 H 96 03/08/18 07:33 03/08/18 07:33 03/08/18 07:33 03/08/18 07:33 03/08/18 07:33 Laboratory Results 03/06/18 09:53 03/08/18 04:50 03/07/18 03/08/18 03/09/18 05:59 05:59 05:59 Intake Total 350 Output Total 1475 1325 200 Balance -1125 -1325 -200 ESR 90 MM/HR (0-20) H 03/06/18 09:53 C-Reactive Protein 180.9 mg/L (<10.0) H 03/06/18 09:46 No new microbiology West Nile serologies pending - Physical Exam General Appearance: no apparent distress, obese EENT: No thrush Extremities: other (Bilateral feet are wrapped with fresh dressings) Skin: No rash ICD10 Worksheet Patient Problems: Problems Problem Status Onset Fever Acute Sepsis Acute CAD - Coronary arteriosclerosis Active Diabetic neuropathy Active History of - deep vein thrombosis Active Insulin-treated sny-mxtdvli-srlniwdfz diabetes mellitus Active 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 Chronic kidney disease stage 3 Acute Chronic renal insufficiency Acute Diabetic foot ulcer Acute Sepsis affecting skin Acute
--- NOTE | 2018-03-08 15:22 | HOSPPROG ---
Hospitalist Progress Note Assessment/Plan: * Severe Sepsis - suspect feet as source -MRI bilateral feet pending -empiric IV Zosyn -ESR 90, concerning for osteomyelitis * Acute on chronic renal failure -back to baseline creatinine 2.2-2.8 -holding ARB -consider lasix * Hyperkalemia -hold ARB -low potassium diet -oral bicarb * Acute on chronic diastolic CHF * Severe pulmonary HTN - suspect due to VENANCIO -oxygen at night 3L * DM neuropathy with Charcot feet and chronic ulceration s/p recent debridement bilaterally -casting to improve compliance with NWB * DM -U-100 insulin * Afib s/p ablation -Xarelto * CAD/stents -LE evaluation for PVD would be beneficial but CKD limits ability to do CTA -consider CHELY once casts are off Subjective: No new complaints Objective: Vital Signs Temp Pulse Resp BP Pulse Ox 36.8 C 61 16 142/84 H 98 03/08/18 11:11 03/08/18 11:11 03/08/18 11:11 03/08/18 11:11 03/08/18 11:11 Laboratory Results 03/06/18 09:53 03/08/18 04:50 03/07/18 03/08/18 03/09/18 05:59 05:59 05:59 Intake Total 350 Output Total 1475 1325 400 Balance -1125 -1325 -400 PT 16.2 SEC (12.0-15.0) H 03/04/18 14:25 INR 1.28 (0.83-1.16) H 03/04/18 14:25 - Physical Exam Constitutional: no apparent distress, appears nourished, not in pain Cardiovascular: regular rate and rhythym, no murmur, rub, or gallop, edema (left ) Respiratory: no respiratory distress, no rales or rhonchi, clear to auscultation Gastrointestinal: normoactive bowel sounds, soft, non-tender abdomen, no palpable masses Skin: no rashes or abrasions, no fluctuance, no induration Neurologic: AAOx3, sensation intact bilaterally Psychiatric: interacting appropriately, not anxious, not encephalopathic, thought process linear ICD10 Worksheet Patient Problems: Problems Problem Status Onset MRSA - Methicillin resistant Staphylococcus aureus infection Active Insulin-treated hdn-fimzcwm-fckgazkbk diabetes mellitus Active Chronic kidney disease stage 3 Acute CAD - Coronary arteriosclerosis Active Paroxysmal atrial flutter Active History of - deep vein thrombosis Active Diabetic neuropathy Active Diabetic foot ulcer Acute Sepsis affecting skin Acute Chronic renal insufficiency Acute Fever Acute Sepsis Acute
--- NOTE | 2018-03-08 17:26 | SOAPPROG ---
SOAP Progress Note Assessment/Plan: Assessment: 1. crf: presumed from DM, likely at or near b/l creat. Sees nephrology at [facility]. ARB on hold. 2. hyperK: mild/chronic. ARB on hold, po bicarb started 2 days ago. 3. met acidosis: po bicarb started as above. 4. htn: cont to hold ARB. 5. LE infection: official mri read pending but reportedly concerning for osteo. If access needed for outpt abx, IJ line of some sort would be much preferred to PICC in interest of preserving veins for dialysis access in future. 6. anemia: on epo Plan: 03/07/18 15:25 03/08/18 17:24 Subjective: No new c/o. Objective: Vital Signs Temp Pulse Resp BP Pulse Ox 36.8 C 62 12 127/71 H 97 03/08/18 15:32 03/08/18 15:32 03/08/18 15:32 03/08/18 15:32 03/08/18 15:32 Laboratory Results 03/06/18 09:53 03/08/18 04:50 03/07/18 03/08/18 03/09/18 05:59 05:59 05:59 Intake Total 350 Output Total 1475 1325 750 Balance -1125 -1325 -750 PT 16.2 SEC (12.0-15.0) H 03/04/18 14:25 INR 1.28 (0.83-1.16) H 03/04/18 14:25 Physical Exam - Physical Exam General Appearance: no apparent distress Respiratory: lungs clear (anteriorly) Cardiac/Chest: regular rate, rhythm Abdomen: non-tender, soft Extremities: pedal edema ICD10 Worksheet Patient Problems: Problems Problem Status Onset Fever Acute Sepsis Acute CAD - Coronary arteriosclerosis Active Diabetic neuropathy Active History of - deep vein thrombosis Active Insulin-treated dci-qrwhzha-hdenjqscr diabetes mellitus Active 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 Chronic kidney disease stage 3 Acute Chronic renal insufficiency Acute Diabetic foot ulcer Acute Sepsis affecting skin Acute
[2018-03-09] MEDS: PIPERACILLIN/TAZO 2.25 GM/DEX 50 ML IV SCH (05:27)
[2018-03-09] MEDS: LEVOTHYROXINE 200 MCG TAB PO SCH (05:27)
[2018-03-09 05:41] LABS: PLATELET COUNT 356 10^3/uL (150-400)
[2018-03-09] MEDS: INSULIN REGULAR HUMAN 100 UNIT/ML UNIT SC SCH ×4 (07:20→21:27)
[2018-03-09] MEDS: ATENOLOL 25 MG TAB PO SCH (07:23)
[2018-03-09] MEDS: RIVAROXABAN 10 MG TAB PO SCH (07:24)
[2018-03-09] MEDS: DULoxetine 30 MG CAP PO SCH (07:24)
[2018-03-09] MEDS: GABAPENTIN 100 MG CAP PO SCH ×2 (07:24→20:23)
[2018-03-09] MEDS: buPROPion SR 150 MG TAB PO SCH ×2 (07:25→20:23)
[2018-03-09] MEDS: FENOFIBRATE 145 MG TAB PO SCH (07:25)
[2018-03-09] MEDS: SODIUM BICARBONATE 650 MG TAB PO SCH ×2 (07:25→20:23)
[2018-03-09] MEDS: PANTOPRAZOLE SODIUM 40 MG TAB PO SCH (07:25)
[2018-03-09] MEDS: Insulin Degludec [Tresiba Flextouch U-100] SQ SCH (07:28)
--- NOTE | 2018-03-09 09:54 | PCMIDPN ---
Assessment/Plan: 1. History of fevers and leukocytosis in patient with multiple medical problems status post foot surgery in early February: Printed out copies of the patient's MRIs for him to review. Unfortunately, it appears that he has osteomyelitis in bones of his left foot, as well as an abscess that will need to be drained. He also may have osteomyelitis of the great toe of his right foot. I spoke with Dr. English, who will see the patient tomorrow and schedule an incision and drainage and debridement. Patient will need 6 weeks of intravenous antibiotics. Hopefully will be able to get microbiology data from upcoming surgery to guide us with antibiotic therapy moving forward. For now, continue Zosyn. Also discussed long-term access with Dr. Krishna Proctor; he prefers a tunneled IJ PICC, which I understand we are now performing at this hospital. Will need to speak to the interventionalists tomorrow. Patient understands the plan. Subjective: In good spirits. Reviewed MRI results with him today. No diarrhea. Objective: No fevers Zosyn 2.25 g IV q.6 hours day 6 Vital Signs Temp Pulse Resp BP Pulse Ox 36.8 C 59 L 14 144/82 H 97 03/09/18 07:13 03/09/18 07:13 03/09/18 07:13 03/09/18 07:13 03/09/18 07:13 Laboratory Results 03/09/18 05:10 03/09/18 05:10 03/08/18 03/09/18 03/10/18 05:59 05:59 05:59 Intake Total 100 Output Total 1325 900 150 Balance -1325 -800 -150 ESR 90 MM/HR (0-20) H 03/06/18 09:53 C-Reactive Protein 180.9 mg/L (<10.0) H 03/06/18 09:46 No new microbiology - Physical Exam General Appearance: no apparent distress, obese EENT: pharynx normal, No thrush Extremities: other (Both feet are wrapped) Skin: No rash ICD10 Worksheet Patient Problems: Problems Problem Status Onset Fever Acute Sepsis Acute CAD - Coronary arteriosclerosis Active Diabetic neuropathy Active History of - deep vein thrombosis Active Insulin-treated umr-dxoyymr-yfegfokqo diabetes mellitus Active 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 Chronic kidney disease stage 3 Acute Chronic renal insufficiency Acute Diabetic foot ulcer Acute Sepsis affecting skin Acute
--- NOTE | 2018-03-09 10:43 | ASMTCMCOM ---
CM Note CM Note Notes: CM spoke with floor RN, patient to be treated for osteomyelitis and will require 6 weeks of antibiotics. Consult tomorrow with Dr. English, may get PICC placement. CM to follow. Date Signed: 03/09/2018 10:41 AM Electronically Signed By:Lizette Pierce
[2018-03-09] MEDS: MUPIROCIN 2% 22 GM OINT TP SCH (10:51)
[2018-03-09] MEDS: MEROPENEM 1 GM in NS 100 ML IV SCH ×2 (11:50→23:45)
[2018-03-09 15:28] LABS: WEST NILE VIRUS IGG Negative (Negative); WEST NILE VIRUS IGM Negative (Negative)
--- NOTE | 2018-03-09 16:27 | HOSPPROG ---
Hospitalist Progress Note Assessment/Plan: * Severe Sepsis - abscess and osteomyelitis bilateral feet -allergic rash with IV Zosyn - now on meropenem -to OR with Dr. Garcia to I&D abscess * Acute on chronic renal failure -back to baseline creatinine 2.2-2.8 -holding ARB * Hyperkalemia -hold ARB -low potassium diet -oral bicarb * Acute on chronic diastolic CHF * Severe pulmonary HTN - suspect due to VENANCIO -oxygen at night 3L * DM neuropathy with Charcot feet and chronic ulceration s/p recent debridement bilaterally -casting to improve compliance with NWB * DM -U-100 insulin * Afib s/p ablation -Xarelto * CAD/stents -LE evaluation for PVD would be beneficial but CKD limits ability to do CTA -check CHELY Subjective: No new complaints. Objective: Vital Signs Temp Pulse Resp BP Pulse Ox 36.8 C 62 14 122/74 H 94 03/09/18 15:07 03/09/18 15:07 03/09/18 15:07 03/09/18 15:07 03/09/18 15:07 Laboratory Results 03/09/18 05:10 03/09/18 05:10 03/08/18 03/09/18 03/10/18 05:59 05:59 05:59 Intake Total 100 Output Total 1325 900 400 Balance -1325 -800 -400 PT 16.2 SEC (12.0-15.0) H 03/04/18 14:25 INR 1.28 (0.83-1.16) H 03/04/18 14:25 MRI feet - abscess and osteomyelitis bilaterally d/w Dr. Hatch regarding PICC line requests by renal and drug rash and surgery need. She spoke to Dr. Garcia - Physical Exam Constitutional: no apparent distress, appears nourished, not in pain Cardiovascular: regular rate and rhythym, no murmur, rub, or gallop Respiratory: no respiratory distress, no rales or rhonchi, clear to auscultation Gastrointestinal: normoactive bowel sounds, soft, non-tender abdomen, no palpable masses Skin: no rashes or abrasions, no fluctuance, no induration, other (both feet wrapped) Neurologic: AAOx3, sensation intact bilaterally Psychiatric: interacting appropriately, not anxious, not encephalopathic, thought process linear ICD10 Worksheet Patient Problems: Problems Problem Status Onset MRSA - Methicillin resistant Staphylococcus aureus infection Active Insulin-treated rcv-cbfztsv-wzdzpaosl diabetes mellitus Active Chronic kidney disease stage 3 Acute CAD - Coronary arteriosclerosis Active Paroxysmal atrial flutter Active History of - deep vein thrombosis Active Diabetic neuropathy Active Diabetic foot ulcer Acute Sepsis affecting skin Acute Chronic renal insufficiency Acute Fever Acute Sepsis Acute
--- NOTE | 2018-03-09 17:08 | SOAPPROG ---
SOAP Progress Note Assessment/Plan: Assessment: 1. crf: presumed from DM, very stable and likely at or near b/l creat. Sees nephrology at [facility] but would like to transfer back to our [place] office, he has my card. ARB on hold, I would cont to hold this until reevaluated as outpt. 2. hyperK: mild/chronic. ARB on hold, po bicarb started. Anticipate resuming arb as outpt but would cont to hold here. 3. met acidosis: resolved with po bicarb. 4. htn: controlled, cont to hold ARB on d/c as above. 5. LE infection: osteo on mri, for debridement. IJ line of some sort would be much preferred to PICC in interest of preserving veins for dialysis access in future; d/w ID. 6. anemia: on epo will sign off, please call with questions. Plan: 03/07/18 15:25 03/08/18 17:24 03/09/18 17:04 Subjective: No new c/o. Objective: Vital Signs Temp Pulse Resp BP Pulse Ox 36.8 C 62 14 122/74 H 94 03/09/18 15:07 03/09/18 15:07 03/09/18 15:07 03/09/18 15:07 03/09/18 15:07 Laboratory Results 03/09/18 05:10 03/09/18 05:10 03/08/18 03/09/18 03/10/18 05:59 05:59 05:59 Intake Total 100 Output Total 1325 900 400 Balance -1325 -800 -400 PT 16.2 SEC (12.0-15.0) H 03/04/18 14:25 INR 1.28 (0.83-1.16) H 03/04/18 14:25 Physical Exam - Physical Exam General Appearance: no apparent distress Respiratory: lungs clear (anteriorly) Cardiac/Chest: regular rate, rhythm Abdomen: non-tender, soft Extremities: pedal edema ICD10 Worksheet Patient Problems: Problems Problem Status Onset MRSA - Methicillin resistant Staphylococcus aureus infection Active Insulin-treated mnp-enfduzs-ulwnwqqlb diabetes mellitus Active Chronic kidney disease stage 3 Acute CAD - Coronary arteriosclerosis Active Paroxysmal atrial flutter Active History of - deep vein thrombosis Active Diabetic neuropathy Active Diabetic foot ulcer Acute Sepsis affecting skin Acute Chronic renal insufficiency Acute Fever Acute Sepsis Acute
[2018-03-09] MEDS: diphenhydrAMINE 25 MG CAP PO PRN ×2 (17:51→23:45)
[2018-03-10] MEDS: diphenhydrAMINE 25 MG CAP PO PRN (05:10)
[2018-03-10] MEDS: LEVOTHYROXINE 200 MCG TAB PO SCH (05:10)
[2018-03-10] MEDS: INSULIN REGULAR HUMAN 100 UNIT/ML UNIT SC SCH ×4 (08:24→22:29)
[2018-03-10] MEDS: RIVAROXABAN 10 MG TAB PO SCH (09:28)
[2018-03-10] MEDS: SODIUM BICARBONATE 650 MG TAB PO SCH ×2 (09:36→22:27)
[2018-03-10] MEDS: GABAPENTIN 100 MG CAP PO SCH ×2 (09:36→22:27)
[2018-03-10] MEDS: DULoxetine 30 MG CAP PO SCH (09:36)
[2018-03-10] MEDS: FENOFIBRATE 145 MG TAB PO SCH (09:36)
[2018-03-10] MEDS: PANTOPRAZOLE SODIUM 40 MG TAB PO SCH (09:36)
[2018-03-10] MEDS: buPROPion SR 150 MG TAB PO SCH ×2 (09:36→22:27)
[2018-03-10] MEDS: ATENOLOL 25 MG TAB PO SCH (09:36)
[2018-03-10] MEDS: Insulin Degludec [Tresiba Flextouch U-100] SQ SCH (09:40)
[2018-03-10] MEDS: MUPIROCIN 2% 22 GM OINT TP SCH (09:53)
--- NOTE | 2018-03-10 10:50 | WOCRNPDOC ---
WOCRN Advanced Assessment Note - Skin Integrity Problem, Advanced Assess Right Anterior Lower Leg Pressure Injury Dressing Type: Allevyn Life Dressing Description: Clean/Dry, Intact Exudate Amount: None Integumentary Issue Intervention: Visualized Under Dressing Linda Wound Tissue: Blanching, Erythema Wound Bed Constitution: Red/[place] - Non Granular Tissue (100%) Site Measurement - Head-to-Toe Length X Width X Depth (cm): 1x1.5x0.1 Pressure Injury Stage: Stage 2 Pressure Injury Present on Admit: Yes Skin Integrity Problem Comment: Per RN from where total contact cast that patient was admitted with. No need for wound care follow up. Left anterior leg has blanching erythema; no pressure injury present. Wound is healing and there are no concerns.
[2018-03-10] MEDS: DIPHENHYDRAMINE CREAM TP PRN (11:20)
[2018-03-10] MEDS: MEROPENEM 1 GM in NS 100 ML IV SCH (11:21)
[2018-03-10] MEDS ORDERED: ceFAZolin 1 GM/5 ML SYR ONE (13:18)
[2018-03-10] MEDS ORDERED: BUPIVACAINE 0.25% 30 ML SDV ONE (13:18)
[2018-03-10] MEDS ORDERED: LIDOCAINE 1% 300 MG/30 ML SDV ONE (13:18)
[2018-03-10] MEDS ORDERED: NS 1,000 ML IV ONE (13:40)
[2018-03-10] MEDS ORDERED: MIDAZOLAM 2 MG/2 ML VIAL ONE (13:58)
[2018-03-10] MEDS ORDERED: MIDAZOLAM 2 MG/2 ML VIAL IVP ONE (14:02)
--- NOTE | 2018-03-10 14:02 | PDANEPAE ---
ANE Past Medical History - Cardiovascular History Hx Hypertension: Yes Hx Arrhythmias: Yes Hx Coronary Artery / Peripheral Vascular Disease: Yes Hx CHF / Valvular Disease: No Hx Palpitations: No Cardiovascular History Comment: A-FIB AND BLOD CLOT IN 1 OF 2014 - Pulmonary History Hx COPD: No Hx Asthma/Reactive Airway Disease: No Hx Recent Upper Respiratory Infection: No Hx Oxygen in Use at Home: Yes O2 in Use at Home (L/minute): 3 Hx Sleep Apnea: Yes Sleep Apnea Screening Result - Last Documented: Positive Pulmonary History Comment: VENANCIO - wears cPAP 'sometimes' - uses O2 'when I wear it". Had a PE in 1999, - Neurologic History Hx Cerebrovascular Accident: No Hx Seizures: No Hx Dementia: No Neurologic History Comment: DIABETIC NEUROPATHY - Endocrine History Hx Diabetes: Yes Endocrine History Comment: INSULIN DEPEN SINCE 1989. HYPOTHYROID - Renal History Hx Renal Disorders: Yes Renal History Comment: 32% kindey function. was hospitalized in Jul 2016 w/ renal failure. had been on dialysis for a week in 2007 while hospitalized. frequency - Liver History Hx Hepatic Disorders: No - Neurological & Psychiatric Hx Hx Neurological and Psychiatric Disorders: Yes Neurological / Psychiatric History Comment: Depression - Cancer History Hx Cancer: No - Congenital Disorder History Hx Congenital Disorders: No - GI History Hx Gastrointestinal Disorders: Yes Gastrointestinal History Comment: Hiatial Hernia. Acid reflux. Intermittent diarrhea - Other Health History Other Health History: PREV CELLULITIS,OSTEOMYELITIS. HAS ON BILATERAL CASTS ON FEET. wears glasses. wears - Chronic Pain History Chronic Pain: No - Surgical History Prior Surgeries: HEART (ABLATION) 06/2014. I&D LT FOOT EXC 5TH METATERSAL 2013. STENT 1995. LT FOOT HAMMERTOE AND BUNION. I&D RT FOOT 05/2011. RT FOOT RECONSTRUCTIVE SURG. MULTIPLE I&D'S. REMVL BONE LT FOOT. RT ING HERNIA. RT FOOT ORIF WITH POST HARDWARE REMVL ANE Review of Systems Review of Systems: ANE Patient History - Allergies Allergies/Adverse Reactions: piperacillin [From Zosyn] Allergy (Verified 03/09/18 11:20) Rash tazobactam [From Zosyn] Allergy (Verified 03/09/18 11:20) Rash CATS Allergy (Mild, Uncoded 01/27/18 12:08) ITCHING/RASH - Home Medications Home Medications: Atenolol [Tenormin 25 mg (*)] 25 mg PO DAILY 03/04/18 [Last Taken 03/03/18] Duloxetine HCl [Cymbalta] 30 mg PO DAILY 03/04/18 [Last Taken Unknown] Fenofibrate [Tricor 145 mg (*)] 145 mg PO DAILY 03/04/18 [Last Taken 03/03/18] Gabapentin [Neurontin 100 MG (*)] 200 mg PO BID 03/04/18 [Last Taken 03/03/18] Herbals/Supplements -Info Only 1 ea PO DAILY 03/04/18 [Last Taken Unknown] Insulin Degludec [Tresiba Flextouch U-100] 80 - 85 unit SQ DAILY 03/04/18 [Last Taken Unknown] Levothyroxine [Synthroid 200 mcg (*)] 200 mcg PO DAILY06 03/04/18 [Last Taken ] Losartan Potassium [Cozaar 50 mg (*)] 50 mg PO DAILY 03/04/18 [Last Taken ] Multivitamins [Multivitamin (*)] 1 each PO DAILY 03/04/18 [Last Taken 03/03/18] Omeprazole 40 mg PO DAILY 03/04/18 [Last Taken 03/03/18] Rivaroxaban [Xarelto 10mg (*)] 10 mg PO Q2D 03/04/18 [Last Taken 03/03/18] Trulicity ROMERO 03/04/18 [Last Taken 03/02/18] buPROPion SR [Wellbutrin 150mg SR (*)] 150 mg PO BID 03/04/18 [Last Taken ] valACYclovir [Valtrex (*)] 500 mg PO BID PRN 03/04/18 [Last Taken Unknown] - NPO status NPO Since - Liquids (Date): 03/10/18 NPO Since - Liquids (Time): 08:00 NPO Since - Solids (Date): 03/10/18 NPO Since - Solids (Time): 08:00 - Smoking Hx Smoking Status: Never smoked - Family Anes Hx Family Hx Anesthesia Complications: none ANE Labs/Vital Signs - Labs Result Diagrams: 03/09/18 05:10 03/10/18 06:00 - Vital Signs Blood Pressure: 154/81 Heart Rate: 57 Respiratory Rate: 16 O2 Sat (%): 95 Height: 182.88 cm Weight: 128.639 kg ANE Physical Exam - Airway Neck exam: decreased ROM Mallampati Score: Class 4 Mouth exam: normal dental/mouth exam - Pulmonary Pulmonary: no respiratory distress - Cardiovascular Cardiovascular: regular rate and rhythym - ASA Status ASA Status: III ANE Anesthesia Plan Anesthesia Plan: general endotracheal anesthesia, MAC
[2018-03-10] MEDS ORDERED: fentaNYL 100 MCG/2 ML INJ ONE (14:07)
[2018-03-10] MEDS ORDERED: PROPOFOL 200 MG/20 ML VIAL ONE ×4 (14:07→15:56)
[2018-03-10] MEDS ORDERED: LIDOCAINE 2% 2 ML INJ ONE (15:58)
--- NOTE | 2018-03-10 16:09 | HOSPPROG ---
Hospitalist Progress Note Assessment/Plan: * Severe Sepsis - abscess and osteomyelitis bilateral feet -allergic rash with IV Zosyn - now on meropenem -to OR with Dr. Garcia to I&D abscess * Acute on chronic renal failure -back to baseline creatinine 2.2-2.8 -holding ARB * Hyperkalemia -hold ARB -low potassium diet -oral bicarb * Acute on chronic diastolic CHF * Severe pulmonary HTN - suspect due to VENANCIO -oxygen at night 3L * DM neuropathy with Charcot feet and chronic ulceration s/p recent debridement bilaterally -casting to improve compliance with NWB * DM -U-100 insulin * Afib s/p ablation -Xarelto * CAD/stents -LE evaluation for PVD would be beneficial but CKD limits ability to do CTA -check CHELY Subjective: no new complaints. Objective: Vital Signs Temp Pulse Resp BP Pulse Ox 36.4 C 57 L 16 154/81 H 95 03/10/18 13:54 03/10/18 14:02 03/10/18 14:02 03/10/18 14:02 03/10/18 14:02 Laboratory Results 03/09/18 05:10 03/10/18 06:00 03/09/18 03/10/18 03/11/18 05:59 05:59 05:59 Intake Total 100 100 350 Output Total 900 2100 500 Balance -800 -2000 -150 PT 16.2 SEC (12.0-15.0) H 03/04/18 14:25 INR 1.28 (0.83-1.16) H 03/04/18 14:25 - Physical Exam Constitutional: no apparent distress, appears nourished, not in pain Cardiovascular: regular rate and rhythym, no murmur, rub, or gallop Respiratory: no respiratory distress, no rales or rhonchi, clear to auscultation Skin: rash (worse), No mottled, No erythema, No induration Neurologic: AAOx3, sensation intact bilaterally Psychiatric: interacting appropriately, not anxious, not encephalopathic, thought process linear ICD10 Worksheet Patient Problems: Problems Problem Status Onset MRSA - Methicillin resistant Staphylococcus aureus infection Active Insulin-treated lnc-qsbdsmi-ietywukct diabetes mellitus Active Chronic kidney disease stage 3 Acute CAD - Coronary arteriosclerosis Active Paroxysmal atrial flutter Active History of - deep vein thrombosis Active Diabetic neuropathy Active Diabetic foot ulcer Acute Sepsis affecting skin Acute Chronic renal insufficiency Acute Fever Acute Sepsis Acute
[2018-03-10] MEDS ORDERED: NALOXONE HCL 0.4 MG/ML INJ IVP PRN (16:26)
[2018-03-10] MEDS ORDERED: LABETALOL HCL 5 MG/ML 20 ML MDV IVP PRN (16:26)
--- NOTE | 2018-03-10 16:26 | POSTANESTH ---
Post Anesthetic Evaluation Cardiovascular Status: Normal, Stable Respiratory Status: Normal, Stable Level of Consciousness/Mental Status: Mildly Sleepy, Arousable Pain Control: Adequate, Prn Tx Ordered Nausea/Vomiting Control: Adequate, Prn Tx Ordered Complications Possibly Related to Anesthesia: None Noted
--- NOTE | 2018-03-10 18:41 | PCMIDPN ---
Assessment/Plan: Assessment/Plan: * Fever/leukocytosis: Resolved after initiation of antibiotic therapy. Diagnostic evaluation revealed osteomyelitis of the left foot with concomitant abscess and osteomyelitis of the great toe of the right foot. Patient is now status postoperative management of both with cultures currently pending. Continue meropenem with modification accordingly as additional culture data available. Will review with Interventional Radiology possibility of tunneled IJ PICC given patient will potentially need hemodialysis in the future and would like to preserve arm veins. * Rash: Clinically improved today. Consistent with drug rash likely related to Zosyn use. Tolerating meropenem to date without evidence of enanthem. 03/10/18 18:38 Subjective: Patient with less pruritis over back. Just returned from OR for debridement of left foot and management of osteomyelitis of right foot. No sores in mouth or eye pain/redness. Objective: Vital Signs Temp Pulse Resp BP Pulse Ox 36.3 C 54 L 16 172/96 H 98 03/10/18 17:46 03/10/18 17:46 03/10/18 17:46 03/10/18 17:46 03/10/18 17:46 Microbiology 03/10/18 15:00 Gram Stain - Final Toe - Eswab Laboratory Results 03/09/18 05:10 03/10/18 06:00 03/09/18 03/10/18 03/11/18 05:59 05:59 05:59 Intake Total 100 100 870 Output Total 900 2100 925 Balance -800 -2000 -55 ESR 90 MM/HR (0-20) H 03/06/18 09:53 C-Reactive Protein 180.9 mg/L (<10.0) H 03/06/18 09:46 Meropenem # 1 Antibiotics # 7 Operative Gram stain and culture pending - Physical Exam General Appearance: alert, no apparent distress EENT: other (No conjunctival injection), No scleral icterus Extremities: inflammation (Bilateral operative dressings on feet) Skin: rash (Back with confluent faintly erythematous rash) ICD10 Worksheet Patient Problems: Problems Problem Status Onset Fever Acute Sepsis Acute CAD - Coronary arteriosclerosis Active Diabetic neuropathy Active History of - deep vein thrombosis Active Insulin-treated euc-uhional-bdrwovcql diabetes mellitus Active 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 Chronic kidney disease stage 3 Acute Chronic renal insufficiency Acute Diabetic foot ulcer Acute Sepsis affecting skin Acute
[2018-03-10] MEDS ORDERED: guaiFENesin/CODEINE PHOS 10 ML UDCUP PO PRN (20:58)
[2018-03-10] MEDS: guaiFENesin 600 MG TAB.ER PO SCH (22:27)
[2018-03-10] MEDS: CETIRIZINE 10 MG TAB PO SCH (22:27)
[2018-03-11] MEDS: MEROPENEM 1 GM in NS 100 ML IV SCH ×3 (00:06→23:57)
[2018-03-11] MEDS: LEVOTHYROXINE 200 MCG TAB PO SCH (04:48)
[2018-03-11] MEDS: DIPHENHYDRAMINE CREAM TP PRN (04:50)
[2018-03-11] MEDS: diphenhydrAMINE 25 MG CAP PO PRN ×2 (04:53→13:38)
[2018-03-11 05:20] LABS: PLATELET COUNT 397 10^3/uL (150-400)
[2018-03-11] MEDS: SODIUM BICARBONATE 650 MG TAB PO SCH ×2 (08:09→20:19)
[2018-03-11] MEDS: DULoxetine 30 MG CAP PO SCH (08:09)
[2018-03-11] MEDS: guaiFENesin 600 MG TAB.ER PO SCH ×2 (08:09→20:20)
[2018-03-11] MEDS: GABAPENTIN 100 MG CAP PO SCH ×2 (08:10→20:20)
[2018-03-11] MEDS: PANTOPRAZOLE SODIUM 40 MG TAB PO SCH (08:10)
[2018-03-11] MEDS: buPROPion SR 150 MG TAB PO SCH ×2 (08:10→20:20)
[2018-03-11] MEDS: FENOFIBRATE 145 MG TAB PO SCH (08:10)
[2018-03-11] MEDS: RIVAROXABAN 10 MG TAB PO SCH (08:10)
[2018-03-11] MEDS: ATENOLOL 25 MG TAB PO SCH (08:11)
[2018-03-11] MEDS: Insulin Degludec [Tresiba Flextouch U-100] SQ SCH (08:16)
[2018-03-11] MEDS: INSULIN REGULAR HUMAN 100 UNIT/ML UNIT SC SCH ×4 (08:16→20:21)
--- NOTE | 2018-03-11 11:22 | GOP ---
DATE OF OPERATION: 03/10/2018 SURGEON: Yehuda English DPM ANESTHESIA: IV MAC. No local infiltration of any anesthesias. The patient is completely neuropath ic. PREOPERATIVE DIAGNOSIS: Probable osteomyelitis, left foot, questionable osteomyelitis, right great t oe. POSTOPERATIVE DIAGNOSIS: Bony infection, abscess, left foot and right great toe. PROCEDURE PERFORMED: FINDINGS: ESTIMATED BLOOD LOSS: Approximately 20-30 cc. DESCRIPTION OF PROCEDURE: The patient was taken to the operating room, placed supine position. Afte r MAC anesthesia, both extremities were elevated, prepped and draped in the usual sterile OR fashion achieving a sterile field about the entire distal aspect of the extremities. Attention was directed to the dorsal aspect of the right great toe where a 1.5 inch linear incision was made over the interp halangeal joint. There were 2 different bony fragments noted at the head of the proximal phalanx and base of the distal phalanx. These were excised. Looking at this, the head of the proximal phalanx appeared to have had possibly some fractured areas and possibly infected head of the proximal phalanx was removed and sent for histologic evaluation for osteomyelitis. At this point, the toe was deemed to be very unstable with a remnant of the distal tuft of the distal phalanx. It was deemed necessar y to excise this. This was also sent to path for histologic evaluation for osteomyelitis and again t here were cultures sent for aerobic, anaerobic on the right great toe. There was good active bleedin g throughout the entire procedure. At this point, a fishmouth incision was made at the distal aspect of the toe, which ended up being a curved linear incision from distal lateral curving to proximal me dial. Upon debridement of all this area, the area was flushed copiously with dilute antibiotic solut ion. Deep closure was carried out via 3-0 Vicryl in a simple interrupted suture and skin closure was carried out via 3-0 Prolene in an alternating simple interrupted and horizontal mattress suture. Up on closure of the area, there was no excessive bleeding. It was deemed unnecessary to use a drain at this point on the right great toe. Xeroform, 4x4, Manolo and Coban were placed over the right great toe. At this point, attention was directed to the left foot where longitudinal converging semi-ellip tical incisions were made approximately 4-5 inches on the lateral aspect of the foot where previous s urgery had occurred. The incision was converging semi-elliptical. Debride of excessive scar tissue w as done superficially. At the level of the 5th metatarsal, approximately 1-2 cc of fluid were drained out of the area. These were sent for culture, aerobic, anaerobic. All necrotic tissue in that area was aggressively debrided. There was good active bleeding throughout the entire procedure. It shou ld be noted that prior to the procedure I did elevate the foot, exsanguinate, tourniquet was applied, but due to breakthrough bleeding due to calcification of the arteries, it was deemed necessary to re lease the tourniquet approximately 20-30 minutes into the case and this actually reduced the amount of bleeding in the area. Again, all necrotic tissue was debrided aggressively. I did probe proximal ly into the cuboid as well as dorsally on the foot and there were no other areas of abscess. After a pulse lavage flush of the area with dilute antibiotic solution, deep closure was carried out via 3-0 Vicryl in a simple interrupted suture. Subcu closure was carried out via 3-0 Vicryl in a simple int errupted suture and skin closure was carried out via 2-0 Prolene in a simple interrupted suture. A J ackson-Galeana close suction drain was placed deep where the area was debrided. Xeroform, fluffs, Kerl ix, and Coban were placed over the entire foot. The patient went to recovery in a satisfactory state with all vital signs stable. His prognosis is fair to good on the left foot and very good on the rig ht. The concern here is the infection, the depth of the infection, the fact that he needs a PICC li ne and that being on Xarelto contraindicates placement of a PICC line due to excessive bleeding. At this point, we are trying to reach a compromise as far as thinning his blood versus getting him on a PICC line for IV antibiotics for the next 6 weeks. I did have the nurse consult Infectious Disease o n this and hopefully they can figure out how to get this PICC line placed while the patient is in-jan se. In the meantime, he is to continue with IV antibiotics, will be readmitted to the floor and I an ticipate discharge within the next 2-3 days if everything goes well with the patient. PROCEDURE: Debride of the right great toe as well as the lateral aspect of the left foot. Preoperatively, looking at the MRIs and the MRI report, there appeared to be an abscess that formed o n the lateral aspect of the left foot, deep, that needed debriding and a bone biopsy. The patient gonzalez s been on IV antibiotics since being admitted approximately 6 days prior. Responded very well to the antibiotics. We have attempted multiple times to order a PICC line for the patient, but it is contr aindicated when you are on Xarelto and his INRs were over 5 on his last check. I did consult Infecti ous Disease on how to get a PICC line placed at some point while the patient is in-house. The patien t underwent a debride of both feet without complication. He did have a drain placed on the left lowe r extremity, ELLEN closed suction drain and was readmitted to [facility] for initial dressing change, postop observation. PREOPERATIVE DIAGNOSIS: Bony infection, abscess, left foot and right great toe. PROCEDURE: Debride both feet, great toe, right lateral, left foot. TOURNIQUET: There was a tourniquet utilized on the left lower extremity for a period of approximatel y one half hour. DRAIN: As stated, a drain was placed on the left lower extremity postoperatively. SPECIMEN SENT: Multiple cultures on both feet and bone biopsy for histologic evaluation for osteomye litis on both feet. /[id number]/MODL
--- NOTE | 2018-03-11 16:51 | PCMIDPN ---
Assessment/Plan: Assessment/Plan: * Osteomyelitis bilateral feet/left foot abscess status post incision and drainage and amputation of distal tuft of right great toe: Cultures no growth to date although remain relatively young. Will need 6 weeks of IV antibiotics for treatment of osteomyelitis. Difficult to achieve cure in the setting of Charcot arthropathy. If cultures do not show growth of Pseudomonas, will transition to ertapenem for daily administration. Will try to arrange placement of IJ tunneled PICC line for vein preservation as patient may require dialysis in the future. * Rash: Continued clinical improvement with marked decrease in rash. Tolerating meropenem well. * Leukocytosis: Mild increase in white count may be associated with surgical intervention. 03/11/18 16:46 03/11/18 16:51 Subjective: Patient with less itching over back. Loose stool but no recurrent diarrhea. Objective: Vital Signs Temp Pulse Resp BP Pulse Ox 36.9 C 60 12 143/76 H 90 L 03/11/18 11:14 03/11/18 11:14 03/11/18 11:14 03/11/18 11:14 03/11/18 11:14 Microbiology 03/10/18 15:00 Gram Stain - Final Foot - Eswab 03/10/18 15:30 Gram Stain - Final Other - Eswab 03/10/18 15:00 Gram Stain - Final Toe - Eswab Laboratory Results 03/11/18 04:19 03/11/18 04:19 03/10/18 03/11/18 03/12/18 05:59 05:59 05:59 Intake Total 100 1120 Output Total 2100 0355 325 Balance -2000 -1075 -325 ESR 90 MM/HR (0-20) H 03/06/18 09:53 C-Reactive Protein 180.9 mg/L (<10.0) H 03/06/18 09:46 Meropenem # 2 Antibiotics # 8 Operative cultures all pending with no growth to date - Physical Exam General Appearance: alert, no apparent distress EENT: dry mucous membranes, No scleral icterus, No conjunctival petechiae Extremities: inflammation (Left foot incision intact laterally with persistent edema; no expressible discharge; blood in ELLEN drain; no active cellulitis present ; right great toe amputation site with intact suture line and no cellulitis) Skin: other (Residual hyperpigmentation present over back without active erythematous rash) ICD10 Worksheet Patient Problems: Problems Problem Status Onset Fever Acute Sepsis Acute CAD - Coronary arteriosclerosis Active Diabetic neuropathy Active History of - deep vein thrombosis Active Insulin-treated mtb-kyaqwpd-ifcdljrag diabetes mellitus Active 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 Chronic kidney disease stage 3 Acute Chronic renal insufficiency Acute Diabetic foot ulcer Acute Sepsis affecting skin Acute
--- NOTE | 2018-03-11 17:16 | HOSPPROG ---
Hospitalist Progress Note Assessment/Plan: * Severe Sepsis - abscess and osteomyelitis bilateral feet -allergic rash with IV Zosyn - now on meropenem -s/p OR with Dr. Garcia to I&D abscess - await cultures -IR to place IJ catheter for home IV access - hold Xarelto * Acute on chronic renal failure -back to baseline creatinine 2.2-2.8 -holding ARB * Hyperkalemia -hold ARB -low potassium diet -oral bicarb * Acute on chronic diastolic CHF -now euvolemic * Severe pulmonary HTN - suspect due to VENANCIO -oxygen at night 3L * DM neuropathy with Charcot feet and chronic ulceration s/p recent debridement bilaterally -casting to improve compliance with NWB - casts now off * DM -U-100 insulin * Afib s/p ablation -Xarelto * CAD/stents -CHELY within normal limits which argues against PVD contributing Subjective: no new complaints. Objective: Vital Signs Temp Pulse Resp BP Pulse Ox 36.8 C 61 12 156/82 H 92 03/11/18 16:00 03/11/18 16:00 03/11/18 16:00 03/11/18 16:00 03/11/18 16:00 Microbiology 03/10/18 15:00 Gram Stain - Final Foot - Eswab 03/10/18 15:30 Gram Stain - Final Other - Eswab 03/10/18 15:00 Gram Stain - Final Toe - Eswab Laboratory Results 03/11/18 04:19 03/11/18 04:19 03/10/18 03/11/18 03/12/18 05:59 05:59 05:59 Intake Total 100 1120 Output Total 2100 2195 325 Balance -2000 -1075 -325 PT 16.2 SEC (12.0-15.0) H 03/04/18 14:25 INR 1.28 (0.83-1.16) H 03/04/18 14:25 d/w Dr. Reyna regarding IV abx plan CHELY reviewed - values WNL bilaterally - Physical Exam Constitutional: no apparent distress, appears nourished, not in pain Cardiovascular: regular rate and rhythym, no murmur, rub, or gallop Respiratory: no respiratory distress, no rales or rhonchi, clear to auscultation Gastrointestinal: normoactive bowel sounds, soft, non-tender abdomen, no palpable masses Skin: no rashes or abrasions, no fluctuance, no induration Neurologic: AAOx3, sensation intact bilaterally Psychiatric: interacting appropriately, not anxious, not encephalopathic, thought process linear ICD10 Worksheet Patient Problems: Problems Problem Status Onset Fever Acute Sepsis Acute CAD - Coronary arteriosclerosis Active Diabetic neuropathy Active History of - deep vein thrombosis Active Insulin-treated xdx-fousehq-bhnmouslj diabetes mellitus Active 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 Chronic kidney disease stage 3 Acute Chronic renal insufficiency Acute Diabetic foot ulcer Acute Sepsis affecting skin Acute
--- NOTE | 2018-03-11 17:19 | CPIP ---
DATE OF PROCEDURE: 03/10/2018 The patient was seen for CHELY studies. He demonstrates excellent peripheral pulsations at the ankle l evel and bilateral ABIs greater than 1. For a limited test, this seems to be a normal exam, although it was stated that he does not have any palpable pulses. If he is symptomatic, would possibly recom mend a CT angiogram for further evaluation or a complete arterial study with exercise. /[id number]/MODL
[2018-03-11] MEDS: MUPIROCIN 2% 22 GM OINT TP SCH (18:24)
[2018-03-11] MEDS: CETIRIZINE 10 MG TAB PO SCH (20:20)
[2018-03-12] MEDS: LEVOTHYROXINE 200 MCG TAB PO SCH (04:44)
[2018-03-12] MEDS: INSULIN REGULAR HUMAN 100 UNIT/ML UNIT SC SCH ×4 (07:52→21:08)
[2018-03-12] MEDS: ATENOLOL 25 MG TAB PO SCH (09:18)
[2018-03-12] MEDS: SODIUM BICARBONATE 650 MG TAB PO SCH ×2 (09:19→21:11)
[2018-03-12] MEDS: buPROPion SR 150 MG TAB PO SCH ×2 (09:19→21:11)
[2018-03-12] MEDS: Insulin Degludec [Tresiba Flextouch U-100] SQ SCH (09:19)
[2018-03-12] MEDS: DULoxetine 30 MG CAP PO SCH (09:19)
[2018-03-12] MEDS: GABAPENTIN 100 MG CAP PO SCH ×2 (09:19→21:11)
[2018-03-12] MEDS: guaiFENesin 600 MG TAB.ER PO SCH ×2 (09:19→21:11)
[2018-03-12] MEDS: PANTOPRAZOLE SODIUM 40 MG TAB PO SCH (09:19)
[2018-03-12] MEDS: FENOFIBRATE 145 MG TAB PO SCH (09:19)
[2018-03-12] MEDS: MUPIROCIN 2% 22 GM OINT TP SCH (11:54)
[2018-03-12] MEDS: ERTAPENEM 1 GM in NS 100 ML IV SCH (11:54)
--- NOTE | 2018-03-12 12:00 | ASMTCMCOM ---
CM Note CM Note Notes: CM spoke to DARCY Obregon regarding d/c POC. Pt will require 6 weeks of ivabx. Pt is getting a tunnel catheter today. CM met w/ pt and for dispo planning. Referral sent to [facility] for outpatient infusions. Pt had been current w/ [facility] in the past. Pt is agreeable to using [facility] again. [facility] is able to accept. CM to follow. Plan: DARCY ARAUZ w/ [place] Date Signed: 03/12/2018 11:59 AM Electronically Signed By:EVERETT Cabrales
--- NOTE | 2018-03-12 13:48 | HOSPPROG ---
Hospitalist Progress Note Assessment/Plan: 62 yo m w DM here w LE wounds, sepsis, HARSHIL Severe Sepsis - abscess and osteomyelitis bilateral feet -allergic rash with IV Zosyn - now on meropenem -s/p OR with Dr. Garcia to I&D abscess - await cultures -IR to place IJ catheter for home IV access - hold Xarelto septic physiology has resolved Acute on chronic renal failure -back to baseline creatinine 2.2-2.8 -holding ARB Hyperkalemia -hold ARB -low potassium diet -oral bicarb Acute on chronic diastolic CHF -now euvolemic Severe pulmonary HTN - suspect due to VENANCIO -oxygen at night 3L DM neuropathy with Charcot feet and chronic ulceration s/p recen debridement bilaterally -casting to improve compliance with NWB - casts now off DM -U-100 insulin Afib s/p ablation -Xarelto CAD/stents -CEHLY within normal limits which argues against PVD contributing suspect he has small vessel disease given longstanding DM dispo: inpt Subjective: case d/w dr marshall. afebrile Objective: Vital Signs Temp Pulse Resp BP Pulse Ox 36.6 C 66 16 163/87 H 97 03/12/18 07:29 03/12/18 09:18 03/12/18 07:29 03/12/18 07:29 03/12/18 07:29 Microbiology 03/10/18 15:00 Gram Stain - Final Toe - Eswab 03/10/18 15:00 Gram Stain - Final Foot - Eswab 03/10/18 15:30 Gram Stain - Final Other - Eswab Laboratory Results 03/11/18 04:19 03/12/18 04:55 03/11/18 03/12/18 03/13/18 05:59 05:59 05:59 Intake Total 1120 650 Output Total 2195 1650 650 Balance -1075 -1000 -650 PT 16.2 SEC (12.0-15.0) H 03/04/18 14:25 INR 1.28 (0.83-1.16) H 03/04/18 14:25 - Physical Exam Constitutional: no apparent distress, appears nourished Eyes: PERRL, anicteric sclera Ears, Nose, Mouth, Throat: moist mucous membranes, hearing normal Cardiovascular: regular rate and rhythym, no murmur, rub, or gallop, No tachycardia Respiratory: no respiratory distress, no rales or rhonchi Gastrointestinal: normoactive bowel sounds, soft, non-tender abdomen Genitourinary: no bladder fullness, No stiles in urethra Skin: warm, normal color Musculoskeletal: full muscle strength, no muscle tenderness, other (LE bandaged b/l) Neurologic: AAOx3 Psychiatric: interacting appropriately, not anxious ICD10 Worksheet Patient Problems: Problems Problem Status Onset Fever Acute Sepsis Acute CAD - Coronary arteriosclerosis Active Diabetic neuropathy Active History of - deep vein thrombosis Active Insulin-treated crq-agajhny-loafdnjtw diabetes mellitus Active 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 Chronic kidney disease stage 3 Acute Chronic renal insufficiency Acute Diabetic foot ulcer Acute Sepsis affecting skin Acute
[2018-03-12] MEDS ORDERED: LIDOCAINE 1% 300 MG/30 ML SDV ONE (14:34)
[2018-03-12] MEDS ORDERED: NALOXONE HCL 0.4 MG/ML INJ IVP PRN (14:49)
[2018-03-12] MEDS ORDERED: fentaNYL 100 MCG/2 ML INJ IVP PRN (14:49)
[2018-03-12] MEDS ORDERED: FLUMAZENIL 0.5 MG/5 ML MDV IVP PRN (14:49)
[2018-03-12] MEDS ORDERED: NS 1,000 ML IV SCH (15:00)
--- NOTE | 2018-03-12 16:04 | PDHPUP ---
History & Physical Update H&P update statement: This history and physical update is based on an assessment of the patient which was completed after admission or registration (within 24 hours), but prior to the surgery/procedure. Plan for tunneled small bore noncuffed CVC H&P update: H&P reviewed & patient examined, no change in patient's condition since H&P completed, changes noted
--- NOTE | 2018-03-12 16:05 | PDRADPN ---
Radiology Procedure Note Date of Procedure: 03/12/18 Radiologist: Gunner Avila Anesthesia: Local (Specify) (Lidocaine) Pre-op Diagnosis: Infection Post-op Diagnosis: Infection Indication: Need for joint terminal attack controller ABX Procedure: Tunneled small bore noncuffed CVC Finding(s): Chronic occlusion of right IJ. Patent right subclavian vein. This Tunneled catheter functions the same as a peripheral PICC with decreased rate of infection, and is a vein-preserving alternative with no risk of arm vein thrombosis. The Tunneled noncuffed catheter may be removed at any time the same as any peripheral PICC with hemostasis achieved via manual compression followed by a sterile, occlusive dressing. Inf/Abcess present in the surg proc area at time of surgery?: No
--- NOTE | 2018-03-12 18:29 | PCMIDPN ---
Assessment/Plan: Assessment/Plan: * Osteomyelitis bilateral feet/left foot abscess status post incision and drainage and amputation of distal tuft of right great toe: Left foot cultures with growth of Staphylococcus aureus and Enterobacter. Have transitioned meropenem to ertapenem given no isolation of Pseudomonas. Await susceptibility profile on Staphylococcus aureus (remote history of MRSA). If no MRSA, anticipate completing 6 weeks of therapy with ertapenem. Tunneled PICC line placed earlier today. * Rash: Largely resolved after discontinuation of Zosyn. * Leukocytosis: Mild increase in white count may be associated with surgical intervention. Will monitor over time. 03/12/18 18:26 Subjective: Patient without specific complaints. Tunneled PICC line placed earlier today. Objective: Vital Signs Temp Pulse Resp BP Pulse Ox 36.6 C 59 L 16 156/89 H 91 L 03/12/18 17:15 03/12/18 17:15 03/12/18 17:15 03/12/18 17:15 03/12/18 17:15 Microbiology 03/10/18 15:00 Gram Stain - Final Foot - Eswab 03/10/18 15:30 Gram Stain - Final Other - Eswab 03/10/18 15:00 Gram Stain - Final Toe - Eswab Laboratory Results 03/11/18 04:19 03/12/18 04:55 03/11/18 03/12/18 03/13/18 05:59 05:59 05:59 Intake Total 1120 650 20 Output Total 2195 1650 1100 Balance -1075 -1000 -1080 ESR 90 MM/HR (0-20) H 03/06/18 09:53 C-Reactive Protein 180.9 mg/L (<10.0) H 03/06/18 09:46 Ertapenem # 1, antibiotics # 9 Operative foot cultures with growth of Staphylococcus aureus and enterobacter - Physical Exam General Appearance: alert, no apparent distress EENT: No scleral icterus, No thrush, No conjunctival petechiae Respiratory: lungs clear, No respiratory distress Cardiac/Chest: regular rate, rhythm, other ( right IJ tunneled PICC line in place) Extremities: other ( both feet dressed postoperatively) Abdomen: non-tender ICD10 Worksheet Patient Problems: Problems Problem Status Onset Fever Acute Sepsis Acute CAD - Coronary arteriosclerosis Active Diabetic neuropathy Active History of - deep vein thrombosis Active Insulin-treated iuz-odwxnor-pbywbsneh diabetes mellitus Active 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 Chronic kidney disease stage 3 Acute Chronic renal insufficiency Acute Diabetic foot ulcer Acute Sepsis affecting skin Acute
[2018-03-12] MEDS: CETIRIZINE 10 MG TAB PO SCH (21:11)
[2018-03-13] MEDS: LEVOTHYROXINE 200 MCG TAB PO SCH (04:54)
--- NOTE | 2018-03-13 09:23 | PDIAF ---
- Diagnosis Diagnosis: Bilateral foot osteomyelitis Code Status: Full Code - Medication Management Discharge Medications: Medications to Continue on Transfer Atenolol [Tenormin 25 mg (*)] 25 mg PO DAILY 03/04/18 [Last Taken 03/03/18] Duloxetine HCl [Cymbalta] 30 mg PO DAILY 03/04/18 [Last Taken Unknown] Fenofibrate [Tricor 145 mg (*)] 145 mg PO DAILY 03/04/18 [Last Taken 03/03/18] Gabapentin [Neurontin 100 MG (*)] 200 mg PO BID 03/04/18 [Last Taken 03/03/18] Herbals/Supplements -Info Only 1 ea PO DAILY 03/04/18 [Last Taken Unknown] Insulin Degludec [Tresiba Flextouch U-100] 80 - 85 unit SQ DAILY 03/04/18 [Last Taken Unknown] Levothyroxine [Synthroid 200 mcg (*)] 200 mcg PO DAILY06 03/04/18 [Last Taken ] Losartan Potassium [Cozaar 50 mg (*)] 50 mg PO DAILY 03/04/18 [Last Taken ] Multivitamins [Multivitamin (*)] 1 each PO DAILY 03/04/18 [Last Taken 03/03/18] Omeprazole 40 mg PO DAILY 03/04/18 [Last Taken 03/03/18] Rivaroxaban [Xarelto 10mg (*)] 10 mg PO Q2D 03/04/18 [Last Taken 03/03/18] Trulicity ROMERO 03/04/18 [Last Taken 03/02/18] buPROPion SR [Wellbutrin 150mg SR (*)] 150 mg PO BID 03/04/18 [Last Taken ] valACYclovir [Valtrex (*)] 500 mg PO BID PRN 03/04/18 [Last Taken Unknown] Halfway Antibiotics: Ertapenem 1 g IV daily Syrup Maker Antibiotic Stop Date: 04/22/18 Discharge Medications: Refer to the Discharge Home Medication list for PRN reason. PICC Care - Routine: Yes - Orders Isolation Type: None - Labs/Radiology CBC w/diff Date: 03/17/18 (Needs weekly CBC, fax to Dr. Reyna [phone]) CMP Date: 03/17/18 (Needs weekly CMP, fax to Dr. Reyna ) - Follow Up Care Current Providers and Referrals: ROSALBA GREENBERG [Primary Care Provider] - As per Instructions Tam Reyna MD [Medical Doctor] - (Patient has an appointment with Dr. Reyna at the [facility] for Infectious Diseases March 27 at 10:00 a.m. )
--- NOTE | 2018-03-13 09:26 | PCMIDPN ---
Assessment/Plan: 1. Bilateral foot osteomyelitis status post post incision and drainage with abscess washout: Cultures are only growing Enterobacter cloacae, susceptible to Ertapenem, and MSSA. Ertapenem monotherapy will cover both. He will need 6 weeks of therapy, stop date April 22. He has a follow-up appoint with Dr. Reyna as outlined in the inter agency form. Status post tunneled PICC line; if antibiotics can be arranged today he can go home. He will need to follow up closely with his model maker firearms, Dr. English. 03/13/18 09:23 Subjective: Patient eager to go home. Objective: Ertapenem 1 g IV daily d2 No fevers Vital Signs Temp Pulse Resp BP Pulse Ox 36.5 C 55 L 12 161/91 H 92 03/13/18 07:30 03/13/18 07:30 03/13/18 07:30 03/13/18 07:30 03/13/18 07:30 Microbiology 03/10/18 15:30 Gram Stain - Final Other - Eswab 03/10/18 15:00 Gram Stain - Final Foot - Eswab 03/10/18 15:00 Gram Stain - Final Toe - Eswab Laboratory Results 03/11/18 04:19 03/13/18 04:55 03/12/18 03/13/18 03/14/18 05:59 05:59 05:59 Intake Total 650 270 Output Total 1650 2300 725 Balance -1000 -2029 -725 ESR 90 MM/HR (0-20) H 03/06/18 09:53 C-Reactive Protein 180.9 mg/L (<10.0) H 03/06/18 09:46 Wounds with MSSA and Enterobacter cloacae YANET to ertapenem less than 0.25 - Physical Exam General Appearance: no apparent distress, obese EENT: pharynx normal, No thrush Cardiac/Chest: other (Right upper chest with a PICC line in place, tunneled, no tenderness or erythema.) Extremities: other (Feet are wrapped; I did not take dressings down.) Skin: other (Rash on his back is totally resolved) ICD10 Worksheet Patient Problems: Problems Problem Status Onset Fever Acute Sepsis Acute CAD - Coronary arteriosclerosis Active Diabetic neuropathy Active History of - deep vein thrombosis Active Insulin-treated rcc-yrfbssh-gqttzpbks diabetes mellitus Active 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 Chronic kidney disease stage 3 Acute Chronic renal insufficiency Acute Diabetic foot ulcer Acute Sepsis affecting skin Acute
[2018-03-13] MEDS: GABAPENTIN 100 MG CAP PO SCH (10:11)
[2018-03-13] MEDS: ATENOLOL 25 MG TAB PO SCH (10:11)
[2018-03-13] MEDS: PANTOPRAZOLE SODIUM 40 MG TAB PO SCH (10:11)
[2018-03-13] MEDS: DULoxetine 30 MG CAP PO SCH (10:11)
--- NOTE | 2018-03-13 10:11 | HOSPPROG ---
Hospitalist Progress Note Assessment/Plan: 62 yo m w DM here w LE wounds, sepsis, HARSHIL Severe Sepsis - abscess and osteomyelitis bilateral feet -allergic rash with IV Zosyn - now on meropenem -s/p OR with Dr. Garcia to I&D abscess - await cultures -IR to place IJ catheter for home IV access - hold Xarelto septic physiology has resolved Acute on chronic renal failure -back to baseline creatinine 2.2-2.8 -holding ARB spoke w dr de anda, will follow up next week or thereafter hold ARB until then Hyperkalemia -hold ARB -low potassium diet -oral bicarb Acute on chronic diastolic CHF -now euvolemic Severe pulmonary HTN - suspect due to VENANCIO -oxygen at night 3L DM neuropathy with Charcot feet and chronic ulceration s/p recen debridement bilaterally -casting to improve compliance with NWB - casts now off DM -U-100 insulin Afib s/p ablation -Xarelto CAD/stents -CHELY within normal limits which argues against PVD contributing suspect he has small vessel disease given longstanding DM dispo: home today > 30 minutes on dc Subjective: has picc. ready for dc Objective: Vital Signs Temp Pulse Resp BP Pulse Ox 36.5 C 55 L 12 161/91 H 92 03/13/18 07:30 03/13/18 07:30 03/13/18 07:30 03/13/18 07:30 03/13/18 07:30 Microbiology 03/10/18 15:30 Gram Stain - Final Other - Eswab 03/10/18 15:00 Gram Stain - Final Foot - Eswab 03/10/18 15:00 Gram Stain - Final Toe - Eswab Laboratory Results 03/11/18 04:19 03/13/18 04:55 03/12/18 03/13/18 03/14/18 05:59 05:59 05:59 Intake Total 650 270 Output Total 1650 2300 725 Balance -999 -2030 -725 PT 16.2 SEC (12.0-15.0) H 03/04/18 14:25 INR 1.28 (0.83-1.16) H 03/04/18 14:25 - Physical Exam Constitutional: no apparent distress, appears nourished Eyes: PERRL, anicteric sclera Ears, Nose, Mouth, Throat: moist mucous membranes, hearing normal Cardiovascular: regular rate and rhythym, no murmur, rub, or gallop Respiratory: no respiratory distress, no rales or rhonchi Gastrointestinal: normoactive bowel sounds, soft, non-tender abdomen Genitourinary: no bladder fullness, No stiles in urethra Skin: warm, normal color Musculoskeletal: full muscle strength Neurologic: AAOx3 Psychiatric: interacting appropriately ICD10 Worksheet Patient Problems: Problems Problem Status Onset Fever Acute Sepsis Acute CAD - Coronary arteriosclerosis Active Diabetic neuropathy Active History of - deep vein thrombosis Active Insulin-treated iyi-qtvhztz-hqdfhplcj diabetes mellitus Active 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 Chronic kidney disease stage 3 Acute Chronic renal insufficiency Acute Diabetic foot ulcer Acute Sepsis affecting skin Acute
[2018-03-13] MEDS: buPROPion SR 150 MG TAB PO SCH (10:12)
[2018-03-13] MEDS: guaiFENesin 600 MG TAB.ER PO SCH (10:13)
[2018-03-13] MEDS: FENOFIBRATE 145 MG TAB PO SCH (10:13)
[2018-03-13] MEDS: SODIUM BICARBONATE 650 MG TAB PO SCH (10:13)
[2018-03-13] MEDS: INSULIN REGULAR HUMAN 100 UNIT/ML UNIT SC SCH ×2 (10:14→11:38)
[2018-03-13] MEDS: MUPIROCIN 2% 22 GM OINT TP SCH (10:15)
[2018-03-13] MEDS: Insulin Degludec [Tresiba Flextouch U-100] SQ SCH (10:16)
[2018-03-13] MEDS: EPOETIN ALFA 10,000 UNIT/ML VIAL SC SCH (11:41)
[2018-03-13] MEDS: ERTAPENEM 1 GM in NS 100 ML IV SCH (11:42)
[2018-03-13 11:49] VITALS: BP 168/92
--- NOTE | 2018-03-13 11:49 | ASMTLACE ---
LACE Length of stay for Answers: 7-13 days current admission Acuity / Level of Answers: Yes Care: Did the patient have an inpatient admission? Comorbidities - select Answers: Coronary Artery Disease all that apply Diabetes (uncontrolled or controlled) Moderate or severe liver or renal disease Other Notes: HTN; AFib; HLD # of Emergency department Answers: 1-2 visits in the last 6 months Score: 17 Date Signed: 03/13/2018 11:48 AM Electronically Signed By:Maria Ines Mari RN
--- NOTE | 2018-03-13 12:07 | ASMTDCNOTE ---
Case Management Discharge Discharge Order Complete? Answers: Yes Patient to Obtain Answers: Independently Medications Transportation Arranged Answers: Family/Friends Faxed Final Orders Answers: Yes Agency/Facility Transfer Answers: Yes Report Printed & Faxed to Receiving Agency Family Notified Answers: Yes Discharge Comments Notes: D/w MD, final orders faxed. Manuela at [facility] and Katheryn at [facility] notified. CM met with pt and to go over details. Date Signed: 03/13/2018 12:06 PM Electronically Signed By:Maria Ines Mari RN
--- NOTE | 2018-03-13 16:26 | GDS ---
DISCHARGE DIAGNOSES: 1. Longstanding diabetes. 2. Lower extremity wounds with osteomyelitis. Micro notable for methicillin susceptible staphylococ cus aureus and Enterobacter cloaca. 3. Acute on chronic kidney disease with a creatinine at the baseline of about 2.2. 4. Severe sepsis, septic physiology resolved, source is legs. 5. Small-vessel disease of the lower extremities. 6. Severe pulmonary hypertension. 7. Diabetic neuropathy with Charcot feet. 8. Atrial fibrillation status post ablation on Xarelto. 9. Hyperkalemia, resolved. 10. Coronary artery disease with stents. CONSULT DURING THIS ADMISSION: Infectious Disease, Podiatry, Nephrology, Interventional Radiology. PERTINENT IMAGING: Includes an MRI of the lower extremities, of the left foot showing postsurgical c hanges at the 5th metatarsal base of the 5th proximal phalanx with probable osteomyelitis in the 1st and 3rd metatarsal lateral cuneiform cuboid. On the right lower extremity, probable osteomyelitis at the residual terminal tuft of the great toe. HOSPITAL COURSE: Please see admission history and physical by Dr. Elena Lucia. Patient presented the afternoon of the . He has had a cast that was cut off. He had casts that were changed weekly to prevent weightbearing. It turns out the patient was in fact walking. He was admitted with fever s, chills, and lab abnormalities including elevated creatinine. He was admitted with sepsis, acute o n chronic kidney disease. He was initiated on antibiotics. MRIs were performed prompting a trip to [facility] operating room with Dr. English. The patient subsequently did well postoperatively. His creatini ne stabilized at about 2.2. His ARB was held. Blood sugars were well controlled. He had good recen t control. He is discharged home with IV antibiotics and a tunneled catheter. He was advised to dalia sandra outpatient followup with Dr. Wesley Montoya, and I discussed the case with Dr. Montoya, to fol low up on his creatinine. His ARB was held at the time of discharge. New medications are the holding of the ARB and ertapenem. /[id number]/MODL
--- NOTE | 2018-03-14 09:17 | ASDISCHSUM ---
Discharge Information Plan Status:IV ABX/Infusion Medically Cleared to Leave: Discharge Date:03/13/2018 01:15 PM D/C Disposition:Home Health Service ADT D/C Disposition:HHSNOTBCH Projected Discharge Date:03/13/2018 11:00 AM Transportation at D/C:Family Discharge Delay Reason: Follow-Up Date:03/13/2018 11:00 AM Discharge Slot: Final Diagnosis: Placement Information Referral Type:Home Infusion Referral ID:[id number] Provider Name:[facility] Address 1:[address] Address 2: City:[place] Selection Factors: State:[place] Referral Type:*Home Health Care Services Referral ID:[id number] Provider Name:[facility] Address 1:[address] Address 2: City:[place] Selection Factors: State:[place] Patient Contact Information Contact Name:JORGITO Relationship: Address:[address] Work Phone: City:[place] [facility] Phone: [facility]/Zip Code:[place] [address] Email: Financial Information Financial Class:HMO and PPO Plans Primary Plan Desc:[facility] Primary Plan Number:[id number] Secondary Plan Desc: Secondary Plan Number: Assessment Information LACE LACE Length of stay for Answers: 7-13 days current admission Acuity / Level of Answers: Yes Care: Did the patient have an inpatient admission? Comorbidities - select Answers: Coronary Artery Disease all that apply Diabetes (uncontrolled or controlled) Moderate or severe liver or renal disease Other Notes: HTN; AFib; HLD # of Emergency department Answers: 1-2 visits in the last 6 months Score: 17 Date Signed: 03/13/2018 11:48 AM Electronically Signed By:Maria Ines Bredehoeft, RN [facility] Progress Note CM Note CM Note Notes: Spoke w/pt and , he was admitted for diabetic foot wounds that may be source of infection. He currently goes to 's office and wound care clinic and does not have a home care agency. Pt is supposed to be non weigt bearing, pt does not think they will have any needs. Physical Therapy cleared him for home. Anticipate pt will dc home with support of when medically stable, CM available for any changes. DC Plan: Independent Date Signed: 03/05/2018 11:16 AM Electronically Signed By:Maria Ines Mari RN [facility] Progress Note CM Note CM Note Notes: Spoke w/MD, pt going for MRI of both feet to check for osteomylitis/abscess. If positive, may need IV abx. CM met with pt and because they had questions about getting a newer wheelchair. Pt's is going to have shoulder surgery soon and needs a wheelchair that will be easier to manoeuvre. CM gave her a loan closet list and OT to go and speak with her about medical supply places. Pt is now TBD until we have a clearer plan of pt's needs. Otherwise he will dc home with . Date Signed: 03/07/2018 11:38 AM Electronically Signed By:Maria Ines Mari RN [facility] Progress Note CM Note CM Note Notes: CM spoke with floor RN, patient to be treated for osteomyelitis and will require 6 weeks of antibiotics. Consult tomorrow with Dr. English, may get PICC placement. CM to follow. Date Signed: 03/09/2018 10:41 AM Electronically Signed By:Lizette Pierce [facility] Progress Note CM Note CM Note Notes: CM spoke to DARCY Obregon regarding d/c POC. Pt will require 6 weeks of ivabx. Pt is getting a tunnel catheter today. CM met w/ pt and for dispo planning. Referral sent to [facility] for outpatient infusions. Pt had been current w/ [facility] in the past. Pt is agreeable to using [facility] again. [facility] is able to accept. CM to follow. Plan: DARCY ARAUZ w/ [facility] Date Signed: 03/12/2018 11:59 AM Electronically Signed By:EVERETT Cabrales Case Management Discharge Plan Note Case Management Discharge Discharge Order Complete? Answers: Yes Patient to Obtain Answers: Independently Medications Transportation Arranged Answers: Family/Friends Faxed Final Orders Answers: Yes Agency/Facility Transfer Answers: Yes Report Printed & Faxed to Receiving Agency Family Notified Answers: Yes Discharge Comments Notes: D/w , final orders faxed. Manuela at [facility] and Katheryn at [facility] notified. CM met with pt and to go over details. Date Signed: 03/13/2018 12:06 PM Electronically Signed By:Maria Ines Mari RN Intervention Information
--- NOTE | 2018-03-18 10:53 | PQFORM ---
PHYSICIAN QUERY FORM Needs Your Response This query form is being sent to you to assure this patient record is coded properly. Please respond to the question below: COVER SEAMER QUESTION: Dear Dr. English, For coding purposes (there is a different code choice for excisional versus non excisional debridement)- please clarify if the debridement done on the 'Left' foot on 10 Mar 2018 was: ___~ Excisional The procedure on the left was excisional on the abscess. ___~ Other Thank you SERGEY Killian HIM/Coding Dept. [phone] INSTRUCTIONS FOR RESPONSE: Answer question by clicking on the "Edit Document" button. Move cursor to area below the stars. When complete, hit "Save." Click on the "Sign" button, then click "Sign" again. Type in your PIN and hit "Enter." MTDD
== END 2018-03-13 13:15 | disposition home health service (06) | DRG 854 ==
LOC: F3E 17:00
PROVIDERS: ADMIT Internal Medicine; ATTEND Internal Medicine
PROC: 0QCQ0ZZ Extirpation of Matter from Right Toe Phalanx, Open Approach (ICD-10-PCS; principal; 2018-03-10 14:00)
PROC: 0JBR0ZZ Excision of Left Foot Subcutaneous Tissue and Fascia, Open Approach (ICD-10-PCS; principal; 2018-03-10 14:00)
PROC: 0QBQ0ZZ Excision of Right Toe Phalanx, Open Approach (ICD-10-PCS; principal; 2018-03-10 14:00)
PROC: 0Y9N0ZZ Drainage of Left Foot, Open Approach (ICD-10-PCS; principal; 2018-03-10 14:00)
PROC: 02H633Z Insertion of Infusion Device into Right Atrium, Percutaneous Approach (ICD-10-PCS; 2018-03-12)
DX: A41.01 Sepsis due to Methicillin susceptible Staphylococcus aureus (principal); E11.628 Type 2 diabetes mellitus with other skin complications; M86.172 Other acute osteomyelitis, left ankle and foot; N17.9 Acute kidney failure, unspecified; I12.9 Hypertensive chronic kidney disease with stage 1 through stage 4 chronic kidney disease, or unspecified chronic kidney disease; N18.4 Chronic kidney disease, stage 4 (severe); R65.20 Severe sepsis without septic shock; L97.519 Non-pressure chronic ulcer of other part of right foot with unspecified severity; L97.529 Non-pressure chronic ulcer of other part of left foot with unspecified severity; L89.892 Pressure ulcer of other site, stage 2; E11.621 Type 2 diabetes mellitus with foot ulcer; E11.40 Type 2 diabetes mellitus with diabetic neuropathy, unspecified; E11.618 Type 2 diabetes mellitus with other diabetic arthropathy; I27.20 Pulmonary hypertension, unspecified; I48.91 Unspecified atrial fibrillation; I25.10 Atherosclerotic heart disease of native coronary artery without angina pectoris; E87.5 Hyperkalemia; G47.33 Obstructive sleep apnea (adult) (pediatric); Z79.01 Long term (current) use of anticoagulants; Z95.5 Presence of coronary angioplasty implant and graft; Z23 Encounter for immunization; Z91.14 Patient's other noncompliance with medication regimen
CPT/HCPCS: 96365; 97110-GO; 97162-GP; 97165-GO; 97530-GP; G0008; G0009; J0885; J1335; J1815; J2185; J2250; J2310; J2543; J2704; J3010; J3370